=== PATIENT | male | born 1950 | race Two or more races ===

== ENCOUNTER 2025-01-23 12:00 | Inpatient (IN) | payer MEDICARE, OTHER ==
[~2025-01-23] VITALS: Ht 175.3 cm; Wt 63.0 kg
[2025-01-23] VITALS (7 sets, daily range): BP systolic 102–111; BP diastolic 64–79; PULSE 84–110; RESP 14–20; TEMP 97.8–99.6; O2SAT 92–99
--- NOTE | 2025-01-23 12:15 | ED.PDOC ---
History of Present Illness HPI Comments 74-year-old male came to the ER stating that he has been having cough shortness a breath with a past 10 days. He continues to smoke cigarettes. Does have a history of hypotension for which he states he does take his medication. He has not seen a doctor for some time as he moved up here recently. His saturation was in the low 80s when he arrived. He was placed on 2 L oxygen which increased to above 90%. He does use accessory muscles to help him breathe. No leg swelling. Denies chest pain. Denies any other symptoms. Chief Complaint: Shortness of Breath Time Seen by MD: 12:06 Reviewed Notes: Nurses Notes, Medications, Allergies Allergies: Coded Allergies: NO KNOWN ALLERGIES (Unverified , 01/23/25) Information Source: Patient Mode of Arrival: Wheelchair Severity: Moderate Timing: Days Duration: Since onset Past Medical History PAST MEDICAL HISTORY: HTN Surgical History: Denies all surgeries Social History Smoker: Cigarettes Alcohol: Denies ETOH Use Drugs: Denies Drug Use Constitutional: denies: chills, diaphoresis, fatigue, fever, malaise, sweats, weakness, others EENTM: denies: blurred vision, double vision, ear bleeding, ear discharge, ear drainage, ear pain, ear ringing, eye pain, eye redness, hearing loss, mouth pain, mouth swelling, nasal discharge, nose bleeding, nose congestion, nose pain, photophobia, tearing, throat pain, throat swelling, voice changes, others Respiratory: reports: cough, shortness of breath; denies: hemoptysis, orthopnea, SOB at rest, SOB with excertion, stridor, wheezing, others Cardiovascular: denies: chest pain, dizzy spells, diaphoresis, Dyspnea on exertion, edema, irregular heart beat, left arm pain, lightheadedness, palpitations, PND, syncope, others Gastrointestinal: denies: abdomen distended, abdominal pain, blood streaked bowels, constipated, diarrhea, dysphagia, difficulty swallowing, hematemesis, melena, nausea, poor appetite, poor fluid intake, rectal bleeding, rectal pain, vomiting, others Genitourinary: denies: burning, dysuria, flank pain, frequency, hematuria, incontinence, penile discharge, penile sore, pain, testicle pain, testicle swelling, urgency, others Neurological: denies: dizziness, fainting, headache, left sided numbness, left sided weakness, numbness, paresthesia, pre-existing deficit, right sided numbness, right sided weakness, seizure, speech problems, tingling, tremors, weakness, others Musculoskeletal: denies: back pain, gout, joint pain, joint swelling, muscle pain, muscle stiffness, neck pain, others Integumetry: denies: bruises, change in color, change in hair/nails, dryness, laceration, lesions, lumps, rash, wounds, others Allergic/Immunocompromised: denies: Difficulty Healing, Frequent Infections, Hives, Itching, others Hematologic/Lymphatic: denies: anemia, blood clots, easy bleeding, easy bruising, swollen glands, others Endocrine: denies: excessive hunger, excessive sweating, excessive thirst, excessive urination, flushing, intolerance to cold, intolerance to heat, unexplained weight gain, unexplained weight loss, others Psychiatric: denies: anxiety, bipolar disorder, depression, hopeless, panic disorder, schizophrenia, sleepless, suicidal, others Physical Exam General Appearance: Moderate Distress HEENT: Normal ENT Inspection, Pharynx Normal, TMs Normal Neck: Full Range of Motion, Non-Tender, Normal, Normal Inspection Respiratory: Accessory Muscle Use, Respiratory Distress, Wheezing Cardiovascular: No Edema, No JVD, No Murmur, No Gallop, Normal Peripheral Pulses, Tachycardia Breast Exam: Deferred Gastrointestinal: No Organomegaly, Non Tender, No Pulsatile Mass, Normal Bowel Sounds, Soft Genitalia: Deferred Pelvic: Deferred Rectal: Deferred Extremities: No calf tenderness, Normal inspection, Normal range of motion, No pedal edema Musculoskeletal : Apperance: Normal Neurologic: Alert, No Motor Deficits, No Sensory Deficits Cerebellar Function: NOT DONE Reflexes: NOT DONE Skin: Normal Color Peripheral Pulses: 3+ Radial (R), 3+ Radial (L) Lymphatic: No Adenopathy Was a procedure done? Was a procedure done?: No EKG EKG : Pulse Rate (adult): 139 Stanton: Normal Cardiac Rhythm: ST Differential Dx Considerations may include: Pneumonia Electrolyte imbalance X-Ray, Labs, Meds, VS Vital Signs Date Time Temp Pulse Resp B/P (MAP) Pulse Ox O2 Delivery O2 Flow Rate FiO2 01/23/25 13:17 84 20 Nasal Cannula* 2 28 01/23/25 12:45 99.6 121 20 102/79 (87) 98 99.6 01/23/25 12:45 121 22 98 Nasal Cannula 4.0 01/23/25 12:43 20 97 Nasal Cannula* 4 36 01/23/25 12:15 139 01/23/25 12:11 139 01/23/25 12:03 99.5 144 32 131/69 (89) 85 99.5 Lab Test 01/23/25 12:45 01/23/25 12:34 Range/Units White Blood Count 22.3 H 4.4-10.8 10^3/uL Red Blood Count 3.86 L 4.5-5.90 10^6/uL Hemoglobin 13.7 13.5-17.5 g/dL Hematocrit 38.9 L 41.0-53.0 % Mean Corpuscular Volume 100.8 H 80.0-100.0 fL Mean Corpuscular Hemoglobin 35.5 H 28.0-32.0 pg Mean Corpuscular Hemoglobin Concent 35.2 32.0-36.0 g/dL Red Cell Distribution Width 14.9 H 11.8-14.3 % Platelet Count 450 140-450 10^3/uL Mean Platelet Volume 7.6 6.9-10.8 fL Neutrophils (%) (Auto) 93.2 H 37.0-80.0 % Lymphocytes (%) (Auto) 2.6 L 10.0-50.0 % Monocytes (%) (Auto) 3.9 0.0-12.0 % Eosinophils (%) (Auto) 0.0 0.0-7.0 % Basophils (%) (Auto) 0.3 0.0-2.0 % Neutrophils # (Auto) 20.8 H 1.6-8.6 10 ^3/uL Lymphocytes # (Auto) 0.6 0.4-5.4 10 ^3/uL Monocytes # (Auto) 0.9 0-1.3 10 ^3/uL Eosinophils # (Auto) 0 0-0.8 10 ^3/uL Basophils # (Auto) 0.1 0-0.2 10 ^3/uL Nucleated Red Blood Cells 0.0 % Sodium Level 129 L 136-145 mmol/L Potassium Level 4.5 3.5-5.1 mmol/L Chloride Level 91 L 98-107 mmol/L Carbon Dioxide Level 29 20-31 mmol/L Anion Gap 9 5-15 Blood Urea Nitrogen 23 9-23 mg/dL Creatinine 0.95 0.700-1.30 mg/dL Glomerular Filtration Rate Calc 83 >90 mL/min BUN/Creatinine Ratio 24.2 H 10.0-20.0 Serum Glucose 146 H 74-106 mg/dL Lactic Acid Level 2.7 *H 0.4-2.0 mmol/L Calcium Level 8.4 L 8.7-10.4 mg/dL Troponin I High Sensitivity 29 </=54 ng/L Blood Gas Specimen Type Arterial Blood Gas Sample Site Left radial Blood Gas Patient Temperature 37.0 Arterial Blood Date Drawn [id number] Arterial Blood pH 7.571 *H 7.350-7.450 Arterial Blood Partial Pressure CO2 29.4 L 35.0-48.0 mmHg Arterial Blood Partial Pressure O2 78.7 L 83.0-108.0 mmHg Arterial Blood HCO3 26.4 21.0-28.0 mmol/L Arterial Blood Oxygen Saturation 96.0 94.0-98.0 % Arterial Blood Base Excess 5.0 H -2.0-3.0 mmol/L Arterial Blood Oxyhemoglobin 94.8 94.0-98.0 % Arterial Blood Carboxyhemoglobin 0.9 0.5-1.5 % Arterial Blood Methemoglobin 0.4 0.0-1.5 % Tyron Test Yes Blood Gas Total Hemoglobin 13.50 13.5-17.5 g/dL Blood Gas Liter Flow 4.00 Blood Gas Modality Nasal cannula FiO2 % 36.0 Blood Gas Critical Value Read Back yes Blood Gas Notified Whom lida Yarbrough md Blood Gas Notified Time [id number] Blood Gas Notified By Current Medications Medications (Trade) Dose Ordered Sig/Sobeida Route Start Time Stop Time Status Last Admin Ceftriaxone Sodium 50 ml @ 100 mls/hr ONCE ONCE IV 01/23/25 12:15 01/23/25 12:44 DC 01/23/25 13:00 Azithromycin 250 ml @ 125 mls/hr ONCE ONCE IV 01/23/25 12:15 01/23/25 14:14 01/23/25 13:13 Methylprednisolone Sodium Succinate (Solu Medrol) 125 mg ONCE ONCE IV 01/23/25 12:15 01/23/25 12:17 DC 01/23/25 13:00 Albuterol (Ventolin Medneb) 5 mg ONCE ONCE NEB 01/23/25 12:15 01/23/25 12:17 DC 01/23/25 12:43 Ipratropium [place] (Atrovent Medneb) 0.5 mg ONCE ONCE NEB 01/23/25 12:15 01/23/25 12:17 DC 01/23/25 12:43 Magnesium Sulfate/ Dextrose 100 ml @ 100 mls/hr ONCE ONCE IV 01/23/25 12:15 01/23/25 13:14 DC 01/23/25 13:13 Patient alert. Complaining of shortness a breath. Vitals stable. Placed on oxygen. Continues to smoke cigarettes. Counseled patient on effects of smoking cigarettes for 15 minutes. Establish intravenous access. Was given steroid. Was given Rocephin. Was given azithromycin. Was given breathing treatment. Reviewed his history pain EKG reviewed does not show any acute changes. Explained to the patient. Continue cardiac monitoring. Chest x-ray reviewed does show pneumonia. Chest XR: FINDINGS: Lines and Tubes: None Lungs: Right upper lung consolidative opacity. Pleura: No effusion. No pneumothorax. Cardiomediastinal contours: Unremarkable Bones: No acute osseous abnormality. IMPRESSION: Right upper lung pneumonia. Images Reviewed?: Images reviewed and evaluated by me Time of 1ST Reevaluation: 12:12 Reevaluation 1ST: Unchanged Patient Education/Counseling: Diagnosis, Treatment, Prognosis Family Education/Counseling: No Family Present Departure 1 Departure Time of Disposition: 12:14 Impression: Primary Impression: Acute respiratory failure Qualified Codes: J96.01 - Acute respiratory failure with hypoxia Additional Impression: Pneumonia Qualified Codes: J18.9 - Pneumonia, unspecified organism Disposition: ADMITTED INPATIENT Admit to: Med Surg Condition: Guarded Critical Care Note Critical Care Time?: Yes (90 min-critical care time only) Critical care comment: Continue to monitor Stability Stability form required: No Heart Score Heart Score: Heart Score Response (Comments) Value History Slightly Suspicious 0 EKG Normal 0 Age >65 2 Risk Factors >3 or Hx ASHD 2 Troponin Normal limit 0 Total 4 I personally scribed for JESSE YARBROUGH MD ([email or web address]) on 01/23/25 at 13:49. Electronically submitted by Richard Neal ([email or web address]). JESSE YARBROUGH MD Jan 23, 2025 12:15
--- NOTE | 2025-01-23 12:23 | ECG ---
[facility] Test Date: 2025-01-23 Test Time: 12:11:49 Pat Name: AVRIL JENKINS Department: ER Room: Gender: M Skiff Operator: KARMEN : 1950 Requested By: JESSE YARBROUGH Order Number: [id number] Reading MD: Thom Hernandez Measurements Intervals [place] Rate: 139 P: 72 DC: 128 QRS: 31 QRSD: 76 T: 59 QT: 303 QTc: 461 Interpretive Statements Sinus tachycardia Ventricular premature complex Abnormal R-wave progression, early transition Electronically Signed On 01-23-2025 13:48:07 PDT by Thom Hernandez Please click the below link to view image of tracing.
[2025-01-23] MEDS: ALBUTEROL SULF 2.5 MG/0.5ML(0.5%) NEB SOLN NEB ONE (12:43)
[2025-01-23] MEDS: IPRATROPIUM BROM 0.5 MG/2.5ML INH SOL NEB ONE (12:43)
--- NOTE | 2025-01-23 12:52 | DVH ---
EXAM: XY CHEST PORTABLE Indication: sob Technique: Single frontal view of the chest was obtained Comparison: None FINDINGS: Lines and Tubes: None Lungs: Right upper lung consolidative opacity. Pleura: No effusion. No pneumothorax. Cardiomediastinal contours: Unremarkable Bones: No acute osseous abnormality. IMPRESSION: Right upper lung pneumonia.
[2025-01-23] MEDS: cefTRIAXone 1GM/50ML D5W 50 ML IV ONE (13:00)
[2025-01-23] MEDS: methylPREDNISolone SOD SUCC 125 MG/2 ML VL IV ONE (13:00)
[2025-01-23 13:03] LABS: Eosinophils # (auto) 0 10 ^3/uL (0-0.8); Hemoglobin 13.7 g/dL (13.5-17.5); Lymphocytes # (auto) 0.6 10 ^3/uL (0.4-5.4)
[2025-01-23 13:04] LABS: Basophils # (auto) 0.1 10 ^3/uL (0-0.2); Basophils % (auto) 0.3 % (0.0-2.0); Hematocrit 38.9 % (41.0-53.0); Lymphocytes % (auto) 2.6 % (10.0-50.0); Mean Corpuscular Hemoglobin 35.5 pg (28.0-32.0); Mean Corpuscular Hgb Conc. 35.2 g/dL (32.0-36.0); Mean Corpuscular Volume 100.8 fL (80.0-100.0); Monocytes # (auto) 0.9 10 ^3/uL (0-1.3); Monocytes % (auto) 3.9 % (0.0-12.0); Neutrophils # (auto) 20.8 10 ^3/uL (1.6-8.6); Neutrophils % (auto) 93.2 % (37.0-80.0); Platelet Count (auto) 450 10^3/uL (140-450); Red Blood Cells 3.86 10^6/uL (4.5-5.90); Red Cell Distribution Width 14.9 % (11.8-14.3); White Blood Cell 22.3 10^3/uL (4.4-10.8)
[2025-01-23 13:10] LABS: Potassium 4.5 mmol/L (3.5-5.1)
[2025-01-23 13:11] LABS: Anion Gap 9 (5-15); Carbon Dioxide 29 mmol/L (20-31)
[2025-01-23] MEDS: AZITHROMYCIN 500MG/ 250ML 250 ML IV ONE (13:13)
[2025-01-23] MEDS: MAGNESIUM SULFATE 1GM/100ML 100 ML IV ONE (13:13)
[2025-01-23 13:15] LABS: Calcium 8.4 mg/dL (8.7-10.4); Chloride 91 mmol/L (98-107); Sodium 129 mmol/L (136-145)
[2025-01-23 13:16] LABS: BUN/Creatinine Ratio 24.2 (10.0-20.0); Blood Urea Nitrogen 23 mg/dL (9-23)
[2025-01-23 13:17] LABS: Glucose 146 mg/dL (74-106)
[2025-01-23 13:20] LABS: Lactic Acid w/Reflex 2.7 mmol/L (0.4-2.0)
[2025-01-23] MEDS: SODIUM CHLORIDE 0.9% 1,000 ML IV ONE ×3 (14:15→15:30)
[2025-01-23] MEDS ORDERED: ACETAMINOPHEN 325 MG TAB PO PRN (16:00)
[2025-01-23] MEDS ORDERED: VANCOMYCIN PER PHARMACY 0 MG IV SCH ×2 (16:00→16:15)
[2025-01-23] MEDS ORDERED: HYDROcodone-ACET 5/325MG TAB PO PRN (16:00)
--- NOTE | 2025-01-23 16:24 | DVHHPRES ---
History of Present Illness Resident Creating Document: EDWARD WU RESIDENT History of Present Illness This is a 74-year-old male with past medical history of hypertension and chronic back pain. Patient presented to the ED due to chronic cough associated with shortness of breaths and right upper chest tenderness. Patient states that the cough started two weeks ago initially was not associated with tenderness for shortness of breaths. Patient states that after a couple of days of chronic cough he started developing right upper chest tenderness associated with shortne ss of breaths and sputum production that was yellowish in color. Patient also states that five days ago he started developing a lump in the right upper chest which is erythematous, warmth to palpation and very tender to soft touch as well. Patient reports decreasing appetite and has lost a couple of lb in the last week but when asked about weight loss in the past six months the patient denied. The patient also reported recent night sweats but denied fever or chills. Initial labs [place] [address] with unremarkable BNP. Lactic acid was elevated at 2.7, troponins came back negative, EKG was showing sinus tachycardia with no ST segment abnormalities. Patient was initially placed on 4 L of oxygen through nasal cannula and was sta rted on IV antibiotics and steroids. Initial chest x-ray was ordered showing a right upper lung opacity. Upon my examination, there is a erythematous elevated lump located in the right upper chest the level of the clavicle that is erythematous and warm and tender to palpation. We will order a CT scan of the chest without contrast to determine if the opacity seen in the x-ray is actually inside or outside the lung. We will admit the patient for further assessment and management. Cardiovascular: HTN Musculoskeletal: Chronic low back pain Past Surgical History: None Family History: None Smoke: No ALCOHOL: none Drugs: Marijuana Lives: with Family Domestic Violence: Neg Review of Systems Constitutional: No: Fever, Chills, Sweats, Weakness, Malaise, Other Eyes: No: Pain, Vision change, Conjunctivae inflammation, Eyelid inflammation, Other, Redness ENT: No: Ear pain, Ear discharge, Nose pain, Nose discharge, Nose congestion, Mouth pain, Mouth swelling, Throat pain, Throat swelling, Other Respiratory: Cough, Shortness of breath, SOB with excertion; No: Dry, Wheezing, Hemoptysis, Pleuritic Pain, Sputum, Wheezing, Other Cardiovascular: Chest Pain; No: Palpitations, Orthopnea, Paroxysmal Noc. Dyspnea, Edema, Lt Headedness, Other Gastrointestinal: No: Nausea, Vomiting, Abdominal Pain, Diarrhea, Constipation, Melena, Hematochezia, Other Genitourinary: No Dysuria, No Frequency, No Incontinence, No Hematuria, No Retention, No Other Musculoskeletal: neck pain (Neck pain in the right side), shoulder pain (Shoulder pain), arm pain (Arm pain); No: other, back pain, hand pain, leg pain, foot pain Skin: Other (There is a lump with erythema, warm and tender to palpation in the right upper chest); No: Rash, Lesions, Jaundice, Bruising Neurological: No: Weakness, Numbness, Incoordination, Change in speech, Confusion, Seizures, Other Allergies: Coded Allergies: NO KNOWN ALLERGIES (Unverified , 01/23/25) Exam Vital Signs Vital Signs Date Time Temp Pulse Resp B/P (MAP) Pulse Ox O2 Delivery O2 Flow Rate FiO2 01/23/25 13:17 84 20 Nasal Cannula* 2 28 01/23/25 12:45 99.6 102/79 (87) 99.6 General Appearance: Alert, Oriented X3, Cooperative, No acute distress HEENT: Atraumatic, PERRLA, EOMI, Mucous membr. moist/pink Respiratory: Clear to auscultation, Normal air movement Cardiovascular: Regular rate, Normal S1, Normal S2, No murmurs, Other (There is a lump with erythema, warm and tender to palpation in the right upper chest) Abdominal: Normal bowel sounds, Soft, No tenderness, No hepatospenomegaly, No masses Extremities: No clubbing, No cyanosis, No edema, Normal pulses, No tenderness/swelling Skin: No rashes, No breakdown, No significant lesion (There is a lump with erythema, warm and tender to palpation in the right upper chest) Neuro: Normal gait, Normal speech, Strength at 5/5 X4 ext, Normal tone, Sensation intact, Cranial nerves 3-12 NL, Reflexes 2+ Psych/Mental Status: Mental status NL, Mood NL Labs/Xrays Labs Test 01/23/25 14:50 01/23/25 13:56 01/23/25 12:45 01/23/25 12:34 Range/Units Lactic Acid Level 2.6 *H 0.4-2.0 mmol/L Troponin I High Sensitivity 29 </=54 ng/L White Blood Count 22.3 H 4.4-10.8 10^3/uL Red Blood Count 3.86 L 4.5-5.90 10^6/uL Hemoglobin 13.7 13.5-17.5 g/dL Hematocrit 38.9 L 41.0-53.0 % Mean Corpuscular Volume 100.8 H 80.0-100.0 fL Mean Corpuscular Hemoglobin 35.5 H 28.0-32.0 pg Mean Corpuscular Hemoglobin Concent 35.2 32.0-36.0 g/dL Red Cell Distribution Width 14.9 H 11.8-14.3 % Platelet Count 450 140-450 10^3/uL Mean Platelet Volume 7.6 6.9-10.8 fL Neutrophils (%) (Auto) 93.2 H 37.0-80.0 % Lymphocytes (%) (Auto) 2.6 L 10.0-50.0 % Monocytes (%) (Auto) 3.9 0.0-12.0 % Eosinophils (%) (Auto) 0.0 0.0-7.0 % Basophils (%) (Auto) 0.3 0.0-2.0 % Neutrophils # (Auto) 20.8 H 1.6-8.6 10 ^3/uL Lymphocytes # (Auto) 0.6 0.4-5.4 10 ^3/uL Monocytes # (Auto) 0.9 0-1.3 10 ^3/uL Eosinophils # (Auto) 0 0-0.8 10 ^3/uL Basophils # (Auto) 0.1 0-0.2 10 ^3/uL Nucleated Red Blood Cells 0.0 % Sodium Level 129 L 136-145 mmol/L Potassium Level 4.5 3.5-5.1 mmol/L Chloride Level 91 L 98-107 mmol/L Carbon Dioxide Level 29 20-31 mmol/L Anion Gap 9 5-15 Blood Urea Nitrogen 23 9-23 mg/dL Creatinine 0.95 0.700-1.30 mg/dL Glomerular Filtration Rate Calc 83 >90 mL/min BUN/Creatinine Ratio 24.2 H 10.0-20.0 Serum Glucose 146 H 74-106 mg/dL Calcium Level 8.4 L 8.7-10.4 mg/dL Blood Gas Specimen Type Arterial Blood Gas Sample Site Left radial Blood Gas Patient Temperature 37.0 Arterial Blood Date Drawn [id number] Arterial Blood pH 7.571 *H 7.350-7.450 Arterial Blood Partial Pressure CO2 29.4 L 35.0-48.0 mmHg Arterial Blood Partial Pressure O2 78.7 L 83.0-108.0 mmHg Arterial Blood HCO3 26.4 21.0-28.0 mmol/L Arterial Blood Oxygen Saturation 96.0 94.0-98.0 % Arterial Blood Base Excess 5.0 H -2.0-3.0 mmol/L Arterial Blood Oxyhemoglobin 94.8 94.0-98.0 % Arterial Blood Carboxyhemoglobin 0.9 0.5-1.5 % Arterial Blood Methemoglobin 0.4 0.0-1.5 % Tyron Test Yes Blood Gas Total Hemoglobin 13.50 13.5-17.5 g/dL Blood Gas Liter Flow 4.00 Blood Gas Modality Nasal cannula FiO2 % 36.0 Blood Gas Critical Value Read Back yes Blood Gas Notified Whom lida Campbell md Blood Gas Notified Time [id number] Blood Gas Notified By Assessment/Plan Assessment/Plan Assessment/Plan Acute Hypoxic respiratory failure likely due to Gram-positive/Gram-negative pneumonia Possible right upper chest cellulitis, R/O Abscess Sepsis sec to above -we will chest x-ray is showing a right upper lobe opacity, not clear if it is actually inside the lung or it could be an abscess outside the lung. -1 L of fluid bolus NS -start IV vancomycin -start IV Zosyn -Ordered CT scan of the chest with contrast -lactic acid was 2.7 -EKG showed sinus tachycardia with no ST segment elevation or depression. -troponins came back normal -currently on 4 L of oxygen through nasal cannula saturating 97% -ordered urine and blood cultures -ordered sputum culture and MRSA nares -respiratory therapy with albuterol and ipratropium med nebs q.6 Primary hypertension -BP currently on lower side -Monitor BP and add meds as needed chronic back pain -continue baclofen 5mg daily Goals of care discussed with the patient and son at bedside for >30min, FULL CODE Plan discussed with Dr. Ornelas Plan discussed with: Patient, Son My Orders Orders - WUILLEMIER C,EDWARD RESIDENT Procedure Category Date Status Time Admit ADMIT 01/23/25 Transmitted 15:51 Code Status CODE 01/23/25 Transmitted 15:51 Vital Signs [facility] 01/23/25 In Process 15:51 Review Orders With [facility] 01/23/25 In Process Adm.Md 15:51 Encourage Activity As [facility] 01/23/25 In Process Tolerate 15:51 Regular Diet DIET 01/23/25 Transmitted Dinner Acetaminophen Tablet [facility] 01/23/25 Logged (Tylenol Tablet) 16:00 Notify Md Of Changes [facility] 01/23/25 In Process From Base 15:51 Advance Directive [facility] 01/23/25 In Process 15:51 Urinalysis LAB 01/23/25 Logged 15:51 Complete Blood Count LAB 01/24/25 Verified 04:00 Lipid Panel LAB 01/23/25 Logged 15:51 Urine Bacterial MANA 01/23/25 Logged Culture 15:51 Patient Condition ORDERS 01/23/25 Transmitted 15:51 Allergies [facility] 01/23/25 In Process 15:51 Hydrocodone-Acet PHA 01/23/25 Logged 5/325mg Tab (Ancram 16:00 Drug Screen LAB 01/23/25 Logged 15:51 Hemoglobin A1c LAB 01/23/25 Logged 15:51 Enoxaparin Sodium PHA 01/24/25 Logged (Lovenox) 10:00 Vancomycin Per PHA 01/23/25 Logged Pharmacy 16:00 Piperacillin-Tazob PHA 01/23/25 Logged 3.375gm (Zosyn 3.375g 18:00 Blood Culture MANA 01/23/25 Logged 16:[address] 01/23/25 Logged 16:01 Lactic Acid W/ Reflex LAB 01/23/25 Verified Order 16:15 Date of Service: Jan 23, 2025 Billing Provider: KEIKO ORNELAS MD Common Visit Codes: 19542-[id number] INP/OBS CARE (HIGH) Secondary Visit Codes: 19434-[id number] CARE PLAN 30 MINUTES ED[facility] WU RESIDENT Jan 23, 2025 16:24 KEIKO ORNELAS MD Jan 23, 2025 17:00
[2025-01-23 16:25] LABS: LDL Cholesterol 57 mg/dL (< 100); Triglycerides 127 mg/dL (< 150)
[2025-01-23 16:27] LABS: Cholesterol 105 mg/dL (< 200)
[2025-01-23 16:28] LABS: HDL Cholesterol 8 mg/dL (40-59)
--- NOTE | 2025-01-23 17:00 | DVH ---
Procedure: CT CHEST WITHOUT CONTRAST Study Date and Requested Time: 01/23 04:11 PM Streak: RIGHT UPPER CHEST CELLULITIS/ABSCESS VS RUL PNA Comparison: Chest radiograph 01/23/2025 Dose: CTDI: 15.89 mGy DLP: 647.64 mGycm Technique: Multiplanar images obtained through the chest without contrast Findings: Large area of multiloculated complex fluid collection with internal foci of air extending from the vi sualized right lower neck to the right anterior upper chest wall with extension into the soft tissues posterior to the medial sternum and medial 1st and 2nd ribs. There is mild to moderate soft tissue edema of the partially visualized right lower neck and right-si ded chest wall with involvement of the visualized proximal right upper extremity. Minimal soft tissue edema of the left chest wall. There is asymmetric enlargement of the right upper anterior chest wall muscles. There is mass effect on the right thyroid lobe by the collection. Otherwise, the thyroid gland is un remarkable.. Heart size is within normal limits. No evidence of aortic aneurysm. The pulmonary trunk is normal in size. No significant lymphadenopathy. Severe emphysematous changes bilateral lungs. No pneumothorax. Scattered bilateral lung atelectasis a nd scarring. Trace left-sided pleural effusion. No destructive osseous lesions are noted. Multilevel mild loss of vertebral body height of the thorac ic spine which appears chronic. Impression: Soft tissue edema of the [id number]-[id number]-left chest wall with complex multiloculated fluid collect ion with multiple foci of air extending from the right lower neck soft tissues to the right anterior upper chest musculatures with extension posterior to the right medial clavicle and posterior to the 1 st and 2nd ribs. There is mass effect on the anterior superior right upper lobe by the complex collection without invo lvement of the lung parenchyma. Severe emphysematous changes of bilateral lungs with scattered areas of atelectasis / scarring.
[2025-01-23] MEDS: VANCOMYCIN 1GM/200ML PM 200 ML IV ONE (17:45)
[2025-01-23] MEDS ORDERED: PIPERACILLIN-TAZOB 3.375GM 100 ML IV SCH ×2 (18:00)
[2025-01-23] MEDS: CLINDAMYCIN 600MG IV 50 ML IV ONE (18:15)
[2025-01-23] MEDS: HYDROcodone-ACET 5/325MG TAB PO PRN (18:19)
[2025-01-23] MEDS: IPRATROPIUM BROM 0.5 MG/2.5ML INH SOL NEB SCH (18:32)
[2025-01-23] MEDS: ALBUTEROL SULF 2.5 MG/0.5ML(0.5%) NEB SOLN NEB SCH (18:32)
[2025-01-23 18:42] LABS: Cannabinoid Screen, Urine Pos (NEGATIVE)
[2025-01-23 18:47] LABS: Urine Bacteria FEW /hpf (None Seen); Urine Blood 1+ /uL (Negative); Urine Budding Yeast OCCASIONAL /hpf (None Seen); Urine Clarity Turbid (Clear); Urine Color Dark-Yellow (Yellow); Urine Mucus FEW (None Seen); Urine Protein, UAD TRACE (Negative); Urine Squamous Epithelial Cell FEW /hpf (<5); Urine Urobilinogen OVER mg/dL (Negative); Urine WBC 16 /HPF (0-3); Urine pH 5.5 (5.0-9.0)
[2025-01-23 18:49] LABS: Amphetamine Screen, Urine Neg (NEGATIVE); Barbiturate Scree,Urine Neg (NEGATIVE); Benzodiazephine Screen, Urine Neg (NEGATIVE); Cocaine Screen, Urine Neg (NEGATIVE); Opiate Scree,Urine Neg (NEGATIVE); Phencyclidine Screen, Urine Neg (NEGATIVE)
[2025-01-23] MEDS: IPRATROPIUM BROM 0.5 MG/2.5ML INH SOL ONE (18:52)
[2025-01-23] MEDS: ALBUTEROL SULF 2.5 MG/0.5ML(0.5%) NEB SOLN ONE (18:52)
[2025-01-23] MEDS: MEROPENEM 1GM IVPB 50 ML IV ONE (19:30)
--- NOTE | 2025-01-23 19:47 | DVHINCON2 ---
Date of service: Jan 23, 2025 History of Present Illness HPI 74-year-old male presented to the emergency department with a cough, shortness of breath, and tenderness in the upper chest.The cough began a couple of weeks ago, as he woke up one morning experiencing it. After a few days of having this chronic cough, he developed tenderness in the right upper chest, which was accompanied by shortness of breath and sputum production. The sputum was yellowi sh in color.Five days ago, he noticed a painful lump on his right chest. This lump in the right upper chest is erythematous and warm to the touch. Additionally, he has experienced a decrease in appetite and has lost a few pounds over the past week. Past Medical History Cardiac: HTN Pulmonary: No pertinent Hx Central Nervous System: No pertinent Hx GI: No pertinent Hx Hemotology/Oncology: No pertinent Hx Hepatobiliary: No pertinent Hx Psychiatric: No pertinent Hx Musculoskeletal: Chronic low back pain Rheumotologic: No pertinent Hx Infectious Disease: No peritnent Hx ENT: No pertinent Hx Endocrine: No pertinent Hx Dermatology: No pertinent Hx Past Surgical History: No pertinent Hx Smoker: Positive Alocohol: None Drugs: Marijuana Lives with: With family Review of Systems Constitutional: No symptom reported Ears, Nose, & Throat: No symptom reported Eyes: No symptom reported Pulmonary/Respiratory: Cough, Other (shortness of breath) Gastrointestinal: No symptom reported Genitourinary: No symptom reported Musculoskeletal: No symptom reported Skin: No symptom reported Psychiatric: No symptom reported Endocrine: No symptom reported Hemotologic/Lymphatic: No symptom reported H&P Exam Vital Signs Vital Signs Date Time Temp Pulse Resp B/P (MAP) Pulse Ox O2 Delivery O2 Flow Rate FiO2 01/23/25 18:43 110 20 95 Nasal Cannula* 4 36 01/23/25 18:41 98.8 114/71 (85) 98.8 General Appeara: Well developed, Well nourished, Normal Appearance Head Exam: Normal inspection Neck Exam: Normal inspection Pulmonary/Respiratory: Normal inspection Skin Exam: Other (right chest lump, red and tender) Labs/Xrays Labs Test 01/23/25 17:35 01/23/25 15:58 01/23/25 14:50 01/23/25 12:45 Range/Units Urine Color Dark-yellow Yellow Urine Clarity Turbid H Clear Urine pH 5.5 5.0-9.0 Urine Specific [place] 1.020 1.001-1.035 Urine Protein Trace H Negative Urine Ketones Negative Negative Urine Blood 1+ H Negative /uL Urine Nitrite Negative Negative Urine Bilirubin 1+ Negative Urine Urobilinogen Over Negative mg/dL Urine Leukocyte Esterase 1+ Negative /uL Urine RBC 3 0 - 3 /hpf Urine Microscopic WBC 16 H 0-3 /HPF Urine Squamous Epithelial Cells Few <5 /hpf Urine Bacteria Few H None Seen /hpf Urine Mucus Few None Seen Urine Yeast (Budding) Occasional None Seen /hpf Urine Glucose Normal Normal mg/dL Urine Opiates Screen Neg NEGATIVE Urine Fentanyl Screen Neg NEGATIVE Urine Barbiturates Screen Neg NEGATIVE Urine Phencyclidine Screen Neg NEGATIVE Urine Amphetamines Screen Neg NEGATIVE Urine Benzodiazepines Screen Neg NEGATIVE Urine Cocaine Screen Neg NEGATIVE Urine Cannabinoids Screen Pos NEGATIVE Troponin I High Sensitivity 25 </=54 ng/L Lactic Acid Level 2.6 *H 0.4-2.0 mmol/L White Blood Count 22.3 H 4.4-10.8 10^3/uL Red Blood Count 3.86 L 4.5-5.90 10^6/uL Hemoglobin 13.7 13.5-17.5 g/dL Hematocrit 38.9 L 41.0-53.0 % Mean Corpuscular Volume 100.8 H 80.0-100.0 fL Mean Corpuscular Hemoglobin 35.5 H 28.0-32.0 pg Mean Corpuscular Hemoglobin Concent 35.2 32.0-36.0 g/dL Red Cell Distribution Width 14.9 H 11.8-14.3 % Platelet Count 450 140-450 10^3/uL Mean Platelet Volume 7.6 6.9-10.8 fL Neutrophils (%) (Auto) 93.2 H 37.0-80.0 % Lymphocytes (%) (Auto) 2.6 L 10.0-50.0 % Monocytes (%) (Auto) 3.9 0.0-12.0 % Eosinophils (%) (Auto) 0.0 0.0-7.0 % Basophils (%) (Auto) 0.3 0.0-2.0 % Neutrophils # (Auto) 20.8 H 1.6-8.6 10 ^3/uL Lymphocytes # (Auto) 0.6 0.4-5.4 10 ^3/uL Monocytes # (Auto) 0.9 0-1.3 10 ^3/uL Eosinophils # (Auto) 0 0-0.8 10 ^3/uL Basophils # (Auto) 0.1 0-0.2 10 ^3/uL Nucleated Red Blood Cells 0.0 % Sodium Level 129 L 136-145 mmol/L Potassium Level 4.5 3.5-5.1 mmol/L Chloride Level 91 L 98-107 mmol/L Carbon Dioxide Level 29 20-31 mmol/L Anion Gap 9 5-15 Blood Urea Nitrogen 23 9-23 mg/dL Creatinine 0.95 0.700-1.30 mg/dL Glomerular Filtration Rate Calc 83 >90 mL/min BUN/Creatinine Ratio 24.2 H 10.0-20.0 Serum Glucose 146 H 74-106 mg/dL Hemoglobin A1c 5.5 <5.7 % A1C Calcium Level 8.4 L 8.7-10.4 mg/dL B-Type Natriuretic Peptide 73.15 0-100 pg/mL Triglycerides Level 127 < 150 mg/dL Cholesterol Level 105 < 200 mg/dL LDL Cholesterol 57 < 100 mg/dL HDL Cholesterol 8 L 40-59 mg/dL Test 01/23/25 12:34 Range/Units Blood Gas Specimen Type Arterial Blood Gas Sample Site Left radial Blood Gas Patient Temperature 37.0 Arterial Blood Date Drawn [id number] Arterial Blood pH 7.571 *H 7.350-7.450 Arterial Blood Partial Pressure CO2 29.4 L 35.0-48.0 mmHg Arterial Blood Partial Pressure O2 78.7 L 83.0-108.0 mmHg Arterial Blood HCO3 26.4 21.0-28.0 mmol/L Arterial Blood Oxygen Saturation 96.0 94.0-98.0 % Arterial Blood Base Excess 5.0 H -2.0-3.0 mmol/L Arterial Blood Oxyhemoglobin 94.8 94.0-98.0 % Arterial Blood Carboxyhemoglobin 0.9 0.5-1.5 % Arterial Blood Methemoglobin 0.4 0.0-1.5 % Tyron Test Yes Blood Gas Total Hemoglobin 13.50 13.5-17.5 g/dL Blood Gas Liter Flow 4.00 Blood Gas Modality Nasal cannula FiO2 % 36.0 Blood Gas Critical Value Read Back yes Blood Gas Notified Whom lida Campbell md Blood Gas Notified Time [id number] Blood Gas Notified By Assessment/Plan Problem List: (1) Chest wall tenderness (2) Swelling, mass, or lump in chest (3) Acute respiratory failure (4) Pneumonia Plan Right upper chest: There is a soft lump that presents with warmth, redness (erythema), and tenderness to palpation. It does not appear to be necrotizing fasciitis. The case was discussed with Dr. Yang, as the patient is refusing surgery. I explained to the patient that he has an elevated white blood cell count, fever, and the results of the CT scan. Despite this, the patient continues to refuse surgical intervention. He expressed concerns about his ability to withstand surgery and mentioned feeling weak. The patient also stated that he has already discussed his decision with his and son, expressing that he does not want to proceed with surgery. as the patient is refusing surgery. I explained to the patient that he has an elevated white blood cell count, fever, and the results of the CT scan. Despite this, the patient continues to refuse surgical intervention. He expressed concerns about his ability to withstand surgery and mentioned feeling weak. The patient also stated that he has already discussed his decision with his and son, expressing that he does not want to proceed with surgery. Continue with IV antibiotics Plan discussed with: Patient, Other (Dr. Yang) Visit Coding Surgery Date of Service if different f: Jan 23, 2025 Billing Provider: PORFIRIO YANG MD Surgery Visit Codes: [id number] - INP CONSULT <80 MIN KARTHIK BURDICK NP Jan 23, 2025 19:47
[2025-01-23] MEDS ORDERED: BACLOFEN 10 MG TAB PO SCH (21:00)
[2025-01-23] MEDS: BACLOFEN 10 MG TAB PO SCH (23:45)
[2025-01-24] VITALS (16 sets, daily range): BP systolic 115–125; BP diastolic 67–76; PULSE 58–118; RESP 16–18; TEMP 97.3–98.7; O2SAT 91–100
[2025-01-24] MEDS: IPRATROPIUM BROM 0.5 MG/2.5ML INH SOL ONE ×3 (00:36→23:50)
[2025-01-24] MEDS: ALBUTEROL SULF 2.5 MG/0.5ML(0.5%) NEB SOLN ONE ×3 (00:40→23:51)
[2025-01-24] MEDS: MEROPENEM 1GM IVPB 50 ML IV SCH (03:54)
[2025-01-24] MEDS: CLINDAMYCIN 900MG IV 50 ML IV SCH (06:03)
[2025-01-24 07:41] LABS: Eosinophils # (auto) 0 10 ^3/uL (0-0.8); Hematocrit 33.5 % (41.0-53.0); Hemoglobin 11.6 g/dL (13.5-17.5); Lymphocytes # (auto) 0.9 10 ^3/uL (0.4-5.4); Mean Corpuscular Hgb Conc. 34.7 g/dL (32.0-36.0); Neutrophils # (auto) 15.9 10 ^3/uL (1.6-8.6); Platelet Count (auto) 424 10^3/uL (140-450)
[2025-01-24 07:45] LABS: Basophils # (auto) 0.1 10 ^3/uL (0-0.2); Basophils % (auto) 0.3 % (0.0-2.0); Lymphocytes % (auto) 5.1 % (10.0-50.0); Mean Corpuscular Hemoglobin 35.5 pg (28.0-32.0); Mean Corpuscular Volume 102.1 fL (80.0-100.0); Monocytes # (auto) 0.8 10 ^3/uL (0-1.3); Monocytes % (auto) 4.5 % (0.0-12.0); Neutrophils % (auto) 90.1 % (37.0-80.0); Red Blood Cells 3.28 10^6/uL (4.5-5.90); Red Cell Distribution Width 15.2 % (11.8-14.3); White Blood Cell 17.7 10^3/uL (4.4-10.8)
--- NOTE | 2025-01-24 09:12 | DVHINCON2 ---
Date of service: Jan 24, 2025 Family History: Patient reports no known family medical history. Allergies: Coded Allergies: NO KNOWN ALLERGIES (Unverified , 01/23/25) Home Meds Unable to Obtain Active Prescriptions or Reported Meds Current Medications Current Medications Medications (Trade) Dose Ordered Sig/Sobeida Route PRN Reason Start Time Stop Time Status Last Admin Acetaminophen (Tylenol Tablet) 650 mg Q6HP PRN PO PAIN SCALE 1-3 OR TEMP>100.4 01/23/25 16:00 01/23/25 16:11 DC Acetaminophen/ Hydrocodone Bitart ([place] 5/325MG Tab) 1 tab Q4HP PRN PO MODERATE PAIN (4-6 PAIN SCALE) 01/23/25 16:00 01/23/25 16:11 DC Enoxaparin Sodium (Lovenox) 40 mg DAILY SC 01/24/25 10:00 01/23/25 16:11 DC Vancomycin HCl 0 ml @ 0 mls/hr UD IV 01/23/25 16:00 01/23/25 16:11 DC Piperacillin Sod/ Tazobactam Sod 100 ml @ 100 mls/hr Q6HR IV 01/23/25 18:00 01/23/25 16:11 DC Albuterol (Ventolin Medneb) 2.5 mg Q6HR NEB 01/23/25 18:00 01/24/25 06:20 Ipratropium [place] (Atrovent Medneb) 0.5 mg Q6HR NEB 01/23/25 18:00 01/24/25 06:20 Baclofen (Liorisal Tablet) 5 mg DAILY PO 01/23/25 21:00 01/23/25 23:37 DC Enoxaparin Sodium (Lovenox) 40 mg DAILY SC 01/24/25 10:00 Vancomycin HCl 0 ml @ 0 mls/hr UD IV 01/23/25 16:15 Piperacillin Sod/ Tazobactam Sod 100 ml @ 100 mls/hr Q6HR IV 01/23/25 18:00 01/23/25 18:14 DC Acetaminophen (Tylenol Tablet) 650 mg Q6HP PRN PO PAIN SCALE 1-3 OR TEMP>100.4 01/23/25 16:15 Acetaminophen/ Hydrocodone Bitart ([place] 5/325MG Tab) 1 tab Q4HP PRN PO MODERATE PAIN (4-6 PAIN SCALE) 01/23/25 16:15 01/23/25 18:19 Clindamycin Phosphate 50 ml @ 50 mls/hr Q8HR IV 01/24/25 06:00 01/24/25 06:03 Meropenem 50 ml @ 17 mls/hr Q8H IV 01/24/25 04:00 01/24/25 03:54 Baclofen (Liorisal Tablet) 5 mg DAILY PO 01/23/25 23:45 01/23/25 23:45 Vital Signs Vital Signs Date Time Temp Pulse Resp B/P (MAP) Pulse Ox O2 Delivery O2 Flow Rate FiO2 01/24/25 06:20 96 18 95 01/24/25 06:20 Nasal Cannula 2.0 01/24/25 06:20 28 01/24/25 05:00 98.3 125/72 (89) 98.3 Labs/Diagnostic Data Labs Test 01/24/25 05:56 01/23/25 17:35 01/23/25 15:58 01/23/25 14:50 Range/Units White Blood Count 17.7 H 4.4-10.8 10^3/uL Red Blood Count 3.28 L 4.5-5.90 10^6/uL Hemoglobin 11.6 #L 13.5-17.5 g/dL Hematocrit 33.5 #L 41.0-53.0 % Mean Corpuscular Volume 102.1 H 80.0-100.0 fL Mean Corpuscular Hemoglobin 35.5 H 28.0-32.0 pg Mean Corpuscular Hemoglobin Concent 34.7 32.0-36.0 g/dL Red Cell Distribution Width 15.2 H 11.8-14.3 % Platelet Count 424 140-450 10^3/uL Mean Platelet Volume 7.6 6.9-10.8 fL Neutrophils (%) (Auto) 90.1 H 37.0-80.0 % Lymphocytes (%) (Auto) 5.1 L 10.0-50.0 % Monocytes (%) (Auto) 4.5 0.0-12.0 % Eosinophils (%) (Auto) 0.0 0.0-7.0 % Basophils (%) (Auto) 0.3 0.0-2.0 % Neutrophils # (Auto) 15.9 H 1.6-8.6 10 ^3/uL Lymphocytes # (Auto) 0.9 0.4-5.4 10 ^3/uL Monocytes # (Auto) 0.8 0-1.3 10 ^3/uL Eosinophils # (Auto) 0 0-0.8 10 ^3/uL Basophils # (Auto) 0.1 0-0.2 10 ^3/uL Nucleated Red Blood Cells 0.0 % Creatinine 0.67 L 0.700-1.30 mg/dL Glomerular Filtration Rate Calc 97 >90 mL/min Random Vancomycin Level 5.4 5-10 ug/mL Urine Color Dark-yellow Yellow Urine Clarity Turbid H Clear Urine pH 5.5 5.0-9.0 Urine Specific [place] 1.020 1.001-1.035 Urine Protein Trace H Negative Urine Ketones Negative Negative Urine Blood 1+ H Negative /uL Urine Nitrite Negative Negative Urine Bilirubin 1+ Negative Urine Urobilinogen Over Negative mg/dL Urine Leukocyte Esterase 1+ Negative /uL Urine RBC 3 0 - 3 /hpf Urine Microscopic WBC 16 H 0-3 /HPF Urine Squamous Epithelial Cells Few <5 /hpf Urine Bacteria Few H None Seen /hpf Urine Mucus Few None Seen Urine Yeast (Budding) Occasional None Seen /hpf Urine Glucose Normal Normal mg/dL Urine Opiates Screen Neg NEGATIVE Urine Fentanyl Screen Neg NEGATIVE Urine Barbiturates Screen Neg NEGATIVE Urine Phencyclidine Screen Neg NEGATIVE Urine Amphetamines Screen Neg NEGATIVE Urine Benzodiazepines Screen Neg NEGATIVE Urine Cocaine Screen Neg NEGATIVE Urine Cannabinoids Screen Pos NEGATIVE Troponin I High Sensitivity 25 </=54 ng/L Lactic Acid Level 2.6 *H 0.4-2.0 mmol/L Test 01/23/25 12:45 01/23/25 12:34 Range/Units Sodium Level 129 L 136-145 mmol/L Potassium Level 4.5 3.5-5.1 mmol/L Chloride Level 91 L 98-107 mmol/L Carbon Dioxide Level 29 20-31 mmol/L Anion Gap 9 5-15 Blood Urea Nitrogen 23 9-23 mg/dL BUN/Creatinine Ratio 24.2 H 10.0-20.0 Serum Glucose 146 H 74-106 mg/dL Hemoglobin A1c 5.5 <5.7 % A1C Calcium Level 8.4 L 8.7-10.4 mg/dL B-Type Natriuretic Peptide 73.15 0-100 pg/mL Triglycerides Level 127 < 150 mg/dL Cholesterol Level 105 < 200 mg/dL LDL Cholesterol 57 < 100 mg/dL HDL Cholesterol 8 L 40-59 mg/dL Blood Gas Specimen Type Arterial Blood Gas Sample Site Left radial Blood Gas Patient Temperature 37.0 Arterial Blood Date Drawn [id number] Arterial Blood pH 7.571 *H 7.350-7.450 Arterial Blood Partial Pressure CO2 29.4 L 35.0-48.0 mmHg Arterial Blood Partial Pressure O2 78.7 L 83.0-108.0 mmHg Arterial Blood HCO3 26.4 21.0-28.0 mmol/L Arterial Blood Oxygen Saturation 96.0 94.0-98.0 % Arterial Blood Base Excess 5.0 H -2.0-3.0 mmol/L Arterial Blood Oxyhemoglobin 94.8 94.0-98.0 % Arterial Blood Carboxyhemoglobin 0.9 0.5-1.5 % Arterial Blood Methemoglobin 0.4 0.0-1.5 % Tyron Test Yes Blood Gas Total Hemoglobin 13.50 13.5-17.5 g/dL Blood Gas Liter Flow 4.00 Blood Gas Modality Nasal cannula FiO2 % 36.0 Blood Gas Critical Value Read Back yes Blood Gas Notified Whom lida Campbell md Blood Gas Notified Time [id number] Blood Gas Notified By Assessment RIGHT ANTERIOR CHEST WALL ABSCESS, DOUBT EMPYEMA NECESSITANS. WILL DO I AND D , POSSIBLE THORACOTOMY TOMORROW, PROCEDURE RISKS AND COMPLICATIONS EXPLAINED IN DETAIL. Plan discussed with: Patient PORFIRIO SHIPMAN MD Jan 24, 2025 09:12
[2025-01-24 09:48] LABS: INR 1.41 (0.9-1.15); Partial Thromboplastin Time 21.3 SEC (24.5-34.5); Prothrombin Time 14.4 sec (9.3-11.8)
[2025-01-24] MEDS ORDERED: ENOXAPARIN SOD 40 MG/0.4 ML SYRINGE SC SCH (10:00)
[2025-01-24] MEDS: ENOXAPARIN SOD 40 MG/0.4 ML SYRINGE SC SCH (10:49)
--- NOTE | 2025-01-24 12:54 | DVHPN2 ---
Subjective The patient is seen and examined at bedside. No complaint today. Reviewed: Care Plan, H&P, Labs, Medications, Previous Orders, Radiology Changes from previous H/P or p: No Changes Eyes: No Pain, No Vision change, No Conjunctivae inflammation, No Eyelid inflammation, No Other, No Redness ENT: No Ear pain, No Ear discharge, No Nose pain, No Nose discharge, No Nose congestion, No Mouth pain, No Mouth swelling, No Throat pain, No Throat swelling, No Other Cardiovascular: Chest Pain; No Palpitations, No Orthopnea, No Paroxysmal Noc. Dyspnea, No Edema, No Lt Headedness, No Other Respiratory: Cough; No Dry; Shortness of breath, SOB with excertion; No Wheezing, No Hemoptysis, No Pleuritic Pain, No Sputum, No Other Gastrointestinal: No Nausea, No Vomiting, No Abdominal Pain, No Diarrhea, No Constipation, No Melena, No Hematochezia, No Other Genitourinary: No Dysuria, No Frequency, No Incontinence, No Hematuria, No Retention, No Other Musculoskeletal: No other; neck pain (Neck pain in the right side), shoulder pain (Shoulder pain), arm pain (Arm pain); No back pain, No hand pain, No leg pain, No foot pain Skin: No Rash, No Lesions, No Jaundice, No Bruising; Other (There is a lump with erythema, warm and tender to palpation in the right upper chest) Objective Vitals Vital Signs Date Time Temp Pulse Resp B/P (MAP) Pulse Ox O2 Delivery O2 Flow Rate FiO2 01/24/25 12:02 107 18 99 01/24/25 09:00 98.1 116/70 (85) 98.1 01/24/25 08:15 Nasal Cannula* 2 28 Intake/Output Intake and Output 01/24/25 07:00 Intake Total 450 ml Balance 450 ml Intake Oral 0 ml IV Total 450 ml General Appearance: Alert, Oriented X3, Cooperative, No acute distress HEENT: Atraumatic, PERRLA, EOMI, Mucous membr. moist/pink Neck: Supple Lungs: Clear to auscultation, Normal air movement Cardiovascular: Regular rate, Normal S1, Normal S2, No murmurs, Gallops, Rubs Abdomen: Normal bowel sounds, Soft Neuro: Cranial nerves 3-12 NL Psych/Mental Status: Mental status NL Medications Current Medications Medications Dose Ordered Sig/Sobeida Route Start Time Stop Time Status Last Admin Dose Admin Albuterol 2.5 mg Q6HR NEB 01/23/25 18:00 01/24/25 11:56 2.5 MG Ipratropium [place] 0.5 mg Q6HR NEB 01/23/25 18:00 01/24/25 11:56 0.5 MG Enoxaparin Sodium 40 mg DAILY SC 01/24/25 10:00 01/24/25 10:49 40 MG Vancomycin HCl 0 ml @ 0 mls/hr UD IV 01/23/25 16:15 Acetaminophen 650 mg Q6HP PRN PO 01/23/25 16:15 Acetaminophen/ Hydrocodone Bitart 1 tab Q4HP PRN PO 01/23/25 16:15 01/23/25 18:19 1 TAB Clindamycin Phosphate 50 ml @ 50 mls/hr Q8HR IV 01/24/25 06:00 01/24/25 06:03 50 MLS/HR Meropenem 50 ml @ 17 mls/hr Q8H IV 01/24/25 04:00 01/24/25 03:54 17 MLS/HR Baclofen 5 mg DAILY PO 01/23/25 23:45 01/24/25 10:49 5 MG Laboratory Results Laboratory Tests 01/23/25 12:45 01/24/25 05:56 Coagulation Test 01/24/25 09:20 Prothrombin Time 14.4 sec (9.3-11.8) H Prothrombin Time INR 1.41 (0.9-1.15) H Activated Partial Thromboplast Time 21.3 SEC (24.5-34.5) L Urinalysis Test 01/23/25 17:35 Urine Color Dark-yellow (Yellow) Urine Clarity Turbid (Clear) H Urine pH 5.5 (5.0-9.0) Urine Specific [place] 1.020 (1.001-1.035) Urine Protein Trace (Negative) H Urine Ketones Negative (Negative) Urine Blood 1+ /uL (Negative) H Urine Nitrite Negative (Negative) Urine Bilirubin 1+ (Negative) Urine Urobilinogen Over mg/dL (Negative) Urine Leukocyte Esterase 1+ /uL (Negative) Urine RBC 3 /hpf (0 - 3) Urine Microscopic WBC 16 /HPF (0-3) H Urine Squamous Epithelial Cells Few /hpf (<5) Urine Bacteria Few /hpf (None Seen) H Urine Mucus Few (None Seen) Urine Yeast (Budding) Occasional /hpf (None Urine Glucose Normal mg/dL (Normal) Labs and/or images reviewed: Labs reviewed by me Assessment/Plan Assessment/Plan Acute Hypoxic respiratory failure likely due to Gram-positive/Gram-negative pneumonia Possible right upper chest cellulitis Sepsis sec to above -CT chest reveal abcess. Patient agree with surgery/evacuation of abcess. Waiting for surgeon to see the patient. -1 L of fluid bolus NS -start IV vancomycin -start IV Zosyn -Ordered CT scan of the chest with contrast -lactic acid was 2.7 -EKG showed sinus tachycardia with no ST segment elevation or depression. -troponins came back normal -currently on 4 L of oxygen through nasal cannula saturating 97% -ordered urine and blood cultures -ordered sputum culture and MRSA nares -respiratory therapy with albuterol and ipratropium med nebs q.6 Primary hypertension -BP currently on lower side -Monitor BP and add meds as needed chronic back pain -continue baclofen 5mg daily Plan discussed with: Patient Date of Service: Jan 24, 2025 Billing Provider: JIMMY MAYS MD Common Visit Codes: [id number] INP/OBS CARE(HIGH) JIMMY MAYS MD Jan 24, 2025 12:54
[2025-01-24] MEDS: VANCOMYCIN 750MG KIT 100 ML IV SCH (18:23)
--- NOTE | 2025-01-24 22:53 | DVHSR ---
APPROVED REPORT EXAM: LIMITED Two-dimensional and M-mode echocardiogram with Doppler and color Doppler. Blood Pressure: 125/72 mmHg INDICATION chf? RISK FACTORS Height: 5'9, Weight: 154 DIMENSIONS LVDd (3.8-5.7cm)LA (2D)3.1 (1.9-4.0cm)Aortic Root (2.0-3.7cm) EF (%) 55.0 (55-70%)Rt. Atrium3.7 (1.9-4.0cm)Asc. Aorta cm Mitral Valve MitralMitral Stenosis E wave0.49m/sMV Mean GR.mmHg A wave0.66m/sMV Peak GR.mmHg E/A ratio0.72D MVAcm2 DECEL [id number] 1/2 Timems Aortic Valve Aortic ValveAortic Stenosis V11.00m/[place] Mean GR.4mmHg V21.33m/[place] Peak GR.7mmHg LVOT Diameter2.0 (1.8-2.4cm)Doppler AVA2.36cm2 Tricuspid Valve TR Velocity2.02m/s [id number] Other Information Quality : Technically LimitedRhythm : Technically limited study due to body habitus.patient position. Conclusion MILD LVH AND MILD LV DIASTOLIC DYSFUNCTION LV EF IS 65% CALCIFIED AORTIC LEAFLETS AORTIC SCLEROSIS BUT NO STENOSIS NORMAL MV,TV AND PV NO EFFUSION NORMAL RV FUNCTION
[2025-01-25] VITALS (16 sets, daily range): BP systolic 100–144; BP diastolic 66–73; PULSE 60–107; RESP 14–18; TEMP 97–98.1; O2SAT 90–100
[2025-01-25] MEDS: IPRATROPIUM BROM 0.5 MG/2.5ML INH SOL ONE (06:01)
[2025-01-25] MEDS: ALBUTEROL SULF 2.5 MG/0.5ML(0.5%) NEB SOLN NEB SCH (06:02)
[2025-01-25] MEDS: IPRATROPIUM BROM 0.5 MG/2.5ML INH SOL NEB SCH (06:02)
[2025-01-25] MEDS: ALBUTEROL SULF 2.5 MG/0.5ML(0.5%) NEB SOLN ONE (06:06)
[2025-01-25] MEDS ORDERED: LIDOCAINE 2% (LOCAL ANESTH.) PF 5ml SDV ONE (07:05)
[2025-01-25] MEDS ORDERED: LIDOCAINE HCL 2% TOP JELLY 5ML TOP ONE (07:05)
[2025-01-25] MEDS ORDERED: DexAMETHasone SOD PHOS 10MG/1ML VIAL INJ ONE (07:05)
[2025-01-25] MEDS ORDERED: KETOROLAC TROMETH 30 MG/ML 1ML VIAL ONE (07:05)
[2025-01-25] MEDS ORDERED: ONDANSETRON HCL 4 MG/2 ML VIAL ONE (07:05)
[2025-01-25] MEDS ORDERED: SUGAMMADEX 200mg/2ml Vial (100MG/ML) IV ONE (07:05)
[2025-01-25] MEDS ORDERED: ROCURONIUM 10MG/ML 10ML VIAL IV ONE (07:06)
[2025-01-25] MEDS ORDERED: PROPOFOL 10 MG/ML 20 ML IV ONE (07:06)
[2025-01-25] MEDS ORDERED: GLYCOPYRROLATE 0.2 MG/ML 1ML VIAL ONE (07:06)
[2025-01-25] MEDS ORDERED: KETAMINE 50mg/ML 1ml syringe ONE (07:08)
[2025-01-25] MEDS ORDERED: fentaNYL CITRATE 100 MCG/2 ML VL ONE (07:08)
[2025-01-25] MEDS: LIDOCAINE W/ EPINEPHRINE 1% 20ML VIAL ONE (07:09)
[2025-01-25] MEDS ORDERED: HYDROmorphone HCL 2 MG/ML VL/or syr IV PRN (08:15)
[2025-01-25] MEDS ORDERED: NALOXONE HCL 0.4 MG/ML VIAL IV PRN (08:15)
[2025-01-25] MEDS ORDERED: FLUMAZENIL 0.1 MG/ML INJ 10ML MDV IV PRN (08:15)
[2025-01-25] MEDS ORDERED: fentaNYL CITRATE 100 MCG/2 ML VL IV PRN (08:15)
[2025-01-25] MEDS ORDERED: ONDANSETRON HCL 4 MG/2 ML VIAL IV PRN (08:15)
[2025-01-25] MEDS ORDERED: hydrALAZINE HCL 20 MG/ML VL IV PRN (08:15)
[2025-01-25] MEDS ORDERED: ePHEDrine SULFATE 50 MG/ML AMP IV PRN (08:15)
--- NOTE | 2025-01-25 08:33 | DVHOP ---
DATE OF SURGERY: 01/25/2025 PREOPERATIVE DIAGNOSIS: Right subclavicular abscess. POSTOPERATIVE DIAGNOSIS: Right subclavicular abscess. SURGEON: Paul Yang MD MANAGER BANKING: Melo Jane ANESTHESIA: General. ANESTHESIOLOGIST: Louis Leiva MD PROCEDURE: Incision and drainage of right subclavicular abscess. DESCRIPTION OF PROCEDURE: Under adequate anesthesia with the patient's skin prepped and draped, an incision was made lateral to the large accumulation of palpable pulse underneath the patient's skin in the subclavicular fossa. This was drained, digitally explored. There did not appear to be a communication with the chest cavity. The cavity of the abscess was completely emptied of purulent material, which was submitted for cultures and sensitivities. The cavity was then irrigated by means of a Dillan Gonzalez drain, which was inserted and left indwelling and was secured with a 2-0 nylon suture for postoperative irrigation. The patient remained in unchanged clinical condition at termination of procedure, and left the operating room following an accurate needle and sponge count. Paul Yang MD PF/MAYUR TID: [id number] RECEIPT: [id number]
[2025-01-25] MEDS: BUPIVACAINE 0.25% INJ 50ML VIAL ONE (11:26)
[2025-01-25] MEDS: ceFAZolin 1GM VL ONE (11:26)
--- NOTE | 2025-01-25 12:26 | DVHPNRES ---
Progress Note Date Seen: Jan 25, 2025 Resident Creating Document: EDWARD WU RESIDENT Has the PT tested + for MRSA If YES, has PT been informed?: No Medical Necessity Reason Pt with a Central, PICC or Fol: No Subjective Review of Systems This is a 74-year-old male with past medical history of hypertension and chronic back pain. Patient presented to the ED due to chronic cough associated with shortness of breaths and right upper chest tenderness. Patient states that the cough started two weeks ago initially was not associated with tenderness for shortness of breaths. Patient states that after a couple of days of chronic cough he started developing right upper chest tenderness associated with shortness of breaths and sputum production that was yellowish in color. Patient also states that five days ago he started developing a lump in the right upper chest which is erythematous, warmth to palpation and very tender to soft touch as well. Patient reports decreasing appetite and has lost a couple of lb in the last week but when asked about weight loss in the past six months the patient denied. The patient also reported recent night sweats but denied fever or chills. [place] labs [place] [address] with unremarkable BNP. Lactic acid was elevated at 2.7, troponins came back negative, EKG was showing sinus tachycardia with no ST segment abnormalities. Patient was initially placed on 4 L of oxygen through nasal cannula and was started on IV antibiotics and steroids. Initial chest x-ray was ordered showing a right upper lung opacity. Upon my examination, there is a erythematous elevated lump located in the right upper chest the level of the clavicle that is erythematous and warm and tender to palpation. We will order a CT scan of the chest without contrast to determine if the opacity seen in the x-ray is actually inside or outside the lung. Patient seen and examined at bedside. Patient is alert and oriented in person, place and time. Patient is currently status post incision and drainage of the right upper chest abscess with a DOTTIE placement which is currently draining 24 cc of serosanguineous fluid, since procedure was performed. We will continue the patient on IV vancomycin, meropenem, clindamycin. We will order incentive spirometry for the patient and physical therapy. Patient states that still has right upper chest pain but has improved significantly compared to admission. Patient denies fever/chills, shortness of breath, abdominal tenderness or any other symptoms at this time. Patient is currently on 2 L of oxygen through nasal cannula. ROS Constitutional: Denies weight loss, fever and chills. HEENT: Denies changes in vision and hearing. Respiratory: Denies shortness of breath and cough Cardiovascular: Reports right upper chest discomfort and pain to palpation which has improved compared to admission. Denies palpitations. GI: Denies abdominal pain, nausea, vomiting and diarrhea. : Denies dysuria and urinary frequency. Musculoskeletal: Denies myalgias and joint pain Skin: Denies rash and pruritus. Neurological: Denies dizziness, headache, vision or hearing problems Objective vital signs Vital Sign Date Time Temp Pulse Resp B/P (MAP) Pulse Ox O2 Delivery O2 Flow Rate FiO2 01/25/25 11:31 101 16 100 01/25/25 11:23 Nasal Cannula* 2 28 01/25/25 09:05 131/75 (93) 01/25/25 08:04 98.9 98.9 Total Intake and Output 01/24/25 01/24/25 01/25/25 15:00 23:00 07:00 Intake Total 100 ml 450 ml 155 ml Balance 100 ml 450 ml 155 ml medications Current Medications Medications Dose Ordered Sig/Sobeida Route Start Time Stop Time Status Last Admin Dose Admin Vancomycin HCl 0 ml @ 0 mls/hr UD IV 01/23/25 16:15 Acetaminophen 650 mg Q6HP PRN PO 01/23/25 16:15 Acetaminophen/ Hydrocodone Bitart 1 tab Q4HP PRN PO 01/23/25 16:15 01/23/25 18:19 1 TAB Clindamycin Phosphate 50 ml @ 50 mls/hr Q8HR IV 01/24/25 06:00 01/25/25 05:25 50 MLS/HR Meropenem 50 ml @ 17 mls/hr Q8H IV 01/24/25 04:00 01/25/25 11:58 17 MLS/HR Baclofen 5 mg DAILY PO 01/23/25 23:45 01/25/25 10:11 5 MG Vancomycin HCl 100 ml @ 100 mls/hr Q12H IV 01/24/25 17:00 01/25/25 05:47 100 MLS/HR Albuterol 2.5 mg Q6HR NEB 01/25/25 06:00 01/25/25 11:23 2.5 MG Ipratropium [place] 0.5 mg Q6HR NEB 01/25/25 06:00 01/25/25 11:23 0.5 MG Examination Physical Examination General: Patient alert and oriented in person, place and time. Patient following commands. HEENT: Normocephalic, atraumatic, moist mucous membranes Respiratory/pulmonary: Clear lungs bilaterally, no associated crackles or wheezes. on 2Lof O2 through [place] Cardiovascular: Normal heart sounds S1 and S2 with no associated murmurs. S/P Incision and drainage of abscess. There is tenderness to palpation on the right upper chest with a DOTTIE drain on place draining 24cc of serosanguineous fluid. There is coverage with clean gauze. Abdomen: Abdomen nondistended, there is no pain to palpation in any of the abdominal quadrants, no palpable masses. Extremities: There is no peripheral edema present at the lower extremities. Peripheral Pulses: 3+ Radial (R). 3+ Radial (L). 3+ Dorsalis pedis (R). 3+ Dorsalis pedis(L) Skin: No rashes or pruritus, there is no sacral edema present at this time. Neurological: Intact cranial nerves with no focal neurologic deficits laboratory and microbiology Laboratory Tests 01/24/25 05:56 01/23/25 12:45 Test 01/23/25 12:45 Range/Units Serum Glucose 146 H 74-106 mg/dL Microbiology Date/Time Source Procedure Growth Status 01/23/25 12:45 Blood Blood Culture - Preliminary NO GROWTH AFTER 24 HOURS OF INCUBATION. Resulted Problem List/Assessment/Plan Problem List/Assessment/Plan Assessment/Plan Acute Hypoxic respiratory failure likely due to Gram-positive/Gram-negative pneumonia Acute Right upper chest cellulitis with Abscess Ruled out ACS Sepsis sec to above -we will chest x-ray is showing a right upper lobe opacity, not clear if it is actually inside the lung or it could be an abscess outside the lung. -Continue IV vancomycin -Continue Clindamycin -Continue Meropenem -Ordered CT scan of the chest with contrast which showed soft tissue edema of the right chest wall with complex multiloculated fluid collection with multiple foci of air extending from the right lower neck soft tissue to the right anterior upper chest musculature. -lactic acid was 2.7 -EKG showed sinus tachycardia with no ST segment elevation or depression. -troponins came back normal -echo showed an LVEF of 65% with normal cardiac valves and no pericardial effusion. -currently on 2 L of oxygen through nasal cannula saturating 97% -ordered urine and blood cultures, blood cultures showing no growth at this time. -ordered sputum culture and MRSA nares -respiratory therapy with albuterol and ipratropium med nebs q.6 -surgery on board, patient refused surgery. -surgery perform incision and drainage of right upper chest abscess and placement of a DOTTIE drainage which is draining approximately 24 cc since procedure. Primary hypertension -BP currently on lower side -Monitor BP and add meds as needed chronic back pain -continue baclofen 5mg daily Goals of care discussed with the patient and son at bedside for >30min, FULL CODE Plan discussed with Dr. Simons Plan discussed with: Patient My Orders My Orders Orders - EDWARD WU Procedure Category Date Status Time Vancomycin 750mg Kit PHA 01/24/25 In Process (Vancomycin Hcl) 17:00 Creatinine LAB 01/25/25 Logged 16:00 Vancomycin,Trough LAB 01/25/25 Logged 16:00 Vancomycin Per PRINCE 01/25/25 In Process Pharmacy Protoc 17:00 Albuterol Medneb PHA 01/25/25 In Process (Ventolin Medneb) 06:00 Ipratropium Medneb PHA 01/25/25 In Process (Atrovent Medneb) 06:00 Complete Blood Count LAB 01/25/25 Logged 07:15 Basic Metabolic Panel LAB 01/25/25 Logged 07:15 Lactic Acid W/ Reflex LAB 01/25/25 Logged Order 07:15 Date of Service: Jan 25, 2025 Billing Provider: JIMMY SIMONS MD Common Visit Codes: [id number] INP/OBS CARE(HIGH) EDWARD WU RESIDENT Jan 25, 2025 12:26 JIMMY SIMONS MD Jan 25, 2025 22:02
[2025-01-25 13:42] LABS: Basophils # (auto) 0 10 ^3/uL (0-0.2); Basophils % (auto) 0.3 % (0.0-2.0); Eosinophils # (auto) 0 10 ^3/uL (0-0.8); Monocytes # (auto) 0.4 10 ^3/uL (0-1.3)
[2025-01-25 13:43] LABS: Hematocrit 30.2 % (41.0-53.0); Hemoglobin 10.7 g/dL (13.5-17.5); Lymphocytes # (auto) 0.5 10 ^3/uL (0.4-5.4); Lymphocytes % (auto) 3.5 % (10.0-50.0); Mean Corpuscular Hemoglobin 35.3 pg (28.0-32.0); Mean Corpuscular Hgb Conc. 35.3 g/dL (32.0-36.0); Mean Corpuscular Volume 100.1 fL (80.0-100.0); Monocytes % (auto) 2.9 % (0.0-12.0); Neutrophils # (auto) 12.6 10 ^3/uL (1.6-8.6); Neutrophils % (auto) 93.3 % (37.0-80.0); Platelet Count (auto) 436 10^3/uL (140-450); Red Blood Cells 3.02 10^6/uL (4.5-5.90); Red Cell Distribution Width 15.1 % (11.8-14.3); White Blood Cell 13.5 10^3/uL (4.4-10.8)
[2025-01-25 13:46] LABS: Chloride 98 mmol/L (98-107); Potassium 3.9 mmol/L (3.5-5.1)
[2025-01-25 13:47] LABS: Anion Gap 5 (5-15); Carbon Dioxide 30 mmol/L (20-31)
[2025-01-25 13:52] LABS: BUN/Creatinine Ratio 26.6 (10.0-20.0); Blood Urea Nitrogen 21 mg/dL (9-23)
[2025-01-25 13:53] LABS: Calcium 8.1 mg/dL (8.7-10.4); Glucose 171 mg/dL (74-106); Sodium 133 mmol/L (136-145)
[2025-01-25] MEDS: VANCOMYCIN 750MG KIT 100 ML IV SCH (17:37)
[2025-01-26] VITALS (14 sets, daily range): BP systolic 115–142; BP diastolic 67–88; PULSE 65–102; RESP 14–20; TEMP 97.6–99; O2SAT 91–100
[2025-01-26 07:50] LABS: Basophils # (auto) 0 10 ^3/uL (0-0.2); Eosinophils # (auto) 0 10 ^3/uL (0-0.8); White Blood Cell 10.1 10^3/uL (4.4-10.8)
[2025-01-26 07:52] LABS: Basophils % (auto) 0.2 % (0.0-2.0); Hematocrit 32.8 % (41.0-53.0); Hemoglobin 11.8 g/dL (13.5-17.5); Lymphocytes # (auto) 1.2 10 ^3/uL (0.4-5.4); Lymphocytes % (auto) 12.3 % (10.0-50.0); Mean Corpuscular Volume 99.9 fL (80.0-100.0); Monocytes # (auto) 0.6 10 ^3/uL (0-1.3); Monocytes % (auto) 5.6 % (0.0-12.0); Neutrophils # (auto) 8.2 10 ^3/uL (1.6-8.6); Neutrophils % (auto) 81.9 % (37.0-80.0); Platelet Count (auto) 448 10^3/uL (140-450); Red Blood Cells 3.28 10^6/uL (4.5-5.90); Red Cell Distribution Width 14.9 % (11.8-14.3)
[2025-01-26 08:04] LABS: Anion Gap 6 (5-15); Carbon Dioxide 30 mmol/L (20-31); Chloride 98 mmol/L (98-107); Potassium 3.7 mmol/L (3.5-5.1)
[2025-01-26 08:09] LABS: Glucose 104 mg/dL (74-106)
[2025-01-26 08:10] LABS: BUN/Creatinine Ratio 25.4 (10.0-20.0); Blood Urea Nitrogen 15 mg/dL (9-23); Calcium 8.6 mg/dL (8.7-10.4); Sodium 134 mmol/L (136-145)
--- NOTE | 2025-01-26 09:33 | DVHPNRES ---
Progress Note Date Seen: Jan 26, 2025 Resident Creating Document: EDWARD WU RESIDENT Has the PT tested + for MRSA If YES, has PT been informed?: No Medical Necessity Reason Pt with a Central, PICC or Fol: No Subjective Review of Systems This is a 74-year-old male with past medical history of hypertension and chronic back pain. Patient presented to the ED due to chronic cough associated with shortness of breaths and right upper chest tenderness. Patient states that the cough started two weeks ago initially was not associated with tenderness for shortness of breaths. Patient states that after a couple of days of chronic cough he started developing right upper chest tenderness associated with shortness of breaths and sputum production that was yellowish in color. Patient also states that five days ago he started developing a lump in the right upper chest which is erythematous, warmth to palpation and very tender to soft touch as well. Patient reports decreasing appetite and has lost a couple of lb in the last week but when asked about weight loss in the past six months the patient denied. The patient also reported recent night sweats but denied fever or chills. Initial labs [place] [address] with unremarkable BNP. Lactic acid was elevated at 2.7, troponins came back negative, EKG was showing sinus tachycardia with no ST segment abnormalities. Patient was initially placed on 4 L of oxygen through nasal cannula and was started on IV antibiotics and steroids. Initial chest x-ray was ordered showing a right upper lung opacity. Upon my examination, there is a erythematous elevated lump located in the right upper chest the level of the clavicle that is erythematous and warm and tender to palpation. We will order a CT scan of the chest without contrast to determine if the opacity seen in the x-ray is actually inside or outside the lung. Patient seen and examined at bedside. Patient had no events overnight, denies fever/chills, chest pain, shortness of breath or any other symptoms at this time. Patient is currently on 2 L of oxygen through nasal cannula but states that has no shortness of breaths at this time. Patient has a DOTTIE drain in place draining currently 50 cc in the last 12 hours which is serosanguineous in appearance. We will continue at this time on IV vanco, clinda, meropenem. Upon my examination, there is very mild tenderness to palpation in the right upper chest were cellulitis/abscess was located before. There is no limp at this time. Patient status feeling better after incision and drainage. ROS Constitutional: Denies weight loss, fever and chills. HEENT: Denies changes in vision and hearing. Respiratory: Denies shortness of breath and cough Cardiovascular: Denies chest discomfort or palpitations GI: Denies abdominal pain, nausea, vomiting and diarrhea. : Denies dysuria and urinary frequency. Musculoskeletal: Denies myalgias and joint pain Skin: Denies rash and pruritus. Neurological: Denies dizziness, headache, vision or hearing problems Objective vital signs Vital Sign Date Time Temp Pulse Resp B/P (MAP) Pulse Ox O2 Delivery O2 Flow Rate FiO2 01/26/25 06:10 92 17 100 01/26/25 06:04 Nasal Cannula 2.0 01/26/25 06:04 28 01/26/25 05:00 97.8 142/69 (93) 97.8 Total Intake and Output 01/25/25 01/25/25 01/26/25 15:00 23:00 07:00 Intake Total 50 ml 250 ml 1050 ml Output Total 50 ml 50 ml 450 ml Balance 0 ml 200 ml 600 ml medications Current Medications Medications Dose Ordered Sig/Sobeida Route Start Time Stop Time Status Last Admin Dose Admin Vancomycin HCl 0 ml @ 0 mls/hr UD IV 01/23/25 16:15 Acetaminophen 650 mg Q6HP PRN PO 01/23/25 16:15 Acetaminophen/ Hydrocodone Bitart 1 tab Q4HP PRN PO 01/23/25 16:15 01/23/25 18:19 1 TAB Clindamycin Phosphate 50 ml @ 50 mls/hr Q8HR IV 01/24/25 06:00 01/26/25 06:28 50 MLS/HR Meropenem 50 ml @ 17 mls/hr Q8H IV 01/24/25 04:00 01/26/25 04:25 17 MLS/HR Baclofen 5 mg DAILY PO 01/23/25 23:45 01/26/25 09:08 5 MG Albuterol 2.5 mg Q6HR NEB 01/25/25 06:00 01/26/25 06:04 2.5 MG Ipratropium [place] 0.5 mg Q6HR NEB 01/25/25 06:00 01/26/25 06:04 0.5 MG Vancomycin HCl 100 ml @ 100 mls/hr Q8H IV 01/25/25 17:00 01/26/25 09:07 100 MLS/HR Examination Physical Examination General: Patient alert and oriented in person, place and time. Patient following commands. HEENT: Normocephalic, atraumatic, moist mucous membranes Respiratory/pulmonary: Clear lungs bilaterally, no associated crackles or wheezes. on 2Lof O2 through [place] Cardiovascular: Normal heart sounds S1 and S2 with no associated murmurs. S/P Incision and drainage of abscess. There is very mild tenderness to palpation on the right upper chest with a DOTTIE drain on place draining 50cc of serosanguineous fluid in last 12hours. There is coverage with clean gauze. Abdomen: Abdomen nondistended, there is no pain to palpation in any of the abdominal quadrants, no palpable masses. Extremities: There is no peripheral edema present at the lower extremities. Peripheral Pulses: 3+ Radial (R). 3+ Radial (L). 3+ Dorsalis pedis (R). 3+ Dorsalis pedis(L) Skin: No rashes or pruritus, there is no sacral edema present at this time. Neurological: Intact cranial nerves with no focal neurologic deficits laboratory and microbiology Laboratory Tests 01/26/25 06:55 Test 01/26/25 06:55 Range/Units Serum Glucose 104 74-106 mg/dL Microbiology Date/Time Source Procedure Growth Status 01/23/25 17:35 Voided Urine Urine Culture - Preliminary Resulted 01/23/25 12:45 Blood Blood Culture - Preliminary NO GROWTH AFTER 48 HOURS OF INCUBATION. Resulted Problem List/Assessment/Plan Problem List/Assessment/Plan Assessment/Plan Acute Hypoxic respiratory failure likely due to Gram-positive/Gram-negative pneumonia Acute Right upper chest cellulitis with Abscess Ruled out ACS Sepsis sec to above -we will chest x-ray is showing a right upper lobe opacity, not clear if it is actually inside the lung or it could be an abscess outside the lung. -Continue IV vancomycin -Continue Clindamycin -Continue Meropenem -Ordered CT scan of the chest with contrast which showed soft tissue edema of the right chest wall with complex multiloculated fluid collection with multiple foci of air extending from the right lower neck soft tissue to the right anterior upper chest musculature. -lactic acid was 2.7 -EKG showed sinus tachycardia with no ST segment elevation or depression. -troponins came back normal -echo showed an LVEF of 65% with normal cardiac valves and no pericardial effusion. -currently on 2 L of oxygen through nasal cannula saturating 97% -ordered urine and blood cultures, blood cultures showing no growth at this time. -ordered sputum culture and MRSA nares -respiratory therapy with albuterol and ipratropium med nebs q.6 -surgery on board, patient refused surgery. -surgery perform incision and drainage of right upper chest abscess and placement of a DOTTIE drainage which is draining approximately 50 cc since procedure. -There is no lump at this time, erythema and inflammation has decreased considerably after I&D. Primary hypertension -BP currently on lower side -Monitor BP and add meds as needed chronic back pain -continue baclofen 5mg daily Goals of care discussed with the patient and son at bedside for >30min, FULL CODE Plan discussed with Dr. Ornelas Plan discussed with: Patient My Orders My Orders Orders - EDWARD WU Procedure Category Date Status Time Incentive Spirometry ORDERS 01/25/25 Transmitted 12:11 Pt Request For Service PT 01/25/25 Logged 12:11 Vancomycin 750mg Kit PHA 01/25/25 In Process (Vancomycin Hcl) 17:00 Date of Service: Jan 26, 2025 Billing Provider: KEIKO ORNELAS MD Common Visit Codes: [id number] INP/OBS CARE(HIGH) EDWARD WU RESIDENT Jan 26, 2025 09:33 KEIKO ORNELAS MD Jan 26, 2025 16:49
--- NOTE | 2025-01-26 11:51 | DVHPN2 ---
Subjective Date Seen: Jan 26, 2025 Post op day Post op day: 1 Patient reports: No new complaints Nursing reports: No new complaints General: Normal HNT: Normal Cardiovascular: Normal Respiratory: Normal Gastrointestinal: Normal Genitourinary: Normal Musculoskeletal: Normal Neurological: Normal Objective Vitals Vital Sign Date Time Temp Pulse Resp B/P (MAP) Pulse Ox O2 Delivery O2 Flow Rate FiO2 01/26/25 11:35 94 18 100 01/26/25 11:29 Nasal Cannula 2.0 01/26/25 11:29 28 01/26/25 09:00 98.4 125/67 (86) 98.4 Total Intake and Output 01/25/25 01/25/25 01/26/25 15:00 23:00 07:00 Intake Total 50 ml 250 ml 1050 ml Output Total 50 ml 50 ml 450 ml Balance 0 ml 200 ml 600 ml Medications Current Medications Medications Dose Ordered Sig/Sobeida Route Start Time Stop Time Status Last Admin Dose Admin Vancomycin HCl 0 ml @ 0 mls/hr UD IV 01/23/25 16:15 Acetaminophen 650 mg Q6HP PRN PO 01/23/25 16:15 Acetaminophen/ Hydrocodone Bitart 1 tab Q4HP PRN PO 01/23/25 16:15 01/26/25 10:19 1 TAB Clindamycin Phosphate 50 ml @ 50 mls/hr Q8HR IV 01/24/25 06:00 01/26/25 06:28 50 MLS/HR Meropenem 50 ml @ 17 mls/hr Q8H IV 01/24/25 04:00 01/26/25 04:25 17 MLS/HR Baclofen 5 mg DAILY PO 01/23/25 23:45 01/26/25 09:08 5 MG Albuterol 2.5 mg Q6HR NEB 01/25/25 06:00 01/26/25 11:29 2.5 MG Ipratropium [place] 0.5 mg Q6HR NEB 01/25/25 06:00 01/26/25 11:29 0.5 MG Vancomycin HCl 100 ml @ 100 mls/hr Q8H IV 01/25/25 17:00 01/26/25 09:07 100 MLS/HR General: Normal, Well developed Head/Eyes: Normal ENT: Normal Neck: Normal, Supple Musculoskeletal: Normal Extremities: Normal, No clubbing Skin: Normal Labs and Microbiology Laboratory Tests 01/26/25 06:55 Test 01/26/25 06:55 Range/Units Serum Glucose 104 74-106 mg/dL Ass/Plan Labs and/or images reviewed: Labs reviewed by me Problem List Assessment/Plan Acute Hypoxic respiratory failure likely due to Gram-positive/Gram-negative pneumonia Acute Right upper chest cellulitis with Abscess Ruled out ACS Sepsis sec to above -we will chest x-ray is showing a right upper lobe opacity, not clear if it is actually inside the lung or it could be an abscess outside the lung. -Continue IV vancomycin -Continue Clindamycin -Continue Meropenem -Ordered CT scan of the chest with contrast which showed soft tissue edema of the right chest wall with complex multiloculated fluid collection with multiple foci of air extending from the right lower neck soft tissue to the right anterior upper chest musculature. -lactic acid was 2.7 -EKG showed sinus tachycardia with no ST segment elevation or depression. -troponins came back normal -echo showed an LVEF of 65% with normal cardiac valves and no pericardial effusion. -currently on 2 L of oxygen through nasal cannula saturating 97% -ordered urine and blood cultures, blood cultures showing no growth at this time. -ordered sputum culture and MRSA nares -respiratory therapy with albuterol and ipratropium med nebs q.6 -surgery on board, patient refused surgery. -surgery perform incision and drainage of right upper chest abscess and placement of a DOTTIE drainage which is draining approximately 50 cc since procedure. -There is no lump at this time, erythema and inflammation has decreased considerably after I&D. Primary hypertension -BP currently on lower side -Monitor BP and add meds as needed chronic back pain -continue baclofen 5mg daily Goals of care discussed with the patient and son at bedside for >30min, FULL CODE Plan discussed with Dr. Ornelas Assessment/Plan status post incision and drainage of right upper chest abscess area non tender to palpation , per patient no more pain DOTTIE drain with purulent drainage Plan: continue IV antibiotics irrigate drain 3 times a day with sterile saline Prognosis: Excellent Plan discussed with patient, Dr. white Visit Coding Surgery Date of Service if different f: Jan 26, 2025 Billing Provider: PORFIRIO WHITE MD Surgery Visit Codes: [id number] INP/OBS CARE(HIGH) KARTHIK BURDICK GENERAL OFFICE CLERK Jan 26, 2025 11:51
[2025-01-27] VITALS (13 sets, daily range): BP systolic 114–135; BP diastolic 67–76; PULSE 89–107; RESP 16–20; TEMP 97.7–99.6; O2SAT 93–100
--- NOTE | 2025-01-27 05:40 | DVH ---
Procedure: CT CHEST WITH CONTRAST Reason for study/Clinical History: s/p drainage of right upper chest abscess Comparison Study: Chest CT performed on 01/23/2025 Exam Date: 01/27/2025 03:23 AM Radiation Dose Information: CT Dose: CTDI volume is 14.42 mGy. Dose-length product is 581.0 mGy*cm Contrast: Type of contrast: Omnipaque 300 Contrast inject: 100 cc Contrast wasted:0 TECHNIQUE: CT of the chest was performed with intravenous contrast from the base of the neck to the u pper abdomen. Coronal and sagittal reformatted images provided FINDINGS: Chest wall: Interval decrease in size of right anterior chest wall fluid collection containing gas wh ich now measures approximately 8.1 by 2.8 cm previously measuring 8.5 by 4.1 cm. The peripherally en hancing fluid collection is again noted to extend and abut the right thyroid and thyroid cartilage cr anially and extend caudally to the level of the 1st and 2nd ribs. Interval placement of a surgical dr linda in the center of the collection in the anterior right Lower Neck: Right lobe of the thyroid gland is compressed by right deep soft tissue fluid collection. Aorta and Vasculature: Normal caliber of thoracic aorta. No aneurysm or dissection. Lymph Nodes: Multiple subcentimeter mediastinal lymph nodes. Mediastinum: Heart size is normal. There is no pericardial effusion. The esophagus is unremarkable. C entral airways are patent Lungs: Bilateral lower lobe compressive atelectasis. Moderate centrilobular emphysema. Pleura: Bilateral small pleural effusions. No pneumothorax. Musculoskeletal: No acute osseous abnormality. Upper abdomen: Limited portions of the upper abdomen are unremarkable. IMPRESSION: 1. Persistent although decreased multiloculated fluid collection in the anterior right chest wall wit h drainage catheter in situ. 2. Emphysema (severe). Bilateral lower lobe compressive atelectasis. Small bilateral pleural effusion s have developed since the prior study from 01/23/2025. All CT scans at this medical facility are performed using dose modulation techniques as appropriate t o a performed exam including the following: Automated exposure control was utilized; adjustment of th e MA and/or KV according to patient size; and use of iterative reconstruction technique.
[2025-01-27 06:34] LABS: Basophils # (auto) 0 10 ^3/uL (0-0.2); Basophils % (auto) 0.2 % (0.0-2.0); Eosinophils # (auto) 0 10 ^3/uL (0-0.8); Lymphocytes # (auto) 0.9 10 ^3/uL (0.4-5.4); White Blood Cell 8.5 10^3/uL (4.4-10.8)
[2025-01-27 06:37] LABS: Hematocrit 32.1 % (41.0-53.0); Hemoglobin 11.3 g/dL (13.5-17.5); Lymphocytes % (auto) 10.7 % (10.0-50.0); Mean Corpuscular Hemoglobin 35.4 pg (28.0-32.0); Mean Corpuscular Hgb Conc. 35.1 g/dL (32.0-36.0); Mean Corpuscular Volume 100.8 fL (80.0-100.0); Monocytes # (auto) 0.4 10 ^3/uL (0-1.3); Monocytes % (auto) 5.2 % (0.0-12.0); Neutrophils # (auto) 7.1 10 ^3/uL (1.6-8.6); Neutrophils % (auto) 83.9 % (37.0-80.0); Platelet Count (auto) 500 10^3/uL (140-450); Red Blood Cells 3.19 10^6/uL (4.5-5.90); Red Cell Distribution Width 14.8 % (11.8-14.3)
[2025-01-27 06:52] LABS: Alkaline Phosphatase 73 U/L (46-116); Anion Gap 5 (5-15); Blood Urea Nitrogen 12 mg/dL (9-23); Chloride 99 mmol/L (98-107); Glucose 99 mg/dL (74-106); Potassium 4.1 mmol/L (3.5-5.1)
[2025-01-27 07:02] LABS: Alanine Aminotransferase 49 U/L (7-40); Albumin 2.7 g/dL (3.2-4.8); Aspartate Aminotransferase 50 U/L (13-40); Calcium 8.4 mg/dL (8.7-10.4); Carbon Dioxide 31 mmol/L (20-31); Sodium 135 mmol/L (136-145); Total Protein 5.4 g/dL (5.7-8.2)
--- NOTE | 2025-01-27 07:22 | DVH ---
EXAM: XR Chest, 1 View CLINICAL INDICATION: reeval TECHNIQUE: Frontal view of the chest. COMPARISON: XY CHEST PORTABLE on DOS: 01/23/25 FINDINGS: LUNGS AND PLEURAL SPACES: Airspace disease of the right upper lung field could be pneumonia. Under lying mass can not be excluded. No pneumothorax. HEART: Unremarkable. No cardiomegaly. MEDIASTINUM: Unremarkable. Normal mediastinal contour. BONES/JOINTS: Unremarkable. No acute fracture. OTHER FINDINGS: . IMPRESSION: Airspace disease of the right upper lung field could be pneumonia. Underlying mass can not be exclu ded.
--- NOTE | 2025-01-27 10:13 | DVHPN2 ---
Progress Note Date Seen: Jan 27, 2025 Has the PT tested + for MRSA If YES, has PT been informed?: No Medical Necessity Reason Pt with a Central, PICC or Fol: No Objective vital signs Vital Sign Date Time Temp Pulse Resp B/P (MAP) Pulse Ox O2 Delivery O2 Flow Rate FiO2 01/27/25 07:00 98 18 100 01/27/25 06:53 Room Air 0.0 01/27/25 06:53 21 01/27/25 05:00 98.5 135/76 (95) 98.5 Total Intake and Output 01/26/25 01/26/25 01/27/25 15:00 23:00 07:00 Intake Total 150 ml 630 ml 500 ml Output Total 350 ml 990 ml Balance 150 ml 280 ml -490 ml medications Current Medications Medications Dose Ordered Sig/Sobeida Route Start Time Stop Time Status Last Admin Dose Admin Vancomycin HCl 0 ml @ 0 mls/hr UD IV 01/23/25 16:15 Acetaminophen 650 mg Q6HP PRN PO 01/23/25 16:15 Acetaminophen/ Hydrocodone Bitart 1 tab Q4HP PRN PO 01/23/25 16:15 01/27/25 08:11 1 TAB Clindamycin Phosphate 50 ml @ 50 mls/hr Q8HR IV 01/24/25 06:00 01/27/25 06:38 50 MLS/HR Meropenem 50 ml @ 17 mls/hr Q8H IV 01/24/25 04:00 01/27/25 03:43 17 MLS/HR Baclofen 5 mg DAILY PO 01/23/25 23:45 01/27/25 09:04 5 MG Albuterol 2.5 mg Q6HR NEB 01/25/25 06:00 01/27/25 06:52 2.5 MG Ipratropium [place] 0.5 mg Q6HR NEB 01/25/25 06:00 01/27/25 06:52 0.5 MG Vancomycin HCl 100 ml @ 100 mls/hr Q8H IV 01/25/25 17:00 01/27/25 09:03 100 MLS/HR laboratory and microbiology Laboratory Tests 01/27/25 06:09 Test 01/27/25 06:09 Range/Units Serum Glucose 99 74-106 mg/dL Problem List/Assessment/Plan Problem List/Assessment/Plan 01/27/25 FEELS BETTER BUT STILL HAS DISCOMFORT AND THE FLUID FROM THE DRAIN IS STILL PURULENT, WBC IS LOWER BUT HAS PERSISTENT LEFT SHIFT. THERE IS EVIDENCE OF INFECTION INSIDE HIS RIGHT THORACIC CAVITY WELL ALONG THE TRACHEA IN THE RIGHT NECK Plan discussed with: Patient, Other PORFIRIO SHIPMAN MD Jan 27, 2025 10:13
--- NOTE | 2025-01-27 10:53 | DVHPN2 ---
Progress Note Date Seen: Jan 27, 2025 Has the PT tested + for MRSA If YES, has PT been informed?: No Medical Necessity Reason Pt with a Central, PICC or Fol: No Objective vital signs Vital Sign Date Time Temp Pulse Resp B/P (MAP) Pulse Ox O2 Delivery O2 Flow Rate FiO2 01/27/25 07:00 98 18 100 01/27/25 06:53 Room Air 0.0 01/27/25 06:53 21 01/27/25 05:00 98.5 135/76 (95) 98.5 Total Intake and Output 01/26/25 01/26/25 01/27/25 15:00 23:00 07:00 Intake Total 150 ml 630 ml 500 ml Output Total 350 ml 990 ml Balance 150 ml 280 ml -490 ml medications Current Medications Medications Dose Ordered Sig/Sobeida Route Start Time Stop Time Status Last Admin Dose Admin Vancomycin HCl 0 ml @ 0 mls/hr UD IV 01/23/25 16:15 Acetaminophen 650 mg Q6HP PRN PO 01/23/25 16:15 Acetaminophen/ Hydrocodone Bitart 1 tab Q4HP PRN PO 01/23/25 16:15 01/27/25 08:11 1 TAB Clindamycin Phosphate 50 ml @ 50 mls/hr Q8HR IV 01/24/25 06:00 01/27/25 06:38 50 MLS/HR Meropenem 50 ml @ 17 mls/hr Q8H IV 01/24/25 04:00 01/27/25 03:43 17 MLS/HR Baclofen 5 mg DAILY PO 01/23/25 23:45 01/27/25 09:04 5 MG Albuterol 2.5 mg Q6HR NEB 01/25/25 06:00 01/27/25 06:52 2.5 MG Ipratropium [place] 0.5 mg Q6HR NEB 01/25/25 06:00 01/27/25 06:52 0.5 MG Vancomycin HCl 100 ml @ 100 mls/hr Q8H IV 01/25/25 17:00 01/27/25 09:03 100 MLS/HR laboratory and microbiology Laboratory Tests 01/27/25 06:09 Test 01/27/25 06:09 Range/Units Serum Glucose 99 74-106 mg/dL Problem List/Assessment/Plan Problem List/Assessment/Plan 01/27/25 FEELS BETTER BUT STILL HAS DISCOMFORT AND THE FLUID FROM THE DRAIN IS STILL PURULENT, WBC IS LOWER BUT HAS PERSISTENT LEFT SHIFT. THERE IS EVIDENCE OF INFECTION INSIDE HIS RIGHT THORACIC CAVITY WELL ALONG THE TRACHEA IN THE RIGHT NECK 01/27/25 WENT TO X RAY TO CONFIRM MY INTERPRETATION OF CT FINDINGS, RADIOLOGIST AGREES WITH PRESENCE OF PUS IN THE APICAL PORTION OF RIGHT CHEST CAVITY , DUE TO SEVERE EMPHYSEMATOUS CHANGES IN PT'S LUNG WILL REQUEST PERCUTANEOUS DRAINAGE OF THIS,PROBABLY EXTRA-PLEURAL COLLECTION OF RIGHT CHEST CAVITY COLLECTION OF PUS Plan discussed with: Patient PORFIRIO SHIPMAN MD Jan 27, 2025 10:53
--- NOTE | 2025-01-27 13:28 | DVHPNRES ---
Progress Note Date Seen: Jan 27, 2025 Resident Creating Document: EDWARD WU RESIDENT Has the PT tested + for MRSA If YES, has PT been informed?: No Medical Necessity Reason Pt with a Central, PICC or Fol: No Subjective Review of Systems This is a 74-year-old male with past medical history of hypertension and chronic back pain. Patient presented to the ED due to chronic cough associated with shortness of breaths and right upper chest tenderness. Patient states that the cough started two weeks ago initially was not associated with tenderness for shortness of breaths. Patient states that after a couple of days of chronic cough he started developing right upper chest tenderness associated with shortness of breaths and sputum production that was yellowish in color. Patient also states that five days ago he started developing a lump in the right upper chest which is erythematous, warmth to palpation and very tender to soft touch as well. Patient reports decreasing appetite and has lost a couple of lb in the last week but when asked about weight loss in the past six months the patient denied. The patient also reported recent night sweats but denied fever or chills. Initial labs [place] [address] with unremarkable BNP. Lactic acid was elevated at 2.7, troponins came back negative, EKG was showing sinus tachycardia with no ST segment abnormalities. Patient was initially placed on 4 L of oxygen through nasal cannula and was started on IV antibiotics and steroids. Initial chest x-ray was ordered showing a right upper lung opacity. Upon my examination, there is a erythematous elevated lump located in the right upper chest the level of the clavicle that is erythematous and warm and tender to palpation. We will order a CT scan of the chest without contrast to determine if the opacity seen in the x-ray is actually inside or outside the lung. Patient seen and examined at bedside. Patient states that right upper chest still mild tender to palpation but better compared to admission. Patient denies fever/chills, shortness of breath, abdominal tenderness or any other associated symptoms at this time. A CT scan of the chest with contrast was performed showing persistent multi located fluid collection in the anterior right chest wall with drainage catheter in Situ. There is also severe emphysema with bilateral lower lobe compressive atelectasis and small bilateral pleural effusion. Surgery is in the case and recommended that interventional radiologist placed a drain for thoracic extrapleural collection of pus in apical right chest. Meanwhile, we will continue IV vancomycin, clindamycin and meropenem. WBC is coming down and BNP was unremarkable as well. ROS Constitutional: Denies weight loss, fever and chills. HEENT: Denies changes in vision and hearing. Respiratory: Still reports mild right upper chest wall tenderness to palpation, denies shortness of breaths or cough. Cardiovascular: Denies chest discomfort or palpitations GI: Denies abdominal pain, nausea, vomiting and diarrhea. : Denies dysuria and urinary frequency. Musculoskeletal: Denies myalgias and joint pain Skin: Denies rash and pruritus. Neurological: Denies dizziness, headache, vision or hearing problems Objective vital signs Vital Sign Date Time Temp Pulse Resp B/P (MAP) Pulse Ox O2 Delivery O2 Flow Rate FiO2 01/27/25 11:32 99 18 100 01/27/25 11:27 Nasal Cannula 2.0 01/27/25 11:27 28 01/27/25 09:00 97.7 124/67 (86) 97.7 Total Intake and Output 01/26/25 01/26/25 01/27/25 15:00 23:00 07:00 Intake Total 150 ml 630 ml 500 ml Output Total 350 ml 990 ml Balance 150 ml 280 ml -490 ml medications Current Medications Medications Dose Ordered Sig/Sobeida Route Start Time Stop Time Status Last Admin Dose Admin Vancomycin HCl 0 ml @ 0 mls/hr UD IV 01/23/25 16:15 Acetaminophen 650 mg Q6HP PRN PO 01/23/25 16:15 Acetaminophen/ Hydrocodone Bitart 1 tab Q4HP PRN PO 01/23/25 16:15 01/27/25 08:11 1 TAB Clindamycin Phosphate 50 ml @ 50 mls/hr Q8HR IV 01/24/25 06:00 01/27/25 06:38 50 MLS/HR Meropenem 50 ml @ 17 mls/hr Q8H IV 01/24/25 04:00 01/27/25 12:01 17 MLS/HR Baclofen 5 mg DAILY PO 01/23/25 23:45 01/27/25 09:04 5 MG Albuterol 2.5 mg Q6HR NEB 01/25/25 06:00 01/27/25 11:27 2.5 MG Ipratropium [place] 0.5 mg Q6HR NEB 01/25/25 06:00 01/27/25 11:27 0.5 MG Vancomycin HCl 100 ml @ 100 mls/hr Q8H IV 01/25/25 17:00 01/27/25 09:03 100 MLS/HR Examination Physical Examination General: Patient alert and oriented in person, place and time. Patient following commands. HEENT: Normocephalic, atraumatic, moist mucous membranes Respiratory/pulmonary: Clear lungs bilaterally, no associated crackles or wheezes. on 2Lof O2 through [place] Cardiovascular: Normal heart sounds S1 and S2 with no associated murmurs. S/P Incision and drainage of abscess. There is very mild tenderness to palpation on the right upper chest with a DOTTIE drain on place draining 90cc of serosanguineous fluid in last 12hours. There is coverage with clean gauze. Abdomen: Abdomen nondistended, there is no pain to palpation in any of the abdominal quadrants, no palpable masses. Extremities: There is no peripheral edema present at the lower extremities. Peripheral Pulses: 3+ Radial (R). 3+ Radial (L). 3+ Dorsalis pedis (R). 3+ Dorsalis pedis(L) Skin: No rashes or pruritus, there is no sacral edema present at this time. Neurological: Intact cranial nerves with no focal neurologic deficits laboratory and microbiology Laboratory Tests 01/27/25 06:09 Test 01/27/25 06:09 Range/Units Serum Glucose 99 74-106 mg/dL Microbiology Date/Time Source Procedure Growth Status 01/23/25 17:35 Voided Urine Urine Culture - Final Complete 01/23/25 12:45 Blood Blood Culture - Preliminary NO GROWTH AFTER 72 HOURS OF INCUBATION. Resulted Problem List/Assessment/Plan Problem List/Assessment/Plan Assessment/Plan Acute Hypoxic respiratory failure likely due to Gram-positive/Gram-negative pneumonia Acute Right upper chest cellulitis with Abscess Ruled out ACS Sepsis sec to above -we will chest x-ray is showing a right upper lobe opacity, not clear if it is actually inside the lung or it could be an abscess outside the lung. -Continue IV vancomycin -Continue Clindamycin -Continue Meropenem -Ordered CT scan of the chest with contrast which showed soft tissue edema of the right chest wall with complex multiloculated fluid collection with multiple foci of air extending from the right lower neck soft tissue to the right anterior upper chest musculature. -lactic acid was 2.7 -EKG showed sinus tachycardia with no ST segment elevation or depression. -troponins came back normal -echo showed an LVEF of 65% with normal cardiac valves and no pericardial effusion. -currently on 2 L of oxygen through nasal cannula saturating 97% -ordered urine and blood cultures, blood cultures showing no growth at this time. -ordered sputum culture and MRSA nares -respiratory therapy with albuterol and ipratropium med nebs q.6 -surgery on board, patient refused surgery. -surgery perform incision and drainage of right upper chest abscess and placement of a DOTTIE drainage which is draining approximately 90 cc in the last 12 hours -new CT scan of the chest with contrast showed persistent multi located fluid collection in the anterior right chest wall with drainage catheter in Situ. There is also severe emphysema with bilateral lower lobe compressive atelectasis and small bilateral pleural effusion. -Surgery recommended that interventional radiologist to place a drain for thoracic extrapleural collection of pus in apical right chest. Cultures will be sent once again. Primary hypertension -BP currently on lower side -Monitor BP and add meds as needed chronic back pain -continue baclofen 5mg daily Severe protein malnutrition -Consult tonger Goals of care discussed with the patient and son at bedside for >30min, FULL CODE Plan discussed with Dr. Ornelas Plan discussed with: Patient My Orders My Orders Orders - EDWARD WU Procedure Category Date Status Time Chest Xray 1 View XY 01/27/25 Resulted 04:00 Dietary Evaluation Review Comments: Encourage and monitor PO intake to meet 75% of his needs Expected Outcomes/Goals: gradual wt gain, healed abscess incision site. Date of Service: Jan 27, 2025 Billing Provider: KEIKO ORNELAS MD Common Visit Codes: [id number] INP/OBS CARE(HIGH) EDWARD WU RESIDENT Jan 27, 2025 13:28 KEIKO ORNELAS MD Jan 27, 2025 21:37
--- NOTE | 2025-01-27 15:53 | DVH ---
US CHEST ULTRASOUND, HISTORY: POSSIBLE DRAIN PLACEMENT COMPARISON(S): None TECHNICAL DATA: Transverse and longitudinal images are obtained of the chest. FINDING: IMPRESSION(S): There is trace bilateral pleural effusion.
--- NOTE | 2025-01-27 16:14 | DVH ---
EXAM: US LIVER CLINICAL HISTORY: Acute transaminitis TECHNIQUE: Grayscale and limited color flow doppler ultrasound of the right upper quadrant is perfor med. COMPARISON: None Findings: Liver measures 18.5 cm in length with heterogeneous echotexture and contour. No evidence of focal hep atic lesions or intra- or extrahepatic ductal dilatation. Common bile duct measures 0.4 cm in diamete r. Normal hepatopedal flow noted within the portal vein. No perihepatic free fluid is noted. Gallbladder appears within normal limits with gallbladder wall thickness measuring 0.1 cm. No evidenc e of shadowing calculi, biliary sludge or pericholecystic fluid. Negative sonographic Gómez's sign. Pancreas not well-visualized due to overlying bowel gas. Right kidney measures 10.8 cm with normal contours, echotexture and cortical thickness. Anechoic lesi on in the midpole. No evidence of hydronephrosis, calculi, or solid renal lesions. Partially visualized inferior vena cava unremarkable. Impression: 1. No evidence of acute right upper quadrant abnormalities. 2. Hepatomegaly with heterogeneous echotexture, nonspecific. 3. Small right renal cyst.
[2025-01-28] VITALS (14 sets, daily range): BP systolic 116–137; BP diastolic 65–89; PULSE 102–112; RESP 18–20; TEMP 98–99.4; O2SAT 96–100
[2025-01-28 07:16] LABS: Basophils # (auto) 0 10 ^3/uL (0-0.2); Eosinophils # (auto) 0 10 ^3/uL (0-0.8); Eosinophils % (auto) 0.1 % (0.0-7.0); Hemoglobin 11.7 g/dL (13.5-17.5); Lymphocytes # (auto) 0.9 10 ^3/uL (0.4-5.4); Monocytes # (auto) 0.4 10 ^3/uL (0-1.3); White Blood Cell 7.3 10^3/uL (4.4-10.8)
[2025-01-28 07:23] LABS: Basophils % (auto) 0.6 % (0.0-2.0); Hematocrit 33.5 % (41.0-53.0); Lymphocytes % (auto) 12.2 % (10.0-50.0); Mean Corpuscular Hemoglobin 34.9 pg (28.0-32.0); Mean Corpuscular Hgb Conc. 34.9 g/dL (32.0-36.0); Mean Corpuscular Volume 100.1 fL (80.0-100.0); Monocytes % (auto) 5.7 % (0.0-12.0); Neutrophils % (auto) 81.4 % (37.0-80.0); Platelet Count (auto) 524 10^3/uL (140-450); Red Blood Cells 3.34 10^6/uL (4.5-5.90); Red Cell Distribution Width 14.9 % (11.8-14.3)
[2025-01-28 07:33] LABS: Alkaline Phosphatase 77 U/L (46-116); Anion Gap 7 (5-15); BUN/Creatinine Ratio 18.2 (10.0-20.0); Blood Urea Nitrogen 10 mg/dL (9-23); Calcium 8.9 mg/dL (8.7-10.4); Carbon Dioxide 29 mmol/L (20-31); Chloride 99 mmol/L (98-107); Glucose 94 mg/dL (74-106); Potassium 3.9 mmol/L (3.5-5.1); Total Protein 6.3 g/dL (5.7-8.2)
[2025-01-28 07:44] LABS: Alanine Aminotransferase 51 U/L (7-40); Albumin 3.1 g/dL (3.2-4.8); Aspartate Aminotransferase 51 U/L (13-40); Sodium 135 mmol/L (136-145)
[2025-01-28] MEDS: fentaNYL CITRATE 100 MCG/2 ML VL IV ONE (09:15)
[2025-01-28] MEDS: MIDAZOLAM HCL 2MG/2ML 2ml VIAL (1mg/ml) IV ONE (09:15)
--- NOTE | 2025-01-28 10:19 | DVHPNRES ---
Progress Note Date Seen: Jan 28, 2025 Resident Creating Document: EDWARD WU RESIDENT Has the PT tested + for MRSA If YES, has PT been informed?: No Medical Necessity Reason Pt with a Central, PICC or Fol: No Subjective Review of Systems This is a 74-year-old male with past medical history of hypertension and chronic back pain. Patient presented to the ED due to chronic cough associated with shortness of breaths and right upper chest tenderness. Patient states that the cough started two weeks ago initially was not associated with tenderness for shortness of breaths. Patient states that after a couple of days of chronic cough he started developing right upper chest tenderness associated with shortness of breaths and sputum production that was yellowish in color. Patient also states that five days ago he started developing a lump in the right upper chest which is erythematous, warmth to palpation and very tender to soft touch as well. Patient reports decreasing appetite and has lost a couple of lb in the last week but when asked about weight loss in the past six months the patient denied. The patient also reported recent night sweats but denied fever or chills. Initial labs [place] [address] with unremarkable BNP. Lactic acid was elevated at 2.7, troponins came back negative, EKG was showing sinus tachycardia with no ST segment abnormalities. Patient was initially placed on 4 L of oxygen through nasal cannula and was started on IV antibiotics and steroids. Initial chest x-ray was ordered showing a right upper lung opacity. Upon my examination, there is a erythematous elevated lump located in the right upper chest the level of the clavicle that is erythematous and warm and tender to palpation. We will order a CT scan of the chest without contrast to determine if the opacity seen in the x-ray is actually inside or outside the lung. Patient seen and examined at bedside. Patient still reporting mild tenderness in the right upper chest where the DOTTIE drainage is located. Per nurse DOTTIE is draining 20 cc in the last 12 hours. Yesterday, CT scan of the chest with contrast showed persistent fluid collection of the right upper chest reason why surgery decided to consult IR for chest drain placement which will be performed today. We will place the patient NPO for procedure which is going to be done today. Otherwise, there was no night's events, no fever/chills. Patient denies shortness of breath, abdominal tenderness, or any other symptoms or concerns at this time. We will continue the patient on vancomycin, clindamycin, meropenem and pain medications. ROS Constitutional: Denies weight loss, fever and chills. HEENT: Denies changes in vision and hearing. Respiratory: Denies shortness of breath and cough Cardiovascular: Still reports mild tenderness to palpation at the right upper chest, denies palpitations. GI: Denies abdominal pain, nausea, vomiting and diarrhea. : Denies dysuria and urinary frequency. Musculoskeletal: Denies myalgias and joint pain Skin: Denies rash and pruritus. Neurological: Denies dizziness, headache, vision or hearing problems Objective vital signs Vital Sign Date Time Temp Pulse Resp B/P (MAP) Pulse Ox O2 Delivery O2 Flow Rate FiO2 01/28/25 09:00 98.8 111 18 116/65 (82) 98 98.8 01/28/25 06:19 Nasal Cannula 2.0 01/28/25 06:19 28 Total Intake and Output 01/27/25 01/27/25 01/28/25 15:00 23:00 07:00 Intake Total 150 ml 1726 ml 350 ml Output Total 500 ml 900 ml Balance 150 ml 1226 ml -550 ml medications Current Medications Medications Dose Ordered Sig/Sobeida Route Start Time Stop Time Status Last Admin Dose Admin Vancomycin HCl 0 ml @ 0 mls/hr UD IV 01/23/25 16:15 Acetaminophen 650 mg Q6HP PRN PO 01/23/25 16:15 Acetaminophen/ Hydrocodone Bitart 1 tab Q4HP PRN PO 01/23/25 16:15 01/27/25 20:04 1 TAB Clindamycin Phosphate 50 ml @ 50 mls/hr Q8HR IV 01/24/25 06:00 01/28/25 06:40 50 MLS/HR Meropenem 50 ml @ 17 mls/hr Q8H IV 01/24/25 04:00 01/28/25 03:29 17 MLS/HR Baclofen 5 mg DAILY PO 01/23/25 23:45 01/27/25 09:04 5 MG Albuterol 2.5 mg Q6HR NEB 01/25/25 06:00 01/28/25 06:18 2.5 MG Ipratropium [place] 0.5 mg Q6HR NEB 01/25/25 06:00 01/28/25 06:19 0.5 MG Vancomycin HCl 100 ml @ 100 mls/hr Q8H IV 01/25/25 17:00 01/28/25 00:53 100 MLS/HR Examination Physical Examination General: Patient alert and oriented in person, place and time. Patient following commands. HEENT: Normocephalic, atraumatic, moist mucous membranes Respiratory/pulmonary: Clear lungs bilaterally, no associated crackles or wheezes. on 2Lof O2 through [place] Cardiovascular: Normal heart sounds S1 and S2 with no associated murmurs. S/P Incision and drainage of abscess. There is very mild tenderness to palpation on the right upper chest with a DOTTIE drain on place draining 20cc of serosanguineous fluid in last 12hours. Abdomen: Abdomen nondistended, there is no pain to palpation in any of the abdominal quadrants, no palpable masses. Extremities: There is no peripheral edema present at the lower extremities. Peripheral Pulses: 3+ Radial (R). 3+ Radial (L). 3+ Dorsalis pedis (R). 3+ Dorsalis pedis(L) Skin: No rashes or pruritus, there is no sacral edema present at this time. Neurological: Intact cranial nerves with no focal neurologic deficits laboratory and microbiology Laboratory Tests 01/28/25 05:39 Test 01/28/25 05:39 Range/Units Serum Glucose 94 74-106 mg/dL Microbiology Date/Time Source Procedure Growth Status 01/23/25 17:35 Voided Urine Urine Culture - Final Complete 01/23/25 12:45 Blood Blood Culture - Preliminary NO GROWTH AFTER 72 HOURS OF INCUBATION. Resulted Problem List/Assessment/Plan Problem List/Assessment/Plan Assessment/Plan Acute Hypoxic respiratory failure likely due to Gram-positive/Gram-negative pneumonia Acute Right upper chest cellulitis with Abscess Ruled out ACS Sepsis sec to above -we will chest x-ray is showing a right upper lobe opacity, not clear if it is actually inside the lung or it could be an abscess outside the lung. -Continue IV vancomycin -Continue Clindamycin -Continue Meropenem -Ordered CT scan of the chest with contrast which showed soft tissue edema of the right chest wall with complex multiloculated fluid collection with multiple foci of air extending from the right lower neck soft tissue to the right anterior upper chest musculature. -lactic acid was 2.7 -EKG showed sinus tachycardia with no ST segment elevation or depression. -troponins came back normal -echo showed an LVEF of 65% with normal cardiac valves and no pericardial effusion. -currently on 2 L of oxygen through nasal cannula saturating 97% -ordered urine and blood cultures, blood cultures showing no growth at this time. -ordered sputum culture and MRSA nares -respiratory therapy with albuterol and ipratropium med nebs q.6 -surgery on board, patient refused surgery. -surgery perform incision and drainage of right upper chest abscess and placement of a DOTTIE drainage which is draining approximately 20 cc in the last 12 hours -new CT scan of the chest with contrast showed persistent multi located fluid collection in the anterior right chest wall with drainage catheter in Situ. There is also severe emphysema with bilateral lower lobe compressive atelectasis and small bilateral pleural effusion. -Surgery recommended that interventional radiologist to place a drain for thoracic extrapleural collection of pus in apical right chest. Chest wall drain will be placed today by IR -Cultures will be sent once again. 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 Ornelas Plan discussed with: Patient My Orders My Orders Orders - EDWARD WU RESIDENT Procedure Category Date Status Time Wound Culture W/ Gs MANA 01/27/25 In Process 13:27 LIVER US 01/27/25 Resulted 14:42 Vancomycin,Trough LAB 01/30/25 Verified 08:00 Vancomycin Per PRINCE 01/27/25 In Process Pharmacy Protoc 14:47 Consult For Nutrition NOURISH 01/27/25 Transmitted 18:00 Npo (Nothing By DIET 01/28/25 Transmitted Mouth) Diet Breakfast Ct Guidance For CT 01/28/25 Logged Needle [place] Chest Without Contrast CT 01/28/25 Logged Us Guidance For US 01/28/25 Logged Needle [place] 09:07 Dietary Evaluation Review Comments: Encourage and monitor PO intake to meet 75% of his needs Expected Outcomes/Goals: gradual wt gain, healed abscess incision site. EDWARD WU RESIDENT Jan 28, 2025 10:19
--- NOTE | 2025-01-28 19:31 | DVH ---
CT CT GUIDANCE FOR NEEDLE PLACEME, HISTORY: CHEST DRAIN PLACEMENT COMPARISON: None PROCEDURE: Informed consent was obtained. The patient was placed supine on the CT scanner. IV sedatio n was administered. The fluid collection was localized under US/CT scan and the overlying skin preppe d with chlorhexidine which was allowed to dry and draped in the usual sterile fashion and infiltrated with Xylocaine. Time out was performed. With US/CT guidance, a 19-gauge centesis needle catheter was advanced into the fluid collection. Following aspiration of a small amount of fluid, a 0.035 wire w as advanced into the fluid collection. Placement was confirmed with CT scan. After serial dilatation, a 8 Slovenian multipurpose pigtail drain was placed into the collection. Approximately 18 cc of purulen t fluid was aspirated, with specimen sent for appropriate laboratory/cytology/laboratory and cytology evaluation. The drain was sutured at the skin surface and connected to suction drainage. No immediat e complication was noted. Post procedure CT imaging through the drain site was obtained. DLP =4391 mGy-cm. SEDATION: Dr. Maurilio Zelaya was personally responsible for the administration of moderate sedation during the procedure performed, including the use of an independent trained observer who had no other duties during the procedure. The drugs utilized were IV fentanyl and versed (see nursing log for details). The total time of supervision by the attending physician was approximately 45 minutes. FINDINGS: Ultrasound and CT imaging through the chest shows a right apical extra pleural abscess betw een the 1st and 2nd rib spaces anteriorly. Percutaneous placement of an 8 japanese pigtail drainage cat heter into the right apical extra pleural abscess between the 1st and 2nd rib spaces with removal of approximately 20 ml of purulent fluid. IMPRESSION: Percutaneous placement of an 8 japanese pigtail drainage catheter into the right apical extra-pleural a bscess between the 1st and 2nd rib spaces with removal of approximately 20 ml of purulent fluid. PLAN: Routine tube care.
[2025-01-29] VITALS (15 sets, daily range): BP systolic 109–161; BP diastolic 65–81; PULSE 94–125; RESP 16–20; TEMP 98.1–99.1; O2SAT 93–100
[2025-01-29] MEDS: VANCOMYCIN 750MG KIT 100 ML IV SCH (01:17)
[2025-01-29] MEDS: FUROSEMIDE 20 MG/2 ML VIAL IV SCH (09:57)
--- NOTE | 2025-01-29 10:21 | DVHPNRES ---
Progress Note Date Seen: Jan 29, 2025 Resident Creating Document: EDWARD WU RESIDENT Has the PT tested + for MRSA If YES, has PT been informed?: No Medical Necessity Reason Pt with a Central, PICC or Fol: No Subjective Review of Systems This is a 74-year-old male with past medical history of hypertension and chronic back pain. Patient presented to the ED due to chronic cough associated with shortness of breaths and right upper chest tenderness. Patient states that the cough started two weeks ago initially was not associated with tenderness for shortness of breaths. Patient states that after a couple of days of chronic cough he started developing right upper chest tenderness associated with shortness of breaths and sputum production that was yellowish in color. Patient also states that five days ago he started developing a lump in the right upper chest which is erythematous, warmth to palpation and very tender to soft touch as well. Patient reports decreasing appetite and has lost a couple of lb in the last week but when asked about weight loss in the past six months the patient denied. The patient also reported recent night sweats but denied fever or chills. [place] [address] with unremarkable BNP. Lactic acid was elevated at 2.7, troponins came back negative, EKG was showing sinus tachycardia with no ST segment abnormalities. Patient was initially placed on 4 L of oxygen through nasal cannula and was started on IV antibiotics and steroids. Initial chest x-ray was ordered showing a right upper lung opacity. Upon my examination, there is a erythematous elevated lump located in the right upper chest the level of the clavicle that is erythematous and warm and tender to palpation. We will order a CT scan of the chest without contrast to determine if the opacity seen in the x-ray is actually inside or outside the lung. Patient is seen and examined at bedside. Patient in the weaned chest wall drain placement by IR yesterday. Patient has now 2 drainages on the right upper chest. one is the DOTTIE drain which is draining 20cc in the last 12 hrs and the other chest wall drain uresil is draining 70cc in last 24hrs. Patient still reports mild tenderness in the right upper chest but states that he is way better compared to admission. Patient was instructed to keep doing incentive spirometry. Patient still on 2 L of oxygen through nasal cannula. Patient denies any other symptoms or complaints at this time. We will continue the patient on vancomycin, meropenem and clindamycin for broad-spectrum antibiotic coverage. We are still waiting for cultures. ROS Constitutional: Denies weight loss, fever and chills. HEENT: Denies changes in vision and hearing. Respiratory: Denies shortness of breath and cough Cardiovascular: Still reporting right upper chest discomfort on palpation. Denies palpitation GI: Denies abdominal pain, nausea, vomiting and diarrhea. : Denies dysuria and urinary frequency. Musculoskeletal: Denies myalgias and joint pain Skin: Denies rash and pruritus. Neurological: Denies dizziness, headache, vision or hearing problems Objective vital signs Vital Sign Date Time Temp Pulse Resp B/P (MAP) Pulse Ox O2 Delivery O2 Flow Rate FiO2 01/29/25 09:57 131/81 01/29/25 06:22 107 18 100 01/29/25 06:15 Nasal Cannula 2.0 01/29/25 06:15 28 01/29/25 05:00 98.2 98.2 Total Intake and Output 01/28/25 01/28/25 01/29/25 15:00 23:00 07:00 Intake Total 200 ml 290 ml 260 ml Output Total 40 ml 470 ml 1010 ml Balance 160 ml -180 ml -750 ml medications Current Medications Medications Dose Ordered Sig/Sobeida Route Start Time Stop Time Status Last Admin Dose Admin Vancomycin HCl 0 ml @ 0 mls/hr UD IV 01/23/25 16:15 Acetaminophen 650 mg Q6HP PRN PO 01/23/25 16:15 Acetaminophen/ Hydrocodone Bitart 1 tab Q4HP PRN PO 01/23/25 16:15 01/28/25 23:02 1 TAB Clindamycin Phosphate 50 ml @ 50 mls/hr Q8HR IV 01/24/25 06:00 01/28/25 22:33 50 MLS/HR Meropenem 50 ml @ 17 mls/hr Q8H IV 01/24/25 04:00 01/29/25 05:06 17 MLS/HR Baclofen 5 mg DAILY PO 01/23/25 23:45 01/29/25 09:56 5 MG Albuterol 2.5 mg Q6HR NEB 01/25/25 06:00 01/29/25 06:15 2.5 MG Ipratropium [place] 0.5 mg Q6HR NEB 01/25/25 06:00 01/29/25 06:15 0.5 MG Vancomycin HCl 100 ml @ 100 mls/hr Q8H IV 01/29/25 01:00 01/29/25 09:57 100 MLS/HR Furosemide 20 mg DAILY IV 01/29/25 10:00 01/29/25 09:57 20 MG Enteral Nutritional Formula 240 ml BIDWM PO 01/29/25 18:00 Examination Physical Examination General: Patient alert and oriented in person, place and time. Patient following commands. HEENT: Normocephalic, atraumatic, moist mucous membranes Respiratory/pulmonary: Clear lungs bilaterally, no associated crackles or wheezes. on 2Lof O2 through [place] Cardiovascular: Normal heart sounds S1 and S2 with no associated murmurs. S/P Incision and drainage of abscess. There is very mild tenderness to palpation on the right upper chest with a DOTTIE drain on place draining 30cc of serosanguineous fluid in last 12hours. the uresil chest wall drain is draining 70cc in the last 24hrs. Abdomen: Abdomen nondistended, there is no pain to palpation in any of the abdominal quadrants, no palpable masses. Extremities: There is no peripheral edema present at the lower extremities. Peripheral Pulses: 3+ Radial (R). 3+ Radial (L). 3+ Dorsalis pedis (R). 3+ Dorsalis pedis(L) Skin: No rashes or pruritus, there is no sacral edema present at this time. Neurological: Intact cranial nerves with no focal neurologic deficits laboratory and microbiology Laboratory Tests 01/28/25 05:39 Test 01/28/25 05:39 Range/Units Serum Glucose 94 74-106 mg/dL Microbiology Date/Time Source Procedure Growth Status 01/27/25 14:50 Drainage Gram Stain - Final Resulted 01/27/25 14:50 Drainage Wound Culture - Preliminary Resulted 01/23/25 17:35 Voided Urine Urine Culture - Final Complete 01/23/25 12:45 Blood Blood Culture - Final NO GROWTH AFTER 5 DAYS OF INCUBATION. Complete Problem List/Assessment/Plan Problem List/Assessment/Plan Assessment/Plan Acute Hypoxic respiratory failure likely due to Gram-positive/Gram-negative pneumonia Acute Right upper chest cellulitis with Abscess Ruled out ACS Sepsis sec to above -we will chest x-ray is showing a right upper lobe opacity, not clear if it is actually inside the lung or it could be an abscess outside the lung. -Continue IV vancomycin -Continue Clindamycin -Continue Meropenem -Ordered CT scan of the chest with contrast which showed soft tissue edema of the right chest wall with complex multiloculated fluid collection with multiple foci of air extending from the right lower neck soft tissue to the right anterior upper chest musculature. -lactic acid was 2.7 -EKG showed sinus tachycardia with no ST segment elevation or depression. -troponins came back normal -echo showed an LVEF of 65% with normal cardiac valves and no pericardial effusion. -currently on 2 L of oxygen through nasal cannula saturating 97% -ordered urine and blood cultures, blood cultures showing no growth at this time. -ordered sputum culture and MRSA nares -respiratory therapy with albuterol and ipratropium med nebs q.6 -surgery on board, patient refused surgery. -surgery perform incision and drainage of right upper chest abscess and placement of a DOTTIE drainage which is draining approximately 30 cc in the last 12 hours -new CT scan of the chest with contrast showed persistent multi located fluid collection in the anterior right chest wall with drainage catheter in Situ. There is also severe emphysema with bilateral lower lobe compressive atelectasis and small bilateral pleural effusion. -Interventional radiologist placed a uresil chest wall drain which is draining 70cc in the last 24 hrs. 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 Streeter Plan discussed with: Patient My Orders My Orders Orders - EDWARD WU RESIDENT Procedure Category Date Status Time Insert Midline ORDERS 01/28/25 Transmitted 13:41 Vancomycin 750mg Kit PHA 01/29/25 In Process (Vancomycin Hcl) 01:00 Regular Diet DIET 01/28/25 Transmitted Dinner Complete Blood Count LAB 01/29/25 Logged 04:00 Basic Metabolic Panel LAB 01/29/25 Logged 04:00 Acute Hepatitis Panel LAB 01/29/25 Logged 07:55 Furosemide Injection PHA 01/29/25 In Process (Lasix Injection) 10:00 Nutritional PHA 01/29/25 In Process Supplements (Ensure 18:00 Dietary Evaluation Review Comments: Encourage and monitor PO intake to meet 75% of his needs Expected Outcomes/Goals: gradual wt gain, healed abscess incision site. Date of Service: Jan 29, 2025 Billing Provider: NICK STREETER DO Common Visit Codes: [id number] INP/OBS CARE(HIGH) EDWARD WU RESIDENT Jan 29, 2025 10:[address]RE[address]ER DO Jan 31, 2025 20:51
[2025-01-29 11:59] LABS: Basophils # (auto) 0 10 ^3/uL (0-0.2); Basophils % (auto) 0.3 % (0.0-2.0); Eosinophils # (auto) 0 10 ^3/uL (0-0.8); Eosinophils % (auto) 0.1 % (0.0-7.0); Hematocrit 40.8 % (41.0-53.0); Hemoglobin 13.7 g/dL (13.5-17.5); Lymphocytes # (auto) 0.7 10 ^3/uL (0.4-5.4); Lymphocytes % (auto) 10.8 % (10.0-50.0); Mean Corpuscular Hemoglobin 35.3 pg (28.0-32.0); Mean Corpuscular Hgb Conc. 33.7 g/dL (32.0-36.0); Mean Corpuscular Volume 104.7 fL (80.0-100.0); Monocytes # (auto) 0.3 10 ^3/uL (0-1.3); Monocytes % (auto) 5.4 % (0.0-12.0); Neutrophils # (auto) 5.2 10 ^3/uL (1.6-8.6); Neutrophils % (auto) 83.4 % (37.0-80.0); Nucleated Red Blood Cells % 0.1 %; Platelet Count (auto) 470 10^3/uL (140-450); Red Blood Cells 3.89 10^6/uL (4.5-5.90); Red Cell Distribution Width 15.4 % (11.8-14.3); White Blood Cell 6.2 10^3/uL (4.4-10.8)
[2025-01-29 12:07] LABS: Chloride 100 mmol/L (98-107); Potassium 4.4 mmol/L (3.5-5.1)
[2025-01-29 12:08] LABS: Anion Gap 4 (5-15); Carbon Dioxide 29 mmol/L (20-31)
[2025-01-29 12:20] LABS: Blood Urea Nitrogen 8 mg/dL (9-23); Glucose 107 mg/dL (74-106); Sodium 133 mmol/L (136-145)
--- NOTE | 2025-01-29 13:56 | DVHPN2 ---
Progress Note Date Seen: Jan 29, 2025 Has the PT tested + for MRSA If YES, has PT been informed?: No Medical Necessity Reason Pt with a Central, PICC or Fol: No Objective vital signs Vital Sign Date Time Temp Pulse Resp B/P (MAP) Pulse Ox O2 Delivery O2 Flow Rate FiO2 01/29/25 11:46 119 18 100 01/29/25 11:40 Nasal Cannula* 2 28 01/29/25 09:57 131/81 01/29/25 09:00 98.4 98.4 Total Intake and Output 01/28/25 01/28/25 01/29/25 15:00 23:00 07:00 Intake Total 200 ml 290 ml 260 ml Output Total 40 ml 470 ml 1010 ml Balance 160 ml -180 ml -750 ml medications Current Medications Medications Dose Ordered Sig/Sobeida Route Start Time Stop Time Status Last Admin Dose Admin Vancomycin HCl 0 ml @ 0 mls/hr UD IV 01/23/25 16:15 Acetaminophen 650 mg Q6HP PRN PO 01/23/25 16:15 Acetaminophen/ Hydrocodone Bitart 1 tab Q4HP PRN PO 01/23/25 16:15 01/28/25 23:02 1 TAB Clindamycin Phosphate 50 ml @ 50 mls/hr Q8HR IV 01/24/25 06:00 01/28/25 22:33 50 MLS/HR Meropenem 50 ml @ 17 mls/hr Q8H IV 01/24/25 04:00 01/29/25 11:52 17 MLS/HR Baclofen 5 mg DAILY PO 01/23/25 23:45 01/29/25 09:56 5 MG Albuterol 2.5 mg Q6HR NEB 01/25/25 06:00 01/29/25 11:40 2.5 MG Ipratropium [place] 0.5 mg Q6HR NEB 01/25/25 06:00 01/29/25 11:40 0.5 MG Vancomycin HCl 100 ml @ 100 mls/hr Q8H IV 01/29/25 01:00 01/29/25 09:57 100 MLS/HR Furosemide 20 mg DAILY IV 01/29/25 10:00 01/29/25 09:57 20 MG Enteral Nutritional Formula 240 ml BIDWM PO 01/29/25 18:00 laboratory and microbiology Laboratory Tests 01/29/25 11:33 Test 01/29/25 11:33 Range/Units Serum Glucose 107 H 74-106 mg/dL Problem List/Assessment/Plan Problem List/Assessment/Plan 01/27/25 FEELS BETTER BUT STILL HAS DISCOMFORT AND THE FLUID FROM THE DRAIN IS STILL PURULENT, WBC IS LOWER BUT HAS PERSISTENT LEFT SHIFT. THERE IS EVIDENCE OF INFECTION INSIDE HIS RIGHT THORACIC CAVITY WELL ALONG THE TRACHEA IN THE RIGHT NECK 01/27/25 WENT TO X RAY TO CONFIRM MY INTERPRETATION OF CT FINDINGS, RADIOLOGIST AGREES WITH PRESENCE OF PUS IN THE APICAL PORTION OF RIGHT CHEST CAVITY , DUE TO SEVERE EMPHYSEMATOUS CHANGES IN PT'S LUNG WILL REQUEST PERCUTANEOUS DRAINAGE OF THIS,PROBABLY EXTRA-PLEURAL COLLECTION OF RIGHT CHEST CAVITY COLLECTION OF PUS 01/29/25 RADIOLOGISTS PLACED A DRAIN INTO RIGHT APICAL CHEST COLLECTION, PATIENT DOING WELL. CONTINUE IS Plan discussed with: Patient Dietary Evaluation Review Comments: Encourage and monitor PO intake to meet 75% of his needs Expected Outcomes/Goals: gradual wt gain, healed abscess incision site. PORFIRIO SHIPMAN MD Jan 29, 2025 13:56
[2025-01-29] MEDS: Ensure HIGH Protein Chocolate 8oz Bottle PO SCH (17:34)
[2025-01-30] VITALS (16 sets, daily range): BP systolic 106–134; BP diastolic 60–76; PULSE 62–120; RESP 18–20; TEMP 97.3–98.9; O2SAT 93–100
[2025-01-30 08:08] LABS: Basophils # (auto) 0 10 ^3/uL (0-0.2); Eosinophils # (auto) 0 10 ^3/uL (0-0.8); Eosinophils % (auto) 0.1 % (0.0-7.0); Hemoglobin 12.3 g/dL (13.5-17.5); Lymphocytes # (auto) 1.2 10 ^3/uL (0.4-5.4); Monocytes # (auto) 0.5 10 ^3/uL (0-1.3)
[2025-01-30 08:12] LABS: Basophils % (auto) 0.2 % (0.0-2.0); Hematocrit 35.6 % (41.0-53.0); Lymphocytes % (auto) 20.3 % (10.0-50.0); Mean Corpuscular Hemoglobin 35.5 pg (28.0-32.0); Mean Corpuscular Hgb Conc. 34.7 g/dL (32.0-36.0); Mean Corpuscular Volume 102.3 fL (80.0-100.0); Neutrophils # (auto) 4.2 10 ^3/uL (1.6-8.6); Neutrophils % (auto) 70.4 % (37.0-80.0); Platelet Count (auto) 398 10^3/uL (140-450); Red Blood Cells 3.48 10^6/uL (4.5-5.90); Red Cell Distribution Width 15.1 % (11.8-14.3)
[2025-01-30 08:22] LABS: Chloride 99 mmol/L (98-107); Potassium 4.8 mmol/L (3.5-5.1); Sodium 136 mmol/L (136-145)
[2025-01-30 08:23] LABS: Anion Gap 7 (5-15); Carbon Dioxide 30 mmol/L (20-31)
[2025-01-30 08:28] LABS: Blood Urea Nitrogen 9 mg/dL (9-23); Glucose 106 mg/dL (74-106)
--- NOTE | 2025-01-30 09:43 | DVHPNRES ---
Progress Note Date Seen: Jan 30, 2025 Resident Creating Document: EDWARD WU RESIDENT Has the PT tested + for MRSA If YES, has PT been informed?: No Medical Necessity Reason Pt with a Central, PICC or Fol: No Subjective Review of Systems This is a 74-year-old male with past medical history of hypertension and chronic back pain. Patient presented to the ED due to chronic cough associated with shortness of breaths and right upper chest tenderness. Patient states that the cough started two weeks ago initially was not associated with tenderness for shortness of breaths. Patient states that after a couple of days of chronic cough he started developing right upper chest tenderness associated with shortness of breaths and sputum production that was yellowish in color. Patient also states that five days ago he started developing a lump in the right upper chest which is erythematous, warmth to palpation and very tender to soft touch as well. Patient reports decreasing appetite and has lost a couple of lb in the last week but when asked about weight loss in the past six months the patient denied. The patient also reported recent night sweats but denied fever or chills. [place] [address] with unremarkable BNP. Lactic acid was elevated at 2.7, troponins came back negative, EKG was showing sinus tachycardia with no ST segment abnormalities. Patient was initially placed on 4 L of oxygen through nasal cannula and was started on IV antibiotics and steroids. Initial chest x-ray was ordered showing a right upper lung opacity. Upon my examination, there is a erythematous elevated lump located in the right upper chest the level of the clavicle that is erythematous and warm and tender to palpation. We will order a CT scan of the chest without contrast to determine if the opacity seen in the x-ray is actually inside or outside the lung. Patient seen and examined at bedside. Patient has two drains in the right upper chest one is the DOTTIE drain which is draining 60 cc in the last 12 hours and another chest drain placed by IR which is draining 10 cc in the last 12 hours per night manager nurse. The patient states that he is feeling better has just mild tenderness on deep palpation to the right upper chest. Patient denies shortness of breath. Patient was on 2 L of oxygen through nasal cannula and titrated down oxygen to 1 L and we will monitor saturations until we can titrate and wean off oxygen. Wound cultures are still growing out and ruling out pathogens no specific organism grown until this time. We will keep our current antibiotic therapy of vancomycin, meropenem and clindamycin. Patient has no additional concerns at this point. ROS Constitutional: Denies weight loss, fever and chills. HEENT: Denies changes in vision and hearing. Respiratory: Denies shortness of breath or cough. Cardiovascular: Reports very mild right upper chest tenderness on pump palpation. Denies palpitations GI: Denies abdominal pain, nausea, vomiting and diarrhea. : Denies dysuria and urinary frequency. Musculoskeletal: Denies myalgias and joint pain Skin: Denies rash and pruritus. Neurological: Denies dizziness, headache, vision or hearing problems Objective vital signs Vital Sign Date Time Temp Pulse Resp B/P (MAP) Pulse Ox O2 Delivery O2 Flow Rate FiO2 01/30/25 08:39 106/75 01/30/25 07:16 108 18 99 01/30/25 07:09 Nasal Cannula* 1 24 01/30/25 05:00 98.1 98.1 Total Intake and Output 01/29/25 01/29/25 01/30/25 15:00 23:00 07:00 Intake Total 200 ml 1540 ml 100 ml Output Total 100 ml 65 ml 15 ml Balance 100 ml 1475 ml 85 ml medications Current Medications Medications Dose Ordered Sig/Sobeida Route Start Time Stop Time Status Last Admin Dose Admin Vancomycin HCl 0 ml @ 0 mls/hr UD IV 01/23/25 16:15 Acetaminophen 650 mg Q6HP PRN PO 01/23/25 16:15 Acetaminophen/ Hydrocodone Bitart 1 tab Q4HP PRN PO 01/23/25 16:15 01/30/25 09:36 1 TAB Clindamycin Phosphate 50 ml @ 50 mls/hr Q8HR IV 01/24/25 06:00 01/30/25 05:51 50 MLS/HR Meropenem 50 ml @ 17 mls/hr Q8H IV 01/24/25 04:00 01/30/25 02:42 17 MLS/HR Baclofen 5 mg DAILY PO 01/23/25 23:45 01/30/25 08:40 5 MG Albuterol 2.5 mg Q6HR NEB 01/25/25 06:00 01/30/25 07:08 2.5 MG Ipratropium [place] 0.5 mg Q6HR NEB 01/25/25 06:00 01/30/25 07:08 0.5 MG Vancomycin HCl 100 ml @ 100 mls/hr Q8H IV 01/29/25 01:00 01/30/25 09:38 100 MLS/HR Furosemide 20 mg DAILY IV 01/29/25 10:00 01/30/25 08:39 20 MG Enteral Nutritional Formula 240 ml BIDWM PO 01/29/25 18:00 01/30/25 08:00 240 ML Examination Physical Examination General: Patient alert and oriented in person, place and time. Patient following commands. HEENT: Normocephalic, atraumatic, moist mucous membranes Respiratory/pulmonary: Clear lungs bilaterally, no associated crackles or wheezes. on 1Lof O2 through [place] Cardiovascular: Normal heart sounds S1 and S2 with no associated murmurs. S/P Incision and drainage of abscess. There is very mild tenderness to palpation on the right upper chest with a DOTTIE drain on place draining 60cc of serosanguineous fluid in last 12hours. the uresil chest wall drain is draining 10cc in the last 24hrs. Abdomen: Abdomen nondistended, there is no pain to palpation in any of the abdominal quadrants, no palpable masses. Extremities: There is no peripheral edema present at the lower extremities. Peripheral Pulses: 3+ Radial (R). 3+ Radial (L). 3+ Dorsalis pedis (R). 3+ Dorsalis pedis(L) Skin: No rashes or pruritus, there is no sacral edema present at this time. Neurological: Intact cranial nerves with no focal neurologic deficits laboratory and microbiology Laboratory Tests 01/30/25 07:56 Test 01/30/25 07:56 Range/Units Serum Glucose 106 74-106 mg/dL Microbiology Date/Time Source Procedure Growth Status 01/28/25 10:30 Aspirate Gram Stain - Final Resulted 01/28/25 10:30 Aspirate Body Fluid Culture - Preliminary Resulted 01/23/25 17:35 Voided Urine Urine Culture - Final Complete 01/23/25 12:45 Blood Blood Culture - Final NO GROWTH AFTER 5 DAYS OF INCUBATION. Complete Problem List/Assessment/Plan Problem List/Assessment/Plan Assessment/Plan Acute Hypoxic respiratory failure likely due to Gram-positive/Gram-negative pneumonia Acute Right upper chest cellulitis with Abscess Ruled out ACS Sepsis sec to above -we will chest x-ray is showing a right upper lobe opacity, not clear if it is actually inside the lung or it could be an abscess outside the lung. -Continue IV vancomycin -Continue Clindamycin -Continue Meropenem -Ordered CT scan of the chest with contrast which showed soft tissue edema of the right chest wall with complex multiloculated fluid collection with multiple foci of air extending from the right lower neck soft tissue to the right anterior upper chest musculature. -lactic acid was 2.7 -EKG showed sinus tachycardia with no ST segment elevation or depression. -troponins came back normal -echo showed an LVEF of 65% with normal cardiac valves and no pericardial effusion. -currently on 2 L of oxygen through nasal cannula saturating 97% -ordered urine and blood cultures, blood cultures showing no growth at this time. -ordered sputum culture and MRSA nares -respiratory therapy with albuterol and ipratropium med nebs q.6 -surgery on board, patient refused surgery. -surgery perform incision and drainage of right upper chest abscess and placement of a DOTTIE drainage which is draining approximately 60 cc in the last 12 hours -new CT scan of the chest with contrast showed persistent multi located fluid collection in the anterior right chest wall with drainage catheter in Situ. There is also severe emphysema with bilateral lower lobe compressive atelectasis and small bilateral pleural effusion. -Interventional radiologist placed a uresil chest wall drain which is draining 10cc in the last 24 hrs. -Cultures still pending, once cultures are back will descalate antibiotics. Primary hypertension -BP currently on lower side -Monitor BP and add meds as needed chronic back pain -continue baclofen 5mg daily Severe protein malnutrition -Consult knitting tester Goals of care discussed with the patient and son at bedside for >25min, FULL CODE Plan discussed with Dr. Streeter Plan discussed with: Patient Dietary Evaluation Review Comments: Encourage and monitor PO intake to meet 75% of his needs Expected Outcomes/Goals: gradual wt gain, healed abscess incision site. Date of Service: Jan 30, 2025 Billing Provider: NICK STREETER DO Common Visit Codes: [id number] INP/OBS CARE(HIGH) EDWARD WU RESIDENT Jan 30, 2025 09:43 NICK STREETER DO Jan 31, 2025 20:51
[2025-01-30 10:56] LABS: Hepatitis A Ab IgM Negative; Hepatitis B Core IgM Negative (Negative); Hepatitis B Surface Antigen Negative (Negative); Hepatitis C Antibody Negative (Negative)
--- NOTE | 2025-01-30 11:03 | DVHPN2 ---
Progress Note Date Seen: Jan 30, 2025 Has the PT tested + for MRSA If YES, has PT been informed?: No Medical Necessity Reason Pt with a Central, PICC or Fol: No Objective vital signs Vital Sign Date Time Temp Pulse Resp B/P (MAP) Pulse Ox O2 Delivery O2 Flow Rate FiO2 01/30/25 10:00 98 Nasal Cannula* 2 28 01/30/25 09:00 98.3 107 18 106/75 (85) 98.3 Total Intake and Output 01/29/25 01/29/25 01/30/25 15:00 23:00 07:00 Intake Total 200 ml 1540 ml 100 ml Output Total 100 ml 65 ml 15 ml Balance 100 ml 1475 ml 85 ml medications Current Medications Medications Dose Ordered Sig/Sobeida Route Start Time Stop Time Status Last Admin Dose Admin Vancomycin HCl 0 ml @ 0 mls/hr UD IV 01/23/25 16:15 Acetaminophen 650 mg Q6HP PRN PO 01/23/25 16:15 Acetaminophen/ Hydrocodone Bitart 1 tab Q4HP PRN PO 01/23/25 16:15 01/30/25 09:36 1 TAB Clindamycin Phosphate 50 ml @ 50 mls/hr Q8HR IV 01/24/25 06:00 01/30/25 05:51 50 MLS/HR Meropenem 50 ml @ 17 mls/hr Q8H IV 01/24/25 04:00 01/30/25 02:42 17 MLS/HR Baclofen 5 mg DAILY PO 01/23/25 23:45 01/30/25 08:40 5 MG Albuterol 2.5 mg Q6HR NEB 01/25/25 06:00 01/30/25 07:08 2.5 MG Ipratropium [place] 0.5 mg Q6HR NEB 01/25/25 06:00 01/30/25 07:08 0.5 MG Vancomycin HCl 100 ml @ 100 mls/hr Q8H IV 01/29/25 01:00 01/30/25 09:38 100 MLS/HR Furosemide 20 mg DAILY IV 01/29/25 10:00 01/30/25 08:39 20 MG Enteral Nutritional Formula 240 ml BIDWM PO 01/29/25 18:00 01/30/25 08:00 240 ML laboratory and microbiology Laboratory Tests 01/30/25 07:56 Test 01/30/25 07:56 Range/Units Serum Glucose 106 74-106 mg/dL Problem List/Assessment/Plan Problem List/Assessment/Plan 01/27/25 FEELS BETTER BUT STILL HAS DISCOMFORT AND THE FLUID FROM THE DRAIN IS STILL PURULENT, WBC IS LOWER BUT HAS PERSISTENT LEFT SHIFT. THERE IS EVIDENCE OF INFECTION INSIDE HIS RIGHT THORACIC CAVITY WELL ALONG THE TRACHEA IN THE RIGHT NECK 01/27/25 WENT TO X RAY TO CONFIRM MY INTERPRETATION OF CT FINDINGS, RADIOLOGIST AGREES WITH PRESENCE OF PUS IN THE APICAL PORTION OF RIGHT CHEST CAVITY , DUE TO SEVERE EMPHYSEMATOUS CHANGES IN PT'S LUNG WILL REQUEST PERCUTANEOUS DRAINAGE OF THIS,PROBABLY EXTRA-PLEURAL COLLECTION OF RIGHT CHEST CAVITY COLLECTION OF PUS 01/29/25 RADIOLOGISTS PLACED A DRAIN INTO RIGHT APICAL CHEST COLLECTION, PATIENT DOING WELL. CONTINUE IS 01/30/25 HAD SOME SHORTNESS OF BREATH EARLIER, NOW BETTER, LUNGS CLEAR TO AUSCULTATION, DRAIN WITH SMALL AMOUNT PURULENT DRAINAGE, CONTINUE IS Plan discussed with: Patient Dietary Evaluation Review Comments: Encourage and monitor PO intake to meet 75% of his needs Expected Outcomes/Goals: gradual wt gain, healed abscess incision site. PORFIRIO SHIPMAN MD Jan 30, 2025 11:03
--- NOTE | 2025-01-30 11:48 | DVH ---
CHEST RADIOGRAPH Indication: sob Technique: Single frontal view of the chest was obtained COMPARISON: XY CHEST XRAY 1 VIEW on DOS: 01/27/25, XY CHEST PORTABLE on DOS: 01/23/25 FINDINGS: Lines and Tubes: Right chest tube in satisfactory position. Lungs: Clear Pleura: No effusion. No pneumothorax. Cardiomediastinal contours: Unremarkable Bones: Unremarkable IMPRESSION: Right chest tube in-situ. No appreciable pneumothorax.
[2025-01-31] VITALS (17 sets, daily range): BP systolic 117–166; BP diastolic 66–79; PULSE 80–120; RESP 17–20; TEMP 98.4–99; O2SAT 95–100
[2025-01-31 07:27] LABS: Basophils # (auto) 0 10 ^3/uL (0-0.2); Basophils % (auto) 0.4 % (0.0-2.0); Eosinophils # (auto) 0 10 ^3/uL (0-0.8); Eosinophils % (auto) 0.1 % (0.0-7.0); Hematocrit 33.7 % (41.0-53.0); Hemoglobin 11.6 g/dL (13.5-17.5); Lymphocytes % (auto) 13.8 % (10.0-50.0); Mean Corpuscular Hemoglobin 35.4 pg (28.0-32.0); Mean Corpuscular Hgb Conc. 34.4 g/dL (32.0-36.0); Mean Corpuscular Volume 103.1 fL (80.0-100.0); Monocytes # (auto) 0.4 10 ^3/uL (0-1.3); Monocytes % (auto) 5.9 % (0.0-12.0); Neutrophils # (auto) 5.9 10 ^3/uL (1.6-8.6); Neutrophils % (auto) 79.8 % (37.0-80.0); Nucleated Red Blood Cells % 0.1 %; Platelet Count (auto) 441 10^3/uL (140-450); Red Blood Cells 3.27 10^6/uL (4.5-5.90); Red Cell Distribution Width 15.3 % (11.8-14.3); White Blood Cell 7.4 10^3/uL (4.4-10.8)
[2025-01-31 07:29] LABS: Chloride 101 mmol/L (98-107); Potassium 3.8 mmol/L (3.5-5.1)
[2025-01-31 07:35] LABS: BUN/Creatinine Ratio 15.4 (10.0-20.0); Glucose 96 mg/dL (74-106)
[2025-01-31 07:39] LABS: Blood Urea Nitrogen 8 mg/dL (9-23); Sodium 136 mmol/L (136-145)
[2025-01-31 07:48] LABS: Anion Gap 7 (5-15); Carbon Dioxide 28 mmol/L (20-31)
--- NOTE | 2025-01-31 10:11 | DVHPNRES ---
Progress Note Date Seen: Jan 31, 2025 Resident Creating Document: ALEXANDRA JOVEL RESIDENT Has the PT tested + for MRSA If YES, has PT been informed?: No Medical Necessity Reason Pt with a Central, PICC or Fol: No Subjective Review of Systems This is a 74-year-old male with past medical history of hypertension and chronic back pain. Patient presented to the ED due to chronic cough associated with shortness of breaths and right upper chest tenderness. Patient states that the cough started two weeks ago initially was not associated with tenderness for shortness of breaths. Patient states that after a couple of days of chronic cough he started developing right upper chest tenderness associated with shortness of breaths and sputum production that was yellowish in color. Patient also states that five days ago he started developing a lump in the right upper chest which is erythematous, warmth to palpation and very tender to soft touch as well. Patient reports decreasing appetite and has lost a couple of lb in the last week but when asked about weight loss in the past six months the patient denied. The patient also reported recent night sweats but denied fever or chills. [place] [id number] with unremarkable BNP. Lactic acid was elevated at 2.7, troponin came back negative, EKG was showing sinus tachycardia with no ST segment abnormalities. Patient was initially placed on 4 L of oxygen through nasal cannula and was started on IV antibiotics and steroids. Initial chest x-ray was ordered showing a right upper lung opacity. Upon my examination, there is a erythematous elevated lump located in the right upper chest the level of the clavicle that is erythematous and warm and tender to palpation. We will order a CT scan of the chest without contrast to determine if the opacity seen in the x-ray is actually inside or outside the lung. Patient was seen and examined on the bedside. He is alert, oriented x3. Mentioned feeling better and complaint of mild pain and tenderness in the neck and upper chest especially during palpation. He is on 2 L/min oxygen with saturation 97%. Last 12 hours to DOTTIE drains in total collection 45 mL. Wound cultures are still growing out and ruling out pathogens no specific organism grown until this time. We will keep our current antibiotic therapy of vancomycin, meropenem and clindamycin. Patient has no additional concerns at this point. Objective vital signs Vital Sign Date Time Temp Pulse Resp B/P (MAP) Pulse Ox O2 Delivery O2 Flow Rate FiO2 01/31/25 09:01 98.6 80 18 128/77 (94) 99 98.6 01/31/25 08:00 Room Air* 2 N/A Nasal Cannula* Total Intake and Output 01/30/25 01/30/25 01/31/25 15:00 23:00 07:00 Intake Total 100 ml 590 ml 400 ml Output Total 90 ml 45 ml Balance 10 ml 590 ml 355 ml medications Current Medications Medications Dose Ordered Sig/Sobeida Route Start Time Stop Time Status Last Admin Dose Admin Vancomycin HCl 0 ml @ 0 mls/hr UD IV 01/23/25 16:15 Acetaminophen 650 mg Q6HP PRN PO 01/23/25 16:15 Acetaminophen/ Hydrocodone Bitart 1 tab Q4HP PRN PO 01/23/25 16:15 01/30/25 21:33 1 TAB Clindamycin Phosphate 50 ml @ 50 mls/hr Q8HR IV 01/24/25 06:00 01/31/25 06:43 50 MLS/HR Meropenem 50 ml @ 17 mls/hr Q8H IV 01/24/25 04:00 01/31/25 03:45 17 MLS/HR Baclofen 5 mg DAILY PO 01/23/25 23:45 01/31/25 08:10 5 MG Albuterol 2.5 mg Q6HR NEB 01/25/25 06:00 01/31/25 07:10 2.5 MG Ipratropium [place] 0.5 mg Q6HR NEB 01/25/25 06:00 01/31/25 07:11 0.5 MG Vancomycin HCl 100 ml @ 100 mls/hr Q8H IV 01/29/25 01:00 01/31/25 08:12 100 MLS/HR Furosemide 20 mg DAILY IV 01/29/25 10:00 01/31/25 08:11 20 MG Enteral Nutritional Formula 240 ml BIDWM PO 01/29/25 18:00 01/31/25 08:17 240 ML Examination Physical Examination General: Patient alert and oriented in person, place and time. Patient following commands. HEENT: Normocephalic, atraumatic, moist mucous membranes Respiratory/pulmonary: Clear lungs bilaterally, no associated crackles or wheezes. on 1Lof O2 through NC Cardiovascular: Normal heart sounds S1 and S2 with no associated murmurs. S/P Incision and drainage of abscess. There is very mild tenderness to palpation on the right upper chest with a DOTTIE drain on place draining 25 cc of serosanguineous fluid in last 12hours. the Uresil chest wall drain is draining 20 cc in the last 24hrs. Abdomen: Abdomen nondistended, there is no pain to palpation in any of the abdominal quadrants, no palpable masses. Extremities: There is no peripheral edema present at the lower extremities. Peripheral Pulses: 3+ Radial (R). 3+ Radial (L). 3+ Dorsalis pedis (R). 3+ Dorsalis pedis(L) Skin: No rashes or pruritus, there is no sacral edema present at this time. Neurological: Intact cranial nerves with no focal neurologic deficits laboratory and microbiology Laboratory Tests 01/31/25 05:50 Test 01/31/25 05:50 Range/Units Serum Glucose 96 74-106 mg/dL Microbiology Date/Time Source Procedure Growth Status 01/28/25 10:30 Aspirate Gram Stain - Final Resulted 01/28/25 10:30 Aspirate Body Fluid Culture - Preliminary Resulted 01/23/25 17:35 Voided Urine Urine Culture - Final Complete 01/23/25 12:45 Blood Blood Culture - Final NO GROWTH AFTER 5 DAYS OF INCUBATION. Complete Labs and/or images reviewed: Labs reviewed by me, Image(s) reviewed by me Problem List/Assessment/Plan Problem List/Assessment/Plan Assessment/Plan Acute Hypoxic respiratory failure likely due to Gram-positive/Gram-negative pneumonia Acute Right upper chest cellulitis with Abscess Ruled out ACS Sepsis sec to above -we will chest x-ray is showing a right upper lobe opacity, not clear if it is actually inside the lung or it could be an abscess outside the lung. -Continue IV vancomycin -Continue Clindamycin -Continue Meropenem -Ordered CT scan of the chest with contrast which showed soft tissue edema of the right chest wall with complex multiloculated fluid collection with multiple foci of air extending from the right lower neck soft tissue to the right anterior upper chest musculature. -lactic acid was 2.7 -EKG showed sinus tachycardia with no ST segment elevation or depression. -troponin came back normal -echo showed an LVEF of 65% with normal cardiac valves and no pericardial effusion. -currently on 2 L of oxygen through nasal cannula saturating 97% -ordered urine and blood cultures, blood cultures showing no growth at this time. -ordered sputum culture and MRSA nares -respiratory therapy with albuterol and ipratropium med nebs q.6 -surgery on board, patient refused surgery. -surgery perform incision and drainage of right upper chest abscess and placement of a DOTTIE drainage which is draining approximately 25 cc in the last 12 hours -new CT scan of the chest with contrast showed persistent multi located fluid collection in the anterior right chest wall with drainage catheter in Situ. There is also severe emphysema with bilateral lower lobe compressive atelectasis and small bilateral pleural effusion. -Interventional radiologist placed a Uresil chest wall drain which is draining 20 cc in the last 24 hrs. -Cultures still pending, once cultures are back will deescalate antibiotics. 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 Davies Plan discussed with: Patient, Other (RN) Dietary Evaluation Review Comments: Encourage and monitor PO intake to meet 75% of his needs Expected Outcomes/Goals: gradual wt gain, healed abscess incision site. Addendum Addendum Addendum I was physically present for the chapa portions of the service provided to patient by THE RESIDENT. I have reviewed the documentation, discussed the case with resident and agree with the resident's documentation except as noted. Also the patient's clinical case was discussed with the patient's nurse. This medical document was created using an electronic medical record system with computerized dictation system. Although this document has been carefully reviewed, there might still be some phonetic and typographical errors. These areas are purely typographical due to imperfections of the software programs, and do not reflect any compromise in the patient's medical care. Late signature. Date of Service: Jan 31, 2025 Billing Provider: SHEREE DAVIES MD Common Visit Codes: [id number] INP/OBS CARE(HIGH) Secondary Visit Codes: [id number] CARE PLAN 30 MINUTES (20 minutes) ALEXANDRA JOVEL RESIDENT Jan 31, 2025 10:11 SHEREE DAVIES MD Feb 01, 2025 16:58
[2025-01-31] MEDS: ONDANSETRON HCL 4 MG/2 ML VIAL IV PRN (15:17)
[2025-02-01] VITALS (19 sets, daily range): BP systolic 135–159; BP diastolic 70–91; PULSE 58–120; RESP 16–22; TEMP 97.5–98.3; O2SAT 95–100
--- NOTE | 2025-02-01 11:09 | ECG ---
[facility] Test Date: 2025-01-31 Test Time: 22:22:24 Pat Name: AVRIL JENKINS Department: Respiratoy Room: 0218 B Gender: M Lay Out Inspector: VAHID : [id number] Requested By: MICHAEL LYONS Order Number: [id number] Reading MD: Thom Hernandez Measurements Intervals [place] Rate: 114 P: 73 [place]: 150 QRS: 6 QRSD: 77 T: 70 QT: 327 QTc: 451 Interpretive Statements Sinus tachycardia Electronically Signed On 02-01-2025 20:13:00 PDT by Thom Hernandez Please click the below link to view image of tracing.
[2025-02-01 11:12] LABS: Basophils # (auto) 0 10 ^3/uL (0-0.2); Basophils % (auto) 0.4 % (0.0-2.0); Eosinophils # (auto) 0 10 ^3/uL (0-0.8); Eosinophils % (auto) 0.1 % (0.0-7.0); Hematocrit 36.9 % (41.0-53.0); Hemoglobin 12.9 g/dL (13.5-17.5); Lymphocytes # (auto) 0.8 10 ^3/uL (0.4-5.4); Lymphocytes % (auto) 9.1 % (10.0-50.0); Mean Corpuscular Hemoglobin 35.6 pg (28.0-32.0); Mean Corpuscular Volume 101.7 fL (80.0-100.0); Monocytes # (auto) 0.4 10 ^3/uL (0-1.3); Neutrophils # (auto) 7.5 10 ^3/uL (1.6-8.6); Neutrophils % (auto) 85.4 % (37.0-80.0); Platelet Count (auto) 450 10^3/uL (140-450); Red Blood Cells 3.63 10^6/uL (4.5-5.90); Red Cell Distribution Width 15.7 % (11.8-14.3); White Blood Cell 8.7 10^3/uL (4.4-10.8)
[2025-02-01 11:15] LABS: Potassium 3.8 mmol/L (3.5-5.1)
[2025-02-01 11:16] LABS: Anion Gap 8 (5-15); Calcium 9.5 mg/dL (8.7-10.4); Carbon Dioxide 28 mmol/L (20-31); Chloride 97 mmol/L (98-107); Sodium 133 mmol/L (136-145)
[2025-02-01 11:21] LABS: BUN/Creatinine Ratio 17.5 (10.0-20.0); Blood Urea Nitrogen 10 mg/dL (9-23)
[2025-02-01 11:25] LABS: Glucose 110 mg/dL (74-106)
--- NOTE | 2025-02-01 12:54 | DVHPN2 ---
Subjective Still continue complaining of exertional shortness of breath and chest wall pain Reviewed: Care Plan, H&P, Labs, Medications, Previous Orders, Radiology, Other (Consultation) Changes from previous H/P or p: No Changes Objective Vitals Vital Signs Date Time Temp Pulse Resp B/P (MAP) Pulse Ox O2 Delivery O2 Flow Rate FiO2 02/01/25 11:47 102 16 100 02/01/25 10:28 140/80 02/01/25 10:00 2.0 02/01/25 10:00 Nasal Cannula* 28 02/01/25 09:00 98.1 98.1 Intake/Output Intake and Output 02/01/25 07:00 Intake Total 1300 ml Output Total 20 ml Balance 1280 ml Intake Oral 800 ml IV Total 500 ml Other 20 ml # Voids 3 # Bowel Movements 1 General Appearance: Alert, Oriented X3, Cooperative, No acute distress HEENT: Atraumatic Neck: Supple Lungs: Other (Decreased air entry right side; right upper chest with DOTTIE drain with serosanguineous fluid) Chest/Breasts: Other (Right-sided chest tenderness) Cardiovascular: Regular rate, Normal S1, Normal S2, No murmurs Abdomen: Normal bowel sounds, Soft, No tenderness Neuro: Normal speech, Cranial nerves 3-12 NL Psych/Mental Status: Mental status NL, Mood NL Medications Current Medications Medications Dose Ordered Sig/Sobeida Route Start Time Stop Time Status Last Admin Dose Admin Vancomycin HCl 0 ml @ 0 mls/hr UD IV 01/23/25 16:15 Acetaminophen 650 mg Q6HP PRN PO 01/23/25 16:15 Acetaminophen/ Hydrocodone Bitart 1 tab Q4HP PRN PO 01/23/25 16:15 01/31/25 22:35 1 TAB Clindamycin Phosphate 50 ml @ 50 mls/hr Q8HR IV 01/24/25 06:00 02/01/25 06:02 50 MLS/HR Meropenem 50 ml @ 17 mls/hr Q8H IV 01/24/25 04:00 02/01/25 12:15 17 MLS/HR Baclofen 5 mg DAILY PO 01/23/25 23:45 02/01/25 10:28 5 MG Albuterol 2.5 mg Q6HR NEB 01/25/25 06:00 02/01/25 11:37 2.5 MG Ipratropium [place] 0.5 mg Q6HR NEB 01/25/25 06:00 02/01/25 11:37 0.5 MG Vancomycin HCl 100 ml @ 100 mls/hr Q8H IV 01/29/25 01:00 02/01/25 10:28 100 MLS/HR Furosemide 20 mg DAILY IV 01/29/25 10:00 02/01/25 10:28 20 MG Enteral Nutritional Formula 240 ml BIDWM PO 01/29/25 18:00 02/01/25 08:00 240 ML Ondansetron HCl 4 mg Q6HPRN PRN IV 01/31/25 15:15 02/01/25 05:57 4 MG Metoclopramide HCl 5 mg Q8HR IV 02/01/25 14:00 Laboratory Results Laboratory Tests 02/01/25 10:07 Chemistry Test 02/01/25 10:07 Calcium Level 9.5 mg/dL (8.7-10.4) Urinalysis Test 01/23/25 17:35 Urine Color Dark-yellow (Yellow) Urine Clarity Turbid (Clear) H Urine pH 5.5 (5.0-9.0) Urine Specific [place] 1.020 (1.001-1.035) Urine Protein Trace (Negative) H Urine Ketones Negative (Negative) Urine Blood 1+ /uL (Negative) H Urine Nitrite Negative (Negative) Urine Bilirubin 1+ (Negative) Urine Urobilinogen Over mg/dL (Negative) Urine Leukocyte Esterase 1+ /uL (Negative) Urine RBC 3 /hpf (0 - 3) Urine Microscopic WBC 16 /HPF (0-3) H Urine Squamous Epithelial Cells Few /hpf (<5) Urine Bacteria Few /hpf (None Seen) H Urine Mucus Few (None Seen) Urine Yeast (Budding) Occasional /hpf (None Urine Glucose Normal mg/dL (Normal) Microbiology Microbiology Date/Time Source Procedure Growth Status 01/28/25 10:30 Aspirate Gram Stain - Final Complete 01/28/25 10:30 Aspirate Body Fluid Culture - Final Complete 01/23/25 17:35 Voided Urine Urine Culture - Final Complete 01/23/25 12:45 Blood Blood Culture - Final NO GROWTH AFTER 5 DAYS OF INCUBATION. Complete Labs and/or images reviewed: Labs reviewed by me, Image(s) reviewed by me Assessment/Plan Assessment/Plan Covering: Acute Hypoxic respiratory failure likely due to Gram-positive/Gram-negative pneumonia Acute right upper chest wall cellulitis with right subclavicular abscess status post incision and drainage with DOTTIE drain in place Chest pain: Ruled out ACS Sepsis with lactic acidosis, leukocytosis and thrombocytosis due to above Suspected GEETA due to vasomotor nephropathy in the setting of sepsis Hypertensive heart disease without heart failure Macrocytic anemia Continue oxygen therapy as indicated Continue IV antibiotics Reviewed available imaging studies including chest x-rays Reviewed available cultures; final cultures from wound still pending Continue pain management as indicated Continue antihypertensive medication and adjust accordingly Continue monitoring Late Entry. This medical document was created using an electronic medical record system with computerized dictation system. Although this document has been carefully reviewed, there might still be some phonetic and typographical errors. These areas are purely typographical due to imperfections of the software programs, and do not reflect any compromise in the patient's medical care. Plan discussed with: Patient, Other (Nurse) My Orders Orders - SHEREE DAVIES MD Procedure Category Date Status Time Ondansetron Hcl PHA 01/31/25 In Process (Zofran) 15:15 Metoclopramide PHA 02/01/25 In Process Injection (Reglan 14:00 Date of Service: Feb 01, 2025 Billing Provider: SHEREE DAVIES MD Common Visit Codes: [id number] INP/OBS CARE(HIGH) SHEREE DAVIES MD Feb 01, 2025 12:54
[2025-02-01] MEDS: METOCLOPRAMIDE HCL 5MG/ml INJ 2ml VIAL IV SCH (13:41)
[2025-02-02] VITALS (18 sets, daily range): BP systolic 120–169; BP diastolic 61–94; PULSE 75–138; RESP 16–20; TEMP 97.7–99; O2SAT 89–100
[2025-02-02] MEDS: MORPHINE SULFATE INJ 2 MG/ml SYRG IV ONE (03:04)
--- NOTE | 2025-02-02 08:38 | ECG ---
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
[2025-02-02 08:56] LABS: Potassium 3.6 mmol/L (3.5-5.1)
[2025-02-02 08:57] LABS: Anion Gap 11 (5-15); Calcium 9.1 mg/dL (8.7-10.4); Carbon Dioxide 25 mmol/L (20-31); Chloride 95 mmol/L (98-107); Sodium 131 mmol/L (136-145)
[2025-02-02 09:02] LABS: BUN/Creatinine Ratio 18.9 (10.0-20.0); Blood Urea Nitrogen 10 mg/dL (9-23); Glucose 96 mg/dL (74-106)
[2025-02-02 10:11] LABS: Basophils # (auto) 0 10 ^3/uL (0-0.2); Basophils % (auto) 0.2 % (0.0-2.0); Eosinophils # (auto) 0 10 ^3/uL (0-0.8); Hematocrit 37.8 % (41.0-53.0); Hemoglobin 13.2 g/dL (13.5-17.5); Lymphocytes # (auto) 1.1 10 ^3/uL (0.4-5.4); Lymphocytes % (auto) 12.3 % (10.0-50.0); Mean Corpuscular Hemoglobin 35.7 pg (28.0-32.0); Monocytes # (auto) 0.5 10 ^3/uL (0-1.3); Monocytes % (auto) 5.3 % (0.0-12.0); Neutrophils # (auto) 7.2 10 ^3/uL (1.6-8.6); Neutrophils % (auto) 82.2 % (37.0-80.0); Platelet Count (auto) 402 10^3/uL (140-450); Red Cell Distribution Width 15.5 % (11.8-14.3); White Blood Cell 8.8 10^3/uL (4.4-10.8)
--- NOTE | 2025-02-02 10:19 | DVHPNRES ---
Progress Note Date Seen: Feb 02, 2025 Resident Creating Document: ED[facility] WU RESIDENT Has the PT tested + for MRSA If YES, has PT been informed?: No Medical Necessity Reason Pt with a Central, PICC or Fol: No Subjective Review of Systems This is a 74-year-old male with past medical history of hypertension and chronic back pain. Patient presented to the ED due to chronic cough associated with shortness of breaths and right upper chest tenderness. Patient states that the cough started two weeks ago initially was not associated with tenderness for shortness of breaths. Patient states that after a couple of days of chronic cough he started developing right upper chest tenderness associated with shortness of breaths and sputum production that was yellowish in color. Patient also states that five days ago he started developing a lump in the right upper chest which is erythematous, warmth to palpation and very tender to soft touch as well. Patient reports decreasing appetite and has lost a couple of lb in the last week but when asked about weight loss in the past six months the patient denied. The patient also reported recent night sweats but denied fever or chills. [place] [address] with unremarkable BNP. Lactic acid was elevated at 2.7, troponins came back negative, EKG was showing sinus tachycardia with no ST segment abnormalities. Patient was initially placed on 4 L of oxygen through nasal cannula and was started on IV antibiotics and steroids. Initial chest x-ray was ordered showing a right upper lung opacity. Upon my examination, there is a erythematous elevated lump located in the right upper chest the level of the clavicle that is erythematous and warm and tender to palpation. We will order a CT scan of the chest without contrast to determine if the opacity seen in the x-ray is actually inside or outside the lung. Patient seen and examined at bedside. Patient is alert and oriented in person, place and time. DOTTIE drainage is draining 5 cc in the last 12 hours and chest drain is draining 20 cc in the last 12 hours. We will discontinue clindamycin and we will continue the patient on vancomycin and meropenem at this time. Spoke with surgery team which recommended keeping the patient for another day to irrigate DOTTIE drain. We will put physical therapy, incentive spirometry which patient has been doing consistently. Patient denies chest pain, shortness of breath or any complaint at this time. Overnight, the patient had an episode of chest pain but EKG was unremarkable and troponins were negative. Patient has no additional complaints at this time. ROS Constitutional: Denies weight loss, fever and chills. HEENT: Denies changes in vision and hearing. Respiratory: Denies shortness of breath and cough Cardiovascular: Denies chest discomfort or palpitations GI: Denies abdominal pain, nausea, vomiting and diarrhea. : Denies dysuria and urinary frequency. Musculoskeletal: Denies myalgias and joint pain Skin: Denies rash and pruritus. Neurological: Denies dizziness, headache, vision or hearing problems Objective vital signs Vital Sign Date Time Temp Pulse Resp B/P (MAP) Pulse Ox O2 Delivery O2 Flow Rate FiO2 02/02/25 05:43 110 16 100 02/02/25 05:37 Nasal Cannula 3.0 02/02/25 05:37 32 02/02/25 05:00 98.0 143/94 (110) 98.0 Total Intake and Output 02/01/25 02/01/25 02/02/25 15:00 23:00 07:00 Intake Total 250 ml 100 ml 500 ml Output Total 30 ml Balance 250 ml 70 ml 500 ml medications Current Medications Medications Dose Ordered Sig/Sobeida Route Start Time Stop Time Status Last Admin Dose Admin Vancomycin HCl 0 ml @ 0 mls/hr UD IV 01/23/25 16:15 Acetaminophen 650 mg Q6HP PRN PO 01/23/25 16:15 Meropenem 50 ml @ 17 mls/hr Q8H IV 01/24/25 04:00 02/02/25 04:25 17 MLS/HR Baclofen 5 mg DAILY PO 01/23/25 23:45 02/01/25 10:28 5 MG Albuterol 2.5 mg Q6HR NEB 01/25/25 06:00 02/02/25 05:37 2.5 MG Ipratropium [place] 0.5 mg Q6HR NEB 01/25/25 06:00 02/02/25 05:37 0.5 MG Vancomycin HCl 100 ml @ 100 mls/hr Q8H IV 01/29/25 01:00 02/02/25 00:58 100 MLS/HR Furosemide 20 mg DAILY IV 01/29/25 10:00 02/01/25 10:28 20 MG Enteral Nutritional Formula 240 ml BIDWM PO 01/29/25 18:00 02/01/25 18:12 240 ML Ondansetron HCl 4 mg Q6HPRN PRN IV 01/31/25 15:15 02/01/25 20:50 4 MG Metoclopramide HCl 5 mg Q8HR IV 02/01/25 14:00 02/02/25 06:00 5 MG Examination Physical Examination General: Patient alert and oriented in person, place and time. Patient following commands. HEENT: Normocephalic, atraumatic, moist mucous membranes Respiratory/pulmonary: Clear lungs bilaterally, no associated crackles or wheezes. on 2Lof O2 through NC Cardiovascular: Normal heart sounds S1 and S2 with no associated murmurs. S/P Incision and drainage of abscess. There is very mild tenderness to palpation on the right upper chest with a DOTTIE drain on place draining 5cc of serosanguineous fluid in last 12hours. the uresil chest wall drain is draining 20cc in the last 24hrs. Abdomen: Abdomen nondistended, there is no pain to palpation in any of the abdominal quadrants, no palpable masses. Extremities: There is no peripheral edema present at the lower extremities. Peripheral Pulses: 3+ Radial (R). 3+ Radial (L). 3+ Dorsalis pedis (R). 3+ Dorsalis pedis(L) Skin: No rashes or pruritus, there is no sacral edema present at this time. Neurological: Intact cranial nerves with no focal neurologic deficits laboratory and microbiology Laboratory Tests 02/02/25 06:57 Test 02/02/25 06:57 Range/Units Serum Glucose 96 74-106 mg/dL Microbiology Date/Time Source Procedure Growth Status 01/28/25 10:30 Aspirate Gram Stain - Final Complete 01/28/25 10:30 Aspirate Body Fluid Culture - Final Complete 01/23/25 17:35 Voided Urine Urine Culture - Final Complete 01/23/25 12:45 Blood Blood Culture - Final NO GROWTH AFTER 5 DAYS OF INCUBATION. Complete Labs and/or images reviewed: Labs reviewed by me, Image(s) reviewed by me Problem List/Assessment/Plan Problem List/Assessment/Plan Assessment/Plan Acute Hypoxic respiratory failure likely due to Gram-positive/Gram-negative pneumonia Acute Right upper chest cellulitis with Abscess Ruled out ACS Sepsis sec to above -we will chest x-ray is showing a right upper lobe opacity, not clear if it is actually inside the lung or it could be an abscess outside the lung. -Continue IV vancomycin -Discontinue Clindamycin -Continue Meropenem -Ordered CT scan of the chest with contrast which showed soft tissue edema of the right chest wall with complex multiloculated fluid collection with multiple foci of air extending from the right lower neck soft tissue to the right anterior upper chest musculature. -lactic acid was 2.7 -EKG showed sinus tachycardia with no ST segment elevation or depression. -troponins came back normal -echo showed an LVEF of 65% with normal cardiac valves and no pericardial effusion. -currently on 2 L of oxygen through nasal cannula saturating 97% -ordered urine and blood cultures, blood cultures showing no growth at this time. -ordered sputum culture and MRSA nares -respiratory therapy with albuterol and ipratropium med nebs q.6 -surgery on board, patient refused surgery. -surgery perform incision and drainage of right upper chest abscess and placement of a DOTTIE drainage which is draining approximately 5 cc in the last 12 hours -new CT scan of the chest with contrast showed persistent multi located fluid collection in the anterior right chest wall with drainage catheter in Situ. There is also severe emphysema with bilateral lower lobe compressive atelectasis and small bilateral pleural effusion. -Interventional radiologist placed a uresil chest wall drain which is draining 20cc in the last 24 hrs. -Cultures are showing no growth. -Will irrigate DOTTIE drains today once again. Primary hypertension -BP currently on lower side -Monitor BP and add meds as needed chronic back pain -continue baclofen 5mg daily Severe protein malnutrition -Consult pm technician Plan discussed with Dr. Davies Plan discussed with: Patient, Other (Nurse) My Orders My Orders Orders - EDWARD WU RESIDENT Procedure Category Date Status Time Complete Blood Count LAB 02/02/25 In Process 04:00 Vancomycin Per PRINCE 02/01/25 In Process Pharmacy Protoc 15:26 Dietary Evaluation Review Comments: Encourage and monitor PO intake to meet 75% of his needs Expected Outcomes/Goals: gradual wt gain, healed abscess incision site. Addendum Addendum Addendum I was physically present for the chapa portions of the service provided to patient by THE RESIDENT. I have reviewed the documentation, discussed the case with resident and agree with the resident's documentation except as noted. Also the patient's clinical case was discussed with the patient's nurse. This medical document was created using an electronic medical record system with computerized dictation system. Although this document has been carefully reviewed, there might still be some phonetic and typographical errors. These areas are purely typographical due to imperfections of the software programs, and do not reflect any compromise in the patient's medical care. Late signature. Date of Service: Feb 02, 2025 Billing Provider: SHEREE DAVIES MD Common Visit Codes: [id number] INP/OBS CARE(HIGH) EDWARD WU RESIDENT Feb 02, 2025 10:18 SHEREE DAVIES MD Feb 04, 2025 05:43
--- NOTE | 2025-02-02 10:20 | DVHPN2 ---
Subjective Date Seen: Feb 02, 2025 Post op day Post op day: 0 Patient reports: No new complaints Nursing reports: No new complaints General: Normal HNT: Normal Cardiovascular: Normal Respiratory: Normal Gastrointestinal: Normal Genitourinary: Normal Musculoskeletal: Normal Neurological: Normal Objective Vitals Vital Sign Date Time Temp Pulse Resp B/P (MAP) Pulse Ox O2 Delivery O2 Flow Rate FiO2 02/02/25 05:43 110 16 100 02/02/25 05:37 Nasal Cannula 3.0 02/02/25 05:37 32 02/02/25 05:00 98.0 143/94 (110) 98.0 Total Intake and Output 02/01/25 02/01/25 02/02/25 15:00 23:00 07:00 Intake Total 250 ml 100 ml 500 ml Output Total 30 ml Balance 250 ml 70 ml 500 ml Medications Current Medications Medications Dose Ordered Sig/Sobeida Route Start Time Stop Time Status Last Admin Dose Admin Vancomycin HCl 0 ml @ 0 mls/hr UD IV 01/23/25 16:15 Acetaminophen 650 mg Q6HP PRN PO 01/23/25 16:15 Meropenem 50 ml @ 17 mls/hr Q8H IV 01/24/25 04:00 02/02/25 04:25 17 MLS/HR Baclofen 5 mg DAILY PO 01/23/25 23:45 02/01/25 10:28 5 MG Albuterol 2.5 mg Q6HR NEB 01/25/25 06:00 02/02/25 05:37 2.5 MG Ipratropium [place] 0.5 mg Q6HR NEB 01/25/25 06:00 02/02/25 05:37 0.5 MG Vancomycin HCl 100 ml @ 100 mls/hr Q8H IV 01/29/25 01:00 02/02/25 00:58 100 MLS/HR Furosemide 20 mg DAILY IV 01/29/25 10:00 02/01/25 10:28 20 MG Enteral Nutritional Formula 240 ml BIDWM PO 01/29/25 18:00 02/01/25 18:12 240 ML Ondansetron HCl 4 mg Q6HPRN PRN IV 01/31/25 15:15 02/01/25 20:50 4 MG Metoclopramide HCl 5 mg Q8HR IV 02/01/25 14:00 02/02/25 06:00 5 MG General: Normal, Well developed Head/Eyes: Normal ENT: Normal Neck: Normal, Supple Musculoskeletal: Normal Extremities: Normal, No clubbing, No peripheral edema Skin: Normal Labs and Microbiology Laboratory Tests 02/02/25 09:28 02/02/25 06:57 Test 02/02/25 06:57 Range/Units Serum Glucose 96 74-106 mg/dL Ass/Plan Labs and/or images reviewed: Labs reviewed by me, Image(s) reviewed by me Problem List Assessment/Plan Acute Hypoxic respiratory failure likely due to Gram-positive/Gram-negative pneumonia Acute Right upper chest cellulitis with Abscess Ruled out ACS Sepsis sec to above -we will chest x-ray is showing a right upper lobe opacity, not clear if it is actually inside the lung or it could be an abscess outside the lung. -Continue IV vancomycin -Discontinue Clindamycin -Continue Meropenem -Ordered CT scan of the chest with contrast which showed soft tissue edema of the right chest wall with complex multiloculated fluid collection with multiple foci of air extending from the right lower neck soft tissue to the right anterior upper chest musculature. -lactic acid was 2.7 -EKG showed sinus tachycardia with no ST segment elevation or depression. -troponins came back normal -echo showed an LVEF of 65% with normal cardiac valves and no pericardial effusion. -currently on 2 L of oxygen through nasal cannula saturating 97% -ordered urine and blood cultures, blood cultures showing no growth at this time. -ordered sputum culture and MRSA nares -respiratory therapy with albuterol and ipratropium med nebs q.6 -surgery on board, patient refused surgery. -surgery perform incision and drainage of right upper chest abscess and placement of a DOTTIE drainage which is draining approximately 5 cc in the last 12 hours -new CT scan of the chest with contrast showed persistent multi located fluid collection in the anterior right chest wall with drainage catheter in Situ. There is also severe emphysema with bilateral lower lobe compressive atelectasis and small bilateral pleural effusion. -Interventional radiologist placed a uresil chest wall drain which is draining 20cc in the last 24 hrs. -Cultures are showing no growth. -Will irrigate DOTTIE drains today once again. Primary hypertension -BP currently on lower side -Monitor BP and add meds as needed chronic back pain -continue baclofen 5mg daily Severe protein malnutrition -Consult traveling sales representative Goals of care discussed with the patient and son at bedside for >25min, FULL CODE Plan discussed with Dr. Gutierrez Assessment/Plan status post incision and drainage of right upper chest abscess area non tender to palpation , per patient no more pain DOTTIE drain with purulent drainage Plan: continue IV antibiotics irrigate drain 3 times a day with sterile saline 02/02/25 status post incision and drainage of right upper chest abscess area non tender to palpation , per patient no more pain DOTTIE drain cloudy drainage improving Plan: continue IV antibiotics irrigate DOTTIE drain 3 times a day with sterile saline do not Irrigate IR drain Prognosis: Excellent Plan discussed with patient, Dr. Yang Visit Coding Surgery Date of Service if different f: Feb 02, 2025 Billing Provider: PORFIRIO YANG MD Surgery Visit Codes: [id number] INP/OBS CARE(HIGH) KARTHIK BURDICK NP Feb 02, 2025 10:20
[2025-02-02] MEDS: LEVALBUTEROL HCL 1.25 MG/3 ML NEB NEB SCH (19:16)
[2025-02-02] MEDS: ACETAMINOPHEN 325 MG TAB PO PRN (20:42)
[2025-02-03] VITALS (13 sets, daily range): BP systolic 111–150; BP diastolic 63–80; PULSE 120–133; RESP 16–18; TEMP 98.1–98.9; O2SAT 95–100
[2025-02-03 07:36] LABS: Potassium 3.8 mmol/L (3.5-5.1)
[2025-02-03 07:37] LABS: Anion Gap 8 (5-15); Calcium 9.1 mg/dL (8.7-10.4); Carbon Dioxide 31 mmol/L (20-31)
[2025-02-03 07:41] LABS: Chloride 95 mmol/L (98-107); Sodium 134 mmol/L (136-145)
[2025-02-03 07:42] LABS: BUN/Creatinine Ratio 22.6 (10.0-20.0); Blood Urea Nitrogen 12 mg/dL (9-23); Glucose 95 mg/dL (74-106)
[2025-02-03] MEDS ORDERED: BACDST PO (09:54)
[2025-02-03] MEDS ORDERED: AUG875T PO (09:54)
--- NOTE | 2025-02-03 09:59 | ECG ---
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
--- NOTE | 2025-02-03 10:12 | DVHDSRES ---
Discharge Summary Date of Admission Resident Creating Document: EDWARD WU RESIDENT Jan 23, 2025 at 15:51 Date of Discharge: Feb 03, 2025 Admitting Diagnosis Right upper sided chest pain Wounds: Patient has two drains placed in the right upper chest to drain fluid collection/abscess of the right upper chest Labs/Diagnostic Data: Laboratory Results Test 02/03/25 07:15 02/02/25 13:10 02/02/25 09:28 02/02/25 06:57 Sodium Level 134 mmol/L (136-145) Potassium Level 3.8 mmol/L (3.5-5.1) Chloride Level 95 mmol/L (98-107) Carbon Dioxide Level 31 mmol/L (20-31) Anion Gap 8 (5-15) Blood Urea Nitrogen 12 mg/dL (9-23) Creatinine 0.53 mg/dL (0.700-1.30) Glomerular Filtration Rate Calc 104 mL/min (>90) BUN/Creatinine Ratio 22.6 (10.0-20.0) Serum Glucose 95 mg/dL (74-106) Calcium Level 9.1 mg/dL (8.7-10.4) Troponin I High Sensitivity 11 ng/L (</=54) White Blood Count 8.8 10^3/uL (4.4-10.8) Red Blood Count 3.70 10^6/uL (4.5-5.90) Hemoglobin 13.2 g/dL (13.5-17.5) Hematocrit 37.8 % (41.0-53.0) Mean Corpuscular Volume 102.0 fL (80.0-100.0) Mean Corpuscular Hemoglobin 35.7 pg (28.0-32.0) Mean Corpuscular Hemoglobin Concent 35.0 g/dL (32.0-36.0) Red Cell Distribution Width 15.5 % (11.8-14.3) Platelet Count 402 10^3/uL (140-450) Mean Platelet Volume 6.2 fL (6.9-10.8) Neutrophils (%) (Auto) 82.2 % (37.0-80.0) Lymphocytes (%) (Auto) 12.3 % (10.0-50.0) Monocytes (%) (Auto) 5.3 % (0.0-12.0) Eosinophils (%) (Auto) 0.0 % (0.0-7.0) Basophils (%) (Auto) 0.2 % (0.0-2.0) Neutrophils # (Auto) 7.2 10 ^3/uL (1.6-8.6) Lymphocytes # (Auto) 1.1 10 ^3/uL (0.4-5.4) Monocytes # (Auto) 0.5 10 ^3/uL (0-1.3) Eosinophils # (Auto) 0 10 ^3/uL (0-0.8) Basophils # (Auto) 0 10 ^3/uL (0-0.2) Nucleated Red Blood Cells 0.0 % Vancomycin Level Trough 16.4 ug/mL (5-10) Test 01/29/25 11:33 01/28/25 05:39 01/25/25 13:25 01/24/25 09:20 Hepatitis A IgM Antibody Negative Hepatitis B Surface Antigen Negative (Negative) Hepatitis B Core IgM Antibody Negative (Negative) Hepatitis C Antibody Negative (Negative) Total Bilirubin 1.0 mg/dL (0.2-1.0) Aspartate Amino Transferase (AST) 51 U/L (13-40) Alanine Aminotransferase (ALT) 51 U/L (7-40) Alkaline Phosphatase 77 U/L (46-116) Total Protein 6.3 g/dL (5.7-8.2) Albumin 3.1 g/dL (3.2-4.8) Lactic Acid Level 1.2 mmol/L (0.4-2.0) Prothrombin Time 14.4 sec (9.3-11.8) Prothrombin Time INR 1.41 (0.9-1.15) Activated Partial Thromboplast Time 21.3 SEC (24.5-34.5) Test 01/24/25 05:56 01/23/25 17:35 01/23/25 12:45 01/23/25 12:34 Random Vancomycin Level 5.4 ug/mL (5-10) Urine Color Dark-yellow (Yellow) Urine Clarity Turbid (Clear) Urine pH 5.5 (5.0-9.0) Urine Specific Beebe 1.020 (1.001-1.035) Urine Protein Trace (Negative) Urine Ketones Negative (Negative) Urine Blood 1+ /uL (Negative) Urine Nitrite Negative (Negative) Urine Bilirubin 1+ (Negative) Urine Urobilinogen Over mg/dL (Negative) Urine Leukocyte Esterase 1+ /uL (Negative) Urine RBC 3 /hpf (0 - 3) Urine Microscopic WBC 16 /HPF (0-3) Urine Squamous Epithelial Cells Few /hpf (<5) Urine Bacteria Few /hpf (None Seen) Urine Mucus Few (None Seen) Urine Yeast (Budding) Occasional /hpf (None Urine Glucose Normal mg/dL (Normal) Urine Opiates Screen Neg (NEGATIVE) Urine Fentanyl Screen Neg (NEGATIVE) Urine Barbiturates Screen Neg (NEGATIVE) Urine Phencyclidine Screen Neg (NEGATIVE) Urine Amphetamines Screen Neg (NEGATIVE) Urine Benzodiazepines Screen Neg (NEGATIVE) Urine Cocaine Screen Neg (NEGATIVE) Urine Cannabinoids Screen Pos (NEGATIVE) Hemoglobin A1c 5.5 % A1C (<5.7) B-Type Natriuretic Peptide 73.15 pg/mL (0-100) Triglycerides Level 127 mg/dL (< 150) Cholesterol Level 105 mg/dL (< 200) LDL Cholesterol 57 mg/dL (< 100) HDL Cholesterol 8 mg/dL (40-59) Blood Gas Specimen Type Arterial Blood Gas Sample Site Left radial Blood Gas Patient Temperature 37.0 Arterial Blood Date Drawn [id number] Arterial Blood pH 7.571 (7.350-7.450) Arterial Blood Partial Pressure CO2 29.4 mmHg (35.0-48.0) Arterial Blood Partial Pressure O2 78.7 mmHg (83.0-108.0) Arterial Blood HCO3 26.4 mmol/L (21.0-28.0) Arterial Blood Oxygen Saturation 96.0 % (94.0-98.0) Arterial Blood Base Excess 5.0 mmol/L (-2.0-3.0) Arterial Blood Oxyhemoglobin 94.8 % (94.0-98.0) Arterial Blood Carboxyhemoglobin 0.9 % (0.5-1.5) Arterial Blood Methemoglobin 0.4 % (0.0-1.5) Tyron Test Yes Blood Gas Total Hemoglobin 13.50 g/dL (13.5-17.5) Blood Gas Liter Flow 4.00 Blood Gas Modality Nasal cannula FiO2 % 36.0 Blood Gas Critical Value Read Back yes Blood Gas Notified Whom lida Campbell md Blood Gas Notified Time [id number] Blood Gas Notified By Other Laboratory Tests 02/03/25 07:15 02/02/25 09:28 Brief Hx & Hospital Course: This is a 74-year-old male with past medical history of hypertension and chronic back pain. Patient presented to the ED due to chronic cough associated with shortness of breaths and right upper chest tenderness. Patient states that the cough started two weeks ago initially was not associated with tenderness for shortness of breaths. Patient states that after a couple of days of chronic cough he started developing right upper chest tenderness associated with shortness of breaths and sputum production that was yellowish in color. Patient also states that five days ago he started developing a lump in the right upper chest which is erythematous, warmth to palpation and very tender to soft touch as well. Patient reports decreasing appetite and has lost a couple of lb in the last week but when asked about weight loss in the past six months the patient denied. The patient also reported recent night sweats but denied fever or chills. Initial labs [place] [address] with unremarkable BNP. Lactic acid was elevated at 2.7, troponins came back negative, EKG was showing sinus tachycardia with no ST segment abnormalities. Patient was initially placed on 4 L of oxygen through nasal cannula and was started on IV antibiotics and steroids. Initial chest x-ray was ordered showing a right upper lung opacity. Upon my examination, there is a erythematous elevated lump located in the right upper chest the level of the clavicle that is erythematous and warm and tender to palpation. CT of the chest with contrast showed a soft tissue edema of the right greater than left chest wall with a complex multiloculated fluid collection with multiple foci of air extending from the right lower neck soft tissue to the right anterior upper chest musculatures with the extension posterior to the right medial clavicle and posterior to the 1st and 2nd ribs. Surgery was consulted for possible intervention but initially patient refused any type of surgery. Surgery proceed and place a DOTTIE drain to drain fluid collection. Initially DOTTIE drain was draining significant amount of fluids but repeated CT was still showing significant fluid collection for which IR was consulted and a chest drain was placed on the right upper side of the chest. At that time chest x-ray confirmed both drains were in place without any pneumothorax or any complication. Patient was during most of the hospitalization stay on IV meropenem, vancomycin and clindamycin. Two days before discharge clindamycin was stopped. Patient was seen and examined at bedside. Patient is currently on room air saturating 95% with no shortness of breath, chest pain or any other significant complaint at this time. We will discharge the patient on Augmentin 875 b.i.d. and Bactrim two tablets daily for 10 additional days. Patient needs to follow up with surgery team in one week for possible drain catheter removals. We explained the importance of following up upon discharge and also close follow-up with his PCP. We will also send him to the discharge Clinic. Patient and son both agreed and understands the plan. ROS Constitutional: Denies weight loss, fever and chills. HEENT: Denies changes in vision and hearing. Respiratory: Denies shortness of breath and cough Cardiovascular: Denies chest discomfort or palpitations GI: Denies abdominal pain, nausea, vomiting and diarrhea. : Denies dysuria and urinary frequency. Musculoskeletal: Denies myalgias and joint pain Skin: Denies rash and pruritus. Neurological: Denies dizziness, headache, vision or hearing problems Physical Examination on the day of discharge: General: Patient alert and oriented in person, place and time. Patient following commands. HEENT: Normocephalic, atraumatic, moist mucous membranes Respiratory/pulmonary: DOTTIE drain in place in right upper chest; no wheezes/crackles Cardiovascular: Normal heart sounds S1 and S2 with no associated murmurs Abdomen: Abdomen nondistended, there is no pain to palpation in any of the abdominal quadrants, no palpable masses. Extremities: There is no peripheral edema present at the lower extremities. Peripheral Pulses: 3+ Radial (R). 3+ Radial (L). 3+ Dorsalis pedis (R). 3+ Dorsalis pedis(L) Skin: No rashes or pruritus, there is no sacral edema present at this time. Neurological: Intact cranial nerves with no focal neurologic deficits Discussed with Dr. Doshis/Reason for consult Surgey and IR for right subclavian care access drainage Operations or Procedures EXAM: XY CHEST PORTABLE Indication: sob Technique: Single frontal view of the chest was obtained Comparison: None FINDINGS: Lines and Tubes: None Lungs: Right upper lung consolidative opacity. Pleura: No effusion. No pneumothorax. Cardiomediastinal contours: Unremarkable Bones: No acute osseous abnormality. IMPRESSION: Right upper lung pneumonia. Procedure: CT CHEST WITHOUT CONTRAST Study Date and Requested Time: 01/23/2025 04:11 PM Streak: RIGHT UPPER CHEST CELLULITIS/ABSCESS VS RUL PNA Comparison: Chest radiograph 01/23/2025 Dose: CTDI: 15.89 mGy DLP: 647.64 mGycm Technique: Multiplanar images obtained through the chest without contrast Findings: Large area of multiloculated complex fluid collection with internal foci of air extending from the visualized right lower neck to the right anterior upper chest wall with extension into the soft tissues posterior to the medial sternum and medial 1st and 2nd ribs. There is mild to moderate soft tissue edema of the partially visualized right lower neck and right-sided chest wall with involvement of the visualized proximal right upper extremity. Minimal soft tissue edema of the left chest wall. There is asymmetric enlargement of the right upper anterior chest wall muscles. There is mass effect on the right thyroid lobe by the collection. Otherwise, the thyroid gland is unremarkable.. Heart size is within normal limits. No evidence of aortic aneurysm. The pulmonary trunk is normal in size. No significant lymphadenopathy. Severe emphysematous changes bilateral lungs. No pneumothorax. Scattered bilateral lung atelectasis and scarring. Trace left-sided pleural effusion. No destructive osseous lesions are noted. Multilevel mild loss of vertebral body height of the thoracic spine which appears chronic. Impression: Soft tissue edema of the kbmyt-pwhveua-dxoy-left chest wall with complex multiloculated fluid collection with multiple foci of air extending from the right lower neck soft tissues to the right anterior upper chest musculatures with extension posterior to the right medial clavicle and posterior to the 1st and 2nd ribs. There is mass effect on the anterior superior right upper lobe by the complex collection without involvement of the lung parenchyma. Severe emphysematous changes of bilateral lungs with scattered areas of atelectasis / scarring. EXAM: XR Chest, 1 View CLINICAL INDICATION: reeval TECHNIQUE: Frontal view of the chest. COMPARISON: XY CHEST PORTABLE on DOS: 01/23/25 FINDINGS: LUNGS AND PLEURAL SPACES: Airspace disease of the right upper lung field could be pneumonia. Underlying mass can not be excluded. No pneumothorax. HEART: Unremarkable. No cardiomegaly. MEDIASTINUM: Unremarkable. Normal mediastinal contour. BONES/JOINTS: Unremarkable. No acute fracture. OTHER FINDINGS: . IMPRESSION: Airspace disease of the right upper lung field could be pneumonia. Underlying mass can not be excluded. Procedure: CT CHEST WITH CONTRAST Reason for study/Clinical History: s/p drainage of right upper chest abscess Comparison Study: Chest CT performed on 01/23/2025 Exam Date: 01/27/2025 03:23 AM Radiation Dose Information: CT Dose: CTDI volume is 14.42 mGy. Dose-length product is 581.0 mGy*cm Contrast: Type of contrast: Omnipaque 300 Contrast inject: 100 cc Contrast wasted:0 TECHNIQUE: CT of the chest was performed with intravenous contrast from the base of the neck to the upper abdomen. Coronal and sagittal reformatted images provided FINDINGS: Chest wall: Interval decrease in size of right anterior chest wall fluid collection containing gas which now measures approximately 8.1 by 2.8 cm previously measuring 8.5 by 4.1 cm. The peripherally enhancing fluid collection is again noted to extend and abut the right thyroid and thyroid cartilage cranially and extend caudally to the level of the 1st and 2nd ribs. Interval placement of a surgical drain in the center of the collection in the anterior right Lower Neck: Right lobe of the thyroid gland is compressed by right deep soft tissue fluid collection. Aorta and Vasculature: Normal caliber of thoracic aorta. No aneurysm or dissection. Lymph Nodes: Multiple subcentimeter mediastinal lymph nodes. Mediastinum: Heart size is normal. There is no pericardial effusion. The esophagus is unremarkable. Central airways are patent Lungs: Bilateral lower lobe compressive atelectasis. Moderate centrilobular emphysema. Pleura: Bilateral small pleural effusions. No pneumothorax. Musculoskeletal: No acute osseous abnormality. Upper abdomen: Limited portions of the upper abdomen are unremarkable. IMPRESSION: 1. Persistent although decreased multiloculated fluid collection in the anterior right chest wall with drainage catheter in situ. 2. Emphysema (severe). Bilateral lower lobe compressive atelectasis. Small bilateral pleural effusions have developed since the prior study from 01/23/2025. EXAM: US LIVER CLINICAL HISTORY: Acute transaminitis TECHNIQUE: Grayscale and limited color flow doppler ultrasound of the right upper quadrant is performed. COMPARISON: None Findings: Liver measures 18.5 cm in length with heterogeneous echotexture and contour. No evidence of focal hepatic lesions or intra- or extrahepatic ductal dilatation. Common bile duct measures 0.4 cm in diameter. Normal hepatopedal flow noted within the portal vein. No perihepatic free fluid is noted. Gallbladder appears within normal limits with gallbladder wall thickness measuring 0.1 cm. No evidence of shadowing calculi, biliary sludge or pericholecystic fluid. Negative sonographic Gómez's sign. Pancreas not well-visualized due to overlying bowel gas. Right kidney measures 10.8 cm with normal contours, echotexture and cortical thickness. Anechoic lesion in the midpole. No evidence of hydronephrosis, calculi, or solid renal lesions. Partially visualized inferior vena cava unremarkable. Impression: 1. No evidence of acute right upper quadrant abnormalities. 2. Hepatomegaly with heterogeneous echotexture, nonspecific. 3. Small right renal cyst. US CHEST ULTRASOUND, HISTORY: POSSIBLE DRAIN PLACEMENT COMPARISON(S): None TECHNICAL DATA: Transverse and longitudinal images are obtained of the chest. FINDING: IMPRESSION(S): There is trace bilateral pleural effusion. CT CT GUIDANCE FOR NEEDLE PLACEME, HISTORY: CHEST DRAIN PLACEMENT COMPARISON: None PROCEDURE: Informed consent was obtained. The patient was placed supine on the CT scanner. IV sedation was administered. The fluid collection was localized under US/CT scan and the overlying skin prepped with chlorhexidine which was allowed to dry and draped in the usual sterile fashion and infiltrated with Xylocaine. Time out was performed. With US/CT guidance, a 19-gauge centesis needle catheter was advanced into the fluid collection. Following aspiration of a small amount of fluid, a 0.035 wire was advanced into the fluid collection. Placement was confirmed with CT scan. After serial dilatation, a 8 Frisian multipurpose pigtail drain was placed into the collection. Approximately 18 cc of purulent fluid was aspirated, with specimen sent for appropriate laboratory/cytology/laboratory and cytology evaluation. The drain was sutured at the skin surface and connected to suction drainage. No immediate complication was noted. Post procedure CT imaging through the drain site was obtained. DLP =4391 mGy-cm. SEDATION: Dr. Maurilio Zelaya was personally responsible for the administration of moderate sedation during the procedure performed, including the use of an independent trained observer who had no other duties during the procedure. The drugs utilized were IV fentanyl and versed (see nursing log for details). The total time of supervision by the attending physician was approximately 45 minutes. FINDINGS: Ultrasound and CT imaging through the chest shows a right apical extra pleural abscess between the 1st and 2nd rib spaces anteriorly. Percutaneous placement of an 8 maori pigtail drainage catheter into the right apical extra pleural abscess between the 1st and 2nd rib spaces with removal of approximately 20 ml of purulent fluid. IMPRESSION: Percutaneous placement of an 8 maori pigtail drainage catheter into the right apical extra-pleural abscess between the 1st and 2nd rib spaces with removal of approximately 20 ml of purulent fluid. PLAN: Routine tube care. CHEST RADIOGRAPH Indication: sob Technique: Single frontal view of the chest was obtained COMPARISON: XY CHEST XRAY 1 VIEW on DOS: 01/27/25, XY CHEST PORTABLE on DOS: 01/23/25 FINDINGS: Lines and Tubes: Right chest tube in satisfactory position. Lungs: Clear Pleura: No effusion. No pneumothorax. Cardiomediastinal contours: Unremarkable Bones: Unremarkable IMPRESSION: Right chest tube in-situ. No appreciable pneumothorax. Condition at Discharge: Stable Final Diagnosis/Problems List Acute Hypoxic respiratory failure likely due to Gram-positive/Gram-negative pneumonia Acute Right upper chest cellulitis with Abscess Ruled out ACS Sepsis sec to above Primary hypertension chronic back pain Severe protein malnutrition Discharge Disposition: Home Discharge Instruct/Medications Diet: Regular Activity: No Restrictions, As Tolerated Follow Up/Referral: F/U with his PCP in 1 week F/U with Surgery in [address] Colindres Medications: Augmentin 875 mg b.i.d. for 10 days Bactrim b.i.d. for 10 days. Discharge Statement: "Patient was advised to return to the ER or call 911 if any headaches, dizziness, shortness of breath, chest pain, abdominal pain, bleeding, fevers, or worsening of medical condition. Patient was counseled about treatment plan, medications, possible side effects, patientverbalized understanding. All questions were answered to the best of my ability. This discharge took greater then 30 minutes in planning, reviewing documentation, counseling the patient, and discussing with other team members." ASSESSMENT ASSESSMENT Assessment Acute Hypoxic respiratory failure likely due to Gram-positive/Gram-negative pneumonia Acute Right upper chest cellulitis with Abscess Ruled out ACS Sepsis sec to above Primary hypertension chronic back pain Severe protein malnutrition Addendum Addendum Addendum I was physically present for the chapa portions of the service provided to patient by THE RESIDENT. I have reviewed the documentation, discussed the case with resident and agree with the resident's documentation except as noted. Also the patient's clinical case was discussed with the patient's nurse. This medical document was created using an electronic medical record system with computerized dictation system. Although this document has been carefully reviewed, there might still be some phonetic and typographical errors. These areas are purely typographical due to imperfections of the software programs, and do not reflect any compromise in the patient's medical care. Late signature. Date of Service: Feb 03, 2025 Billing Provider: SHEREE DAVIES MD Common Visit Codes: 63715-QRZ/OBS DISCH DAY >30min EDWARD WU RESIDENT Feb 03, 2025 10:12 SHEREE DAVIES MD Feb 04, 2025 05:46
--- NOTE | 2025-02-04 11:08 | ECG ---
[facility] Test Date: 2025-02-02 Test Time: 22:16:02 Pat Name: AVRIL JENKINS Department: Respiratoy Room: 0218 B Gender: M Client Relationship Consultant: YORDAN : 1950 Requested By: JOSETTE FARIAS Order Number: [id number] Reading MD: Thom Hernandez Measurements Intervals Heber Rate: 124 P: 79 CO: 139 QRS: 19 QRSD: 79 T: 88 QT: 325 QTc: 467 Interpretive Statements Sinus tachycardia Abnormal R-wave progression, early transition Electronically Signed On 02-04-2025 15:52:16 PDT by Thom Hernandez Please click the below link to view image of tracing.
== END 2025-02-03 18:00 | disposition home health service (06) | DRG 853 ==
LOC: ER 12:00 → OVERFLOW 15:51 → ER 16:00 → CENTRAL 22:06
PROVIDERS: ADMIT Internal Medicine; ATTEND Emergency Medicine
PROC: 0P9 Upper Bones, Drainage (ICD-10-PCS; principal; 2025-01-25 07:22)
PROC: 0W9930Z Drainage of Right Pleural Cavity with Drainage Device, Percutaneous Approach (ICD-10-PCS; 2025-01-28)
PROC: 05HA33Z Insertion of Infusion Device into Left Brachial Vein, Percutaneous Approach (ICD-10-PCS; 2025-01-28)
PROC: B54NZZA Ultrasonography of Left Upper Extremity Veins, Guidance (ICD-10-PCS; 2025-01-28)
DX: A41.9 Sepsis, unspecified organism (principal); E43 Unspecified severe protein-calorie malnutrition; J15.69 Pneumonia due to other Gram-negative bacteria; J96.01 Acute respiratory failure with hypoxia; J15.9 Unspecified bacterial pneumonia; L02.213 Cutaneous abscess of chest wall; L03.313 Cellulitis of chest wall; L02.818 Cutaneous abscess of other sites; E87.20 Acidosis, unspecified; F17.210 Nicotine dependence, cigarettes, uncomplicated; M54.9 Dorsalgia, unspecified; G89.29 Other chronic pain; I10 Essential (primary) hypertension; F12.90 Cannabis use, unspecified, uncomplicated; D53.9 Nutritional anemia, unspecified; D75.838 Other thrombocytosis; M54.50 Low back pain, unspecified; Z53.20 Procedure and treatment not carried out because of patient's decision for unspecified reasons; J43.9 Emphysema, unspecified; Z68.22 Body mass index [BMI] 22.0-22.9, adult
CPT/HCPCS: 10005; 36415; 36600; 71045; 71250; 71260; 76604; 76705; 76942; 77012; 80048; 80053; 80061; 80074; 80202; 80307; 81001; 82565; 82805; 83036; 83605; 83880; 84484; 85025; 85610; 85730; 86850; 86900; 86901; 87040; 87086; 87205; 93005; 93306; 94640; 96365; 96375; 97110; 97116; 97163; 99291; 99292; C1729; G0378; J0690; J1100; J1885; J2003; J2185; J2250; J2405; J2704; J3490

== ENCOUNTER 2025-02-22 01:15 | Inpatient (IN) | payer MEDICARE, OTHER ==
[2025-02-22] VITALS (13 sets, daily range): BP systolic 136–185; BP diastolic 84–117; PULSE 68–119; RESP 12–24; TEMP 98.4–98.7; O2SAT 95–100
[~2025-02-22] VITALS: Ht 177.8 cm; Wt 68.2 kg
[~2025-02-22 01:15] MED LIST: AUG875T PO; BACDST PO
--- NOTE | 2025-02-22 01:41 | ED.PDOC ---
SOB-HPI HPI Comments 74-year-old male who came to ER via EMS for nausea and vomiting/shortness a breath. Patient was discharged your last February 03, diagnosed with 1. Acute Hypoxic respiratory failure likely due to Gram-positive/Gram-negative pneumonia, 2. Acute Right upper chest cellulitis with Abscess, 3. Sepsis sec to above, 4. Primary hypertension, 5. chronic back pain, 6. Severe protein malnutrition. Patient for the past few days has been having productive cough with shortness of breath progressively worsening, associated episodes of nausea and vomiting. 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 Information Source: Patient Mode of Arrival: EMS Severity: Moderate Timing: Days Duration: Since onset Context: At Rest, With Light Exertion PE Risk Factors: None History of: Other (Pneumonia) Associated Signs and Symptoms: Cough Quality: Aching, Tightness Radiation: No Radiation Location: Chest (R), Chest (L) If cough with SOB: Productive Past Medical History PAST MEDICAL HISTORY: HTN Past Medical History (Other): Chronic back pain Surgical History: Denies all surgeries Social History Smoker: Cigarettes Alcohol: Denies ETOH Use Drugs: Denies Drug Use Lives In: Home Constitutional: reports: diaphoresis, fatigue, weakness; denies: chills, fever, malaise, sweats, others EENTM: denies: blurred vision, double vision, ear bleeding, ear discharge, ear drainage, ear pain, ear ringing, eye pain, eye redness, hearing loss, mouth pain, mouth swelling, nasal discharge, nose bleeding, nose congestion, nose pain, photophobia, tearing, throat pain, throat swelling, voice changes, others Respiratory: reports: cough, SOB at rest, shortness of breath, SOB with excertion; denies: hemoptysis, orthopnea, stridor, wheezing, others Cardiovascular: denies: chest pain, dizzy spells, diaphoresis, Dyspnea on exertion, edema, irregular heart beat, left arm pain, lightheadedness, palpitations, PND, syncope, others Gastrointestinal: reports: abdominal pain, nausea, vomiting; denies: abdomen distended, blood streaked bowels, constipated, diarrhea, dysphagia, difficulty swallowing, hematemesis, melena, poor appetite, poor fluid intake, rectal bleeding, rectal pain, others Genitourinary: denies: burning, dysuria, flank pain, frequency, hematuria, incontinence, penile discharge, penile sore, pain, testicle pain, testicle swelling, urgency, others Neurological: denies: dizziness, fainting, headache, left sided numbness, left sided weakness, numbness, paresthesia, pre-existing deficit, right sided nu mbness, right sided weakness, seizure, speech problems, tingling, tremors, weakness, others Musculoskeletal: denies: back pain, gout, joint pain, joint swelling, muscle pain, muscle stiffness, neck pain, others Integumetry: denies: bruises, change in color, change in hair/nails, dryness, laceration, lesions, lumps, rash, wounds, others Allergic/Immunocompromised: denies: Difficulty Healing, Frequent Infections, Hives, Itching, others Hematologic/Lymphatic: denies: anemia, blood clots, easy bleeding, easy bruising, swollen glands, others Endocrine: denies: excessive hunger, excessive sweating, excessive thirst, excessive urination, flushing, intolerance to cold, intolerance to heat, unexplained weight gain, unexplained weight loss, others Psychiatric: denies: anxiety, bipolar disorder, depression, hopeless, panic disorder, schizophrenia, sleepless, suicidal, others Physical Exam General Appearance: No Apparent Distress, Normal HEENT: Normal ENT Inspection, Pharynx Normal, TMs Normal Neck: Full Range of Motion, Non-Tender, Normal, Normal Inspection Respiratory: Chest Non-Tender, Lungs Clear, No Accessory Muscle Use, No Respiratory Distress, Normal Breath Sounds Cardiovascular: No Edema, No JVD, No Murmur, No Gallop, Normal Peripheral Pulses, Regular Rate/Rhythm Breast Exam: Deferred Gastrointestinal: No Organomegaly, Non Tender, No Pulsatile Mass, Normal Bowel Sounds, Soft Genitalia: Deferred Pelvic: Deferred Rectal: Deferred Extremities: No calf tenderness, Normal capillary refill, Normal inspection, Normal range of motion, Non-tender, No pedal edema Musculoskeletal : Apperance: Normal Neurologic: Alert, 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 Was a procedure done?: No Differential Dx Differential Diagnosis: Asthma, Bronchitis, CHF, COPD, Myocardial infarction, Pneumonia, Respiratory Distress, URI X-Ray, Labs, Meds, VS Vital Signs Date Time Temp Pulse Resp B/P (MAP) Pulse Ox O2 Delivery O2 Flow Rate FiO2 02/22/25 05:00 119 24 162/102 (122) 100 02/22/25 04:00 118 160/94 (116) 98 02/22/25 03:00 111 31 156/85 (108) 100 02/22/25 01:55 110 21 97 Nasal Cannula* 2 28 02/22/25 01:55 98.7 110 21 139/91 (107) 97 98.7 02/22/25 01:30 98.8 95 16 149/87 (107) 98 98.8 02/22/25 01:22 111 Lab Test 02/22/25 05:14 02/22/25 03:12 02/22/25 02:40 02/22/25 02:27 Range/Units Lactic Acid Level 1.8 2.2 *H 0.4-2.0 mmol/L Troponin I High Sensitivity 10 10 </=54 ng/L Urine Color Light-yellow Yellow Urine Clarity Clear Clear Urine pH 8.0 5.0-9.0 Urine Specific [place] 1.013 1.001-1.035 Urine Protein Negative Negative Urine Ketones Negative Negative Urine Blood Trace H Negative /uL Urine Nitrite Negative Negative Urine Bilirubin Negative Negative Urine Urobilinogen Normal Negative mg/dL Urine Leukocyte Esterase Negative Negative /uL Urine RBC 9 0 - 3 /hpf Urine Microscopic WBC 2 0-3 /HPF Urine Squamous Epithelial Cells None seen <5 /hpf Urine Bacteria None seen None Seen /hpf Urine Glucose Trace Normal mg/dL Prothrombin Time 11.7 9.3-11.8 sec Prothrombin Time INR 1.12 0.9-1.15 Activated Partial Thromboplast Time 23.4 L 24.5-34.5 SEC D-Dimer, Quantitative 1.99 H 0.0-0.49 mg/L FEU Test 02/22/25 02:13 Range/Units White Blood Count 7.5 4.4-10.8 10^3/uL Red Blood Count 3.41 L 4.5-5.90 10^6/uL Hemoglobin 11.9 L 13.5-17.5 g/dL Hematocrit 34.5 L 41.0-53.0 % Mean Corpuscular Volume 101.2 H 80.0-100.0 fL Mean Corpuscular Hemoglobin 34.8 H 28.0-32.0 pg Mean Corpuscular Hemoglobin Concent 34.4 32.0-36.0 g/dL Red Cell Distribution Width 17.1 H 11.8-14.3 % Platelet Count 334 140-450 10^3/uL Mean Platelet Volume 6.0 L 6.9-10.8 fL Neutrophils (%) (Auto) 69.9 37.0-80.0 % Lymphocytes (%) (Auto) 23.2 10.0-50.0 % Monocytes (%) (Auto) 6.5 0.0-12.0 % Eosinophils (%) (Auto) 0.0 0.0-7.0 % Basophils (%) (Auto) 0.4 0.0-2.0 % Neutrophils # (Auto) 5.2 1.6-8.6 10 ^3/uL Lymphocytes # (Auto) 1.7 0.4-5.4 10 ^3/uL Monocytes # (Auto) 0.5 0-1.3 10 ^3/uL Eosinophils # (Auto) 0 0-0.8 10 ^3/uL Basophils # (Auto) 0 0-0.2 10 ^3/uL Nucleated Red Blood Cells 0.0 % Sodium Level 139 136-145 mmol/L Potassium Level 3.1 L 3.5-5.1 mmol/L Chloride Level 100 98-107 mmol/L Carbon Dioxide Level 26 20-31 mmol/L Anion Gap 13 5-15 Blood Urea Nitrogen < 5 L 9-23 mg/dL Creatinine 0.49 L 0.700-1.30 mg/dL Glomerular Filtration Rate Calc 106 >90 mL/min BUN/Creatinine Ratio 10.2 10.0-20.0 Serum Glucose 123 H 74-106 mg/dL Calcium Level 8.9 8.7-10.4 mg/dL Magnesium Level 1.7 1.6-2.6 mg/dL Total Bilirubin 0.6 0.2-1.0 mg/dL Aspartate Amino Transferase (AST) 32 13-40 U/L Alanine Aminotransferase (ALT) 26 7-40 U/L Alkaline Phosphatase 91 46-116 U/L Troponin I High Sensitivity 9 </=54 ng/L B-Type Natriuretic Peptide 226.21 0-100 pg/mL Total Protein 7.2 5.7-8.2 g/dL Albumin 3.7 3.2-4.8 g/dL Current Medications Medications (Trade) Dose Ordered Sig/Sobeida Route Start Time Stop Time Status Last Admin Ondansetron HCl (Zofran) 4 mg ONCE ONCE IV 02/22/25 01:45 02/22/25 01:46 DC 02/22/25 02:10 Sodium Chloride 1,000 ml @ 1,000 mls/hr Q1H ONCE IV 02/22/25 01:45 02/22/25 02:44 DC 02/22/25 02:10 Time of 1ST Reevaluation: 01:37 Reevaluation 1ST: Unchanged Patient Education/Counseling: Diagnosis, Treatment Family Education/Counseling: No Family Present Departure 1 Departure Time of Disposition: 05:47 Impression: Primary Impression: COPD with acute exacerbation Additional Impression: Respiratory failure with hypoxia Disposition: ADMITTED INPATIENT Condition: Guarded Discharged With: Self Comments COPD Exacerbation with Respiratory Failure Chief Complaint: Shortness of breath History of Present Illness: 74-year-old male with known COPD presents with worsening shortness of breath for the past two days. Patient reports associated wheezing. Of note, patient has a recent history of pneumonia and was previously treated for chest wall cellulitis during his last visit, which he reports has improved. In the ED, patient has required supplemental oxygen and has shown some improvement with bronchodilator nebulizer treatment and systemic steroids (Medrol). Review of Systems: Respiratory: Positive for shortness of breath and wheezing Skin: Improving chest wall cellulitis All other systems reviewed and negative Medications: Current medications not specified in applications development consultant ED medications: - Methylprednisolone (Medrol) - Bronchodilator nebulizer treatment - Supplemental oxygen Allergies: No known allergies documented Past Medical History: 1. Chronic Obstructive Pulmonary Disease (COPD) 2. Recent pneumonia 3. Recent chest wall cellulitis Medical Decision Making: Summary Statement: 74-year-old male with history of COPD presenting with acute respiratory failure and hypoxia requiring supplemental oxygen, responding partially to initial ED interventions. Problem List: 1. COPD exacerbation 2. Acute respiratory failure with hypoxia 3. Resolving chest wall cellulitis Differential Diagnosis: 1. COPD exacerbation 2. Pneumonia 3. Acute bronchitis 4. Pulmonary embolism 5. Acute heart failure ED Course: Patient received supplemental oxygen, bronchodilator nebulizer treatment, and systemic steroids with partial improvement. Given ongoing oxygen requirement and severity of presentation, admission was deemed necessary. Assessment and Plan: 1. COPD Exacerbation with Acute Respiratory Failure: - Admit to hospital for continued management - Continue bronchodilator treatments - Continue systemic steroids - Supplemental oxygen as needed - Monitor respiratory status 2. Resolving Chest Wall Cellulitis: - Continue to monitor - Follow up on previous antibiotic course if applicable Billing Information: ICD-10: J44.1 - COPD with acute exacerbation ICD-10: J96.01 - Acute respiratory failure with hypoxia ICD-10: L03.89 - Cellulitis, other sites Critical Care Note Critical Care Time?: Yes (35 min-critical care time only) Critical care comment: Shortness of breath Total critical care time: Approximately 36 minutes Due to a high probability of clinically significant, life threatening deterioration, the patient required my highest level of preparedness to intervene emergently and I personally spent this critical care time directly and personally managing the patient. This critical care time included obtaining a history; examining the patient; pulse oximetry; ordering and review of studies; arranging urgent treatment with development of a management plan; evaluation of patient's response to treatment; frequent reassessment; and, discussions with other providers. This critical care time was performed to assess and manage the high probability of imminent, life-threatening deterioration that could result in multi-organ failure. It was exclusive of separately billable procedures and treating other patients. Stability Stability form required: No Heart Score Heart Score: Heart Score Response (Comments) Value History Moderate Suspicious 1 EKG Repolarization Disturb 1 Age >65 2 Risk Factors >3 or Hx ASHD 2 Troponin Normal limit 0 Total 6 I personally scribed for DIMITRY FLORES MD ([email or web address]) on 02/22/25 at 01:41. Electronically submitted by Lul Archibald ([email or web address]). DIMITRY FLORES MD February 22, 2025 01:41
[2025-02-22] MEDS: ONDANSETRON HCL 4 MG/2 ML VIAL IV ONE (02:10)
[2025-02-22] MEDS: SODIUM CHLORIDE 0.9% 1,000 ML IV ONE (02:10)
[2025-02-22 02:49] LABS: Basophils # (auto) 0 10 ^3/uL (0-0.2); Basophils % (auto) 0.4 % (0.0-2.0); Eosinophils # (auto) 0 10 ^3/uL (0-0.8); Hematocrit 34.5 % (41.0-53.0); Hemoglobin 11.9 g/dL (13.5-17.5); Lymphocytes # (auto) 1.7 10 ^3/uL (0.4-5.4); Lymphocytes % (auto) 23.2 % (10.0-50.0); Mean Corpuscular Hemoglobin 34.8 pg (28.0-32.0); Mean Corpuscular Hgb Conc. 34.4 g/dL (32.0-36.0); Mean Corpuscular Volume 101.2 fL (80.0-100.0); Monocytes # (auto) 0.5 10 ^3/uL (0-1.3); Monocytes % (auto) 6.5 % (0.0-12.0); Neutrophils # (auto) 5.2 10 ^3/uL (1.6-8.6); Neutrophils % (auto) 69.9 % (37.0-80.0); Platelet Count (auto) 334 10^3/uL (140-450); Red Blood Cells 3.41 10^6/uL (4.5-5.90); Red Cell Distribution Width 17.1 % (11.8-14.3); White Blood Cell 7.5 10^3/uL (4.4-10.8)
[2025-02-22 02:59] LABS: INR 1.12 (0.9-1.15); Partial Thromboplastin Time 23.4 SEC (24.5-34.5); Prothrombin Time 11.7 sec (9.3-11.8)
[2025-02-22 03:03] LABS: Lactic Acid w/Reflex 2.2 mmol/L (0.4-2.0)
[2025-02-22 03:08] LABS: Urine Bacteria None Seen /hpf (None Seen)
[2025-02-22 03:12] LABS: Alanine Aminotransferase 26 U/L (7-40); Alkaline Phosphatase 91 U/L (46-116); Calcium 8.9 mg/dL (8.7-10.4); Carbon Dioxide 26 mmol/L (20-31); Chloride 100 mmol/L (98-107)
[2025-02-22 03:13] LABS: Albumin 3.7 g/dL (3.2-4.8); Anion Gap 13 (5-15); Aspartate Aminotransferase 32 U/L (13-40); BUN/Creatinine Ratio 10.2 (10.0-20.0); Bilirubin, Total 0.6 mg/dL (0.2-1.0); Blood Urea Nitrogen < 5 mg/dL (9-23); Glucose 123 mg/dL (74-106); Magnesium 1.7 mg/dL (1.6-2.6); Potassium 3.1 mmol/L (3.5-5.1); Sodium 139 mmol/L (136-145); Total Protein 7.2 g/dL (5.7-8.2)
[2025-02-22 03:25] LABS: Urine Blood TRACE /uL (Negative); Urine Clarity Clear (Clear); Urine Color Light-Yellow (Yellow); Urine Protein, UAD Negative (Negative); Urine Specific Gravity 1.013 (1.001-1.035); Urine Squamous Epithelial Cell None Seen /hpf (<5); Urine Urobilinogen Normal (Negative); Urine WBC 2 /HPF (0-3)
--- NOTE | 2025-02-22 04:07 | DVH ---
CHEST RADIOGRAPH Indication: SOB Technique: Single frontal view of the chest was obtained Comparison: XY CHEST PORTABLE on DOS: 01/30/25, XY CHEST XRAY 1 VIEW on DOS: 01/27/25, XY CHEST PORTABL E on DOS: 01/23/25 IMPRESSION: Heart appears stable in size. No focal airspace opacity, effusion, or pneumothorax.
[2025-02-22] MEDS: IOHEXOL 350 MG/ML 100ML IJ ONE (04:38)
--- NOTE | 2025-02-22 05:50 | DVH ---
INDICATION: SOB TECHNIQUE: Multidetector CTA of the chest was performed of the chest with 100 cc of intravenous contr ast. PULMONARY ANGIOGRAPHY PROTOCOL was utilized using a bolus-tracking technique centered on the derrick n pulmonary artery. Axial, coronal and sagittal multiplanar and MIP reformats were performed. Radiation Dose Information: CT Dose: CTDI volume is 15.7 mGy. Dose-length product is 634.3 mGy*cm The dose indicators for CT are the volume Computed Tomography (CT) Dose Index (CTDIvol) and the Dose Length Product (DLP), and are measured in units of mGy and mGy-cm, respectively. These indicators are not patient dose, but values generated from the CT scanner acquisition factors. The report includes radiation exposure data for exposures received during this examination. Comparison: 01/27/2025 Findings: Evaluation of the pulmonary artery demonstrates no evidence of focal filling defect to suggest pulmon alberta embolus. The thoracic aorta appears normal in caliber and contour. No pleural or pericardial effu sherry. Bibasilar airspace opacities. Centrilobular and subpleural emphysema with possible fibrotic ch anges in the lung bases. Visualized portions of the upper abdomen demonstrate hypodensities within the liver, likely cysts. P robable left renal cyst. IMPRESSION: 1. No evidence of pulmonary embolus. 2. Centrilobular and subpleural emphysema with possible fibrotic changes of the lung bases. 3. Opacification at the lung bases may represent infectious process or atelectasis. Limited in evalu ation by patient motion.
[2025-02-22] MEDS: cefTRIAXone 1GM/50ML D5W 50 ML IV ONE (06:15)
--- NOTE | 2025-02-22 06:26 | ECG ---
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
[2025-02-22] MEDS: AZITHROMYCIN 500MG/ 250ML 250 ML IV ONE (06:44)
[2025-02-22] MEDS ORDERED: NITROGLYCERIN 0.4 MG SL TAB SL PRN (07:15)
[2025-02-22] MEDS ORDERED: ACETAMINOPHEN 500 MG TAB or CAP PO PRN (07:15)
[2025-02-22] MEDS ORDERED: MORPHINE SULFATE INJ 2 MG/ml SYRG IV PRN (07:15)
[2025-02-22] MEDS: SOD CHL 0.9%/ KCL 40MEQ 1,000 ML IV ONE (07:15)
[2025-02-22] MEDS ORDERED: HYDROcodone-ACET 5/325MG TAB PO PRN (07:15)
--- NOTE | 2025-02-22 07:32 | DVHHP2 ---
History of Present Illness Reason for Visit: Cough, shortness of breath, nausea/vomiting, diarrhea History of Present Illness The patient is a 74-year-old male presenting to the emergency room complaints of shortness of breaths, cough, nausea/vomiting, and diarrhea. The patient was recently discharged from this facility on 02/03/2025 after being admitted for right upper chest cellulitis/abscess. Patient states he was of normal health after being discharged up until two days ago when he began having the previously a for mentions symptoms. Patient's symptoms have not resolved, for which he seeking treatment in the hospital. While the patient does not wear oxygen at home the patient states he has been short of breath, is currently on 3 L via Oxymizer. The patient denies having any sputum production, fevers, chills, or body aches. Significant history of the patient includes hypertension, COPD, and vitamin-D deficiency. Cardiovascular: HTN Pulmonary: COPD, Pneumonia Dermatology: Cellulitis Past Surgical History: Other (I and D of abscess to right upper chest) Smoke: 1 pack per day ALCOHOL: none Lives: with Family Review of Systems Constitutional: No: Fever, Chills, Sweats, Weakness, Malaise, Other Eyes: No: Pain, Vision change, Conjunctivae inflammation, Eyelid inflammation, Other, Redness ENT: No: Ear pain, Ear discharge, Nose pain, Nose discharge, Nose congestion, Mouth pain, Mouth swelling, Throat pain, Throat swelling, Other Respiratory: Cough, Shortness of breath Cardiovascular: No: Chest Pain, Palpitations, Orthopnea, Paroxysmal Noc. Dyspnea, Edema, Lt Headedness, Other Gastrointestinal: Nausea, Vomiting, Diarrhea Genitourinary: No Dysuria, No Frequency, No Incontinence, No Hematuria, No Retention, No Other Musculoskeletal: No: other, neck pain, shoulder pain, arm pain, back pain, hand pain, leg pain, foot pain Skin: No: Rash, Lesions, Jaundice, Bruising, Other Neurological: No: Weakness, Numbness, Incoordination, Change in speech, Confusion, Seizures, Other Allergies: Coded Allergies: NO KNOWN ALLERGIES (Unverified , 01/23/25) Medications Current Medications Medications Dose Ordered Sig/Sobeida Route Start Time Stop Time Status Last Admin Dose Admin Nitroglycerin 0.4 mg Q5MINP PRN SL 02/22/25 07:15 UNV Morphine Sulfate 2 mg Q30M PRN IV 5/18/25 07:15 UNV Ceftriaxone Sodium 50 ml @ 100 mls/hr DAILY@09 IV 02/22/25 09:00 UNV Azithromycin 500 mg DAILY PO 02/23/25 10:00 UNV Albuterol 2.5 mg Q6HWA NEB 02/22/25 12:00 UNV Ipratropium [place] 0.5 mg Q6HWA NEB 02/22/25 12:00 UNV Budesonide 0.5 mg BID NEB 02/22/25 10:00 UNV Saccharomyces Boulardii 250 mg DAILY PO 02/22/25 10:00 UNV Losartan Potassium 50 mg DAILY PO 02/22/25 07:15 UNV Pantoprazole Sodium 40 mg DAILY@0600 PO 02/22/25 07:15 UNV Acetaminophen/ Hydrocodone Bitart 1 tab Q6HPRN PRN PO 02/22/25 07:15 UNV Acetaminophen 500 mg Q8HP PRN PO 02/22/25 07:15 UNV Ondansetron HCl 4 mg Q6HP PRN IV 02/22/25 07:15 UNV Exam Vital Signs Vital Signs Date Time Temp Pulse Resp B/P (MAP) Pulse Ox O2 Delivery O2 Flow Rate FiO2 02/22/25 05:00 119 24 162/102 (122) 100 02/22/25 01:55 Nasal Cannula* 2 28 02/22/25 01:55 98.7 98.7 General Appearance: Alert, Oriented X3, Cooperative, mild distress HEENT: Atraumatic, PERRLA Respiratory: Other (Decreased breath sounds bilaterally.) Cardiovascular: Normal S1, Normal S2, Other (Sinus tachycardia with unifocal PVCs) Abdominal: Normal bowel sounds, Soft, No tenderness, No hepatospenomegaly Extremities: No cyanosis, No edema, Normal pulses Skin: No breakdown Psych/Mental Status: Mental status NL, Mood NL Labs/Xrays Labs Test 02/22/25 05:14 02/22/25 02:40 02/22/25 02:27 02/22/25 02:13 Range/Units Lactic Acid Level 1.8 0.4-2.0 mmol/L Troponin I High Sensitivity 10 </=54 ng/L Urine Color Light-yellow Yellow Urine Clarity Clear Clear Urine pH 8.0 5.0-9.0 Urine Specific [place] 1.013 1.001-1.035 Urine Protein Negative Negative Urine Ketones Negative Negative Urine Blood Trace H Negative /uL Urine Nitrite Negative Negative Urine Bilirubin Negative Negative Urine Urobilinogen Normal Negative mg/dL Urine Leukocyte Esterase Negative Negative /uL Urine RBC 9 0 - 3 /hpf Urine Microscopic WBC 2 0-3 /HPF Urine Squamous Epithelial Cells None seen <5 /hpf Urine Bacteria None seen None Seen /hpf Urine Glucose Trace Normal mg/dL Prothrombin Time 11.7 9.3-11.8 sec Prothrombin Time INR 1.12 0.9-1.15 Activated Partial Thromboplast Time 23.4 L 24.5-34.5 SEC D-Dimer, Quantitative 1.99 H 0.0-0.49 mg/L FEU White Blood Count 7.5 4.4-10.8 10^3/uL Red Blood Count 3.41 L 4.5-5.90 10^6/uL Hemoglobin 11.9 L 13.5-17.5 g/dL Hematocrit 34.5 L 41.0-53.0 % Mean Corpuscular Volume 101.2 H 80.0-100.0 fL Mean Corpuscular Hemoglobin 34.8 H 28.0-32.0 pg Mean Corpuscular Hemoglobin Concent 34.4 32.0-36.0 g/dL Red Cell Distribution Width 17.1 H 11.8-14.3 % Platelet Count 334 140-450 10^3/uL Mean Platelet Volume 6.0 L 6.9-10.8 fL Neutrophils (%) (Auto) 69.9 37.0-80.0 % Lymphocytes (%) (Auto) 23.2 10.0-50.0 % Monocytes (%) (Auto) 6.5 0.0-12.0 % Eosinophils (%) (Auto) 0.0 0.0-7.0 % Basophils (%) (Auto) 0.4 0.0-2.0 % Neutrophils # (Auto) 5.2 1.6-8.6 10 ^3/uL Lymphocytes # (Auto) 1.7 0.4-5.4 10 ^3/uL Monocytes # (Auto) 0.5 0-1.3 10 ^3/uL Eosinophils # (Auto) 0 0-0.8 10 ^3/uL Basophils # (Auto) 0 0-0.2 10 ^3/uL Nucleated Red Blood Cells 0.0 % Sodium Level 139 136-145 mmol/L Potassium Level 3.1 L 3.5-5.1 mmol/L Chloride Level 100 98-107 mmol/L Carbon Dioxide Level 26 20-31 mmol/L Anion Gap 13 5-15 Blood Urea Nitrogen < 5 L 9-23 mg/dL Creatinine 0.49 L 0.700-1.30 mg/dL Glomerular Filtration Rate Calc 106 >90 mL/min BUN/Creatinine Ratio 10.2 10.0-20.0 Serum Glucose 123 H 74-106 mg/dL Calcium Level 8.9 8.7-10.4 mg/dL Magnesium Level 1.7 1.6-2.6 mg/dL Total Bilirubin 0.6 0.2-1.0 mg/dL Aspartate Amino Transferase (AST) 32 13-40 U/L Alanine Aminotransferase (ALT) 26 7-40 U/L Alkaline Phosphatase 91 46-116 U/L B-Type Natriuretic Peptide 226.21 0-100 pg/mL Total Protein 7.2 5.7-8.2 g/dL Albumin 3.7 3.2-4.8 g/dL Assessment/Plan Assessment/Plan Impression: -acute hypoxic respiratory failure -? Bibasilar pneumonia -COPD -diarrhea -hypokalemia -accelerated hypertension -chronic back pain -ruled out pulmonary embolus Plan: -admit to telemetry unit -IV hydration with potassium supplementation -antibiotic therapy: Rocephin, azithromycin -stool for FOBT, cultures -continue DuoNebs, Pulmicort -pain management -CT angiogram of the chest reviewed, negative for PE -repeat labs in a.m. Total time spent with patient discussing and formulating plan of care: 35 minutes. This medical document was created using an electronic medical record system with [employer] dictation system. Although this document has been carefully reviewed, there may still be some phonetic and typographical errors. These areas are purely typographical due to imperfections of the software programs, and do not reflect any compromise in the patient's medical care. Plan discussed with: Patient, Other (RN) My Orders Orders - FIDELINA GALEANO DIRECTOR PROCESS IMPROVEMENT Procedure Category Date Status Time Admit ADMIT 02/22/25 Transmitted 07:13 Nitroglycerin PHA 02/22/25 Logged Sublingual (Ntrostat 07:15 Morphine Sulfate PHA 02/22/25 Logged Injection 07:15 Stat Ekg For Chest PRINCE 02/22/25 In Process Pain 07:13 Notify Of Changes PRINCE 02/22/25 In Process From Base 07:13 Structural Engineering Project Manager For [facility] 02/22/25 In Process 24 Hours 07:13 Emergency Dysrhythmia PRINCE 02/22/25 In Process Protocol 07:13 Rhythm Strips Once PRINCE 02/22/25 In Process Every Shift 07:13 Oxygen By Nasal RT 02/22/25 Transmitted Cannula 07:13 Ceftriaxone 1gm/50ml PHA 02/22/25 Logged D5w (Rocephin) 09:00 Azithromycin Tablet PHA 02/23/25 Logged (Zithromax Tablet) 10:00 Sod Chl 0.9%/ Kcl PHA 02/22/25 Logged 40meq 07:15 Albuterol Medneb PHA 02/22/25 Logged (Ventolin Medneb) 12:00 Ipratropium Medneb PHA 02/22/25 Logged (Atrovent Medneb) 12:00 Budesonide PHA 02/22/25 Logged (Inhalation) 10:00 Stool Bacterial MANA 02/22/25 Logged Culture 07:13 Stool Occult Blood LAB 02/22/25 Logged 07:13 Florastor (S. PHA 02/22/25 Logged Boulardii) (Florastor) 10:00 Magnesium Sulfate PHA 02/22/25 Logged 1gm/100ml 07:15 Losartan Tablet PHA 02/22/25 Logged (Cozaar Tablet) 07:15 Pantoprazole Tablet PHA 02/22/25 Logged (Protonix Tablet) 07:15 Basic Metabolic Panel LAB 02/23/25 Verified 04:00 Complete Blood Count LAB 02/23/25 Verified 04:00 Erythrocyte LAB 02/22/25 Logged Sedimentation Rate 07:13 C-Reactive Protein LAB 02/22/25 Logged 07:13 Hydrocodone-Acet PHA 02/22/25 Logged 5/325mg Tab (Hope 07:15 Acetaminophen Tab Or PHA 02/22/25 Logged Cap (Tylenol Tablet 07:15 Ondansetron Hcl PHA 02/22/25 Logged (Zofran) 07:15 OOB ORDERS 02/22/25 Transmitted 07:13 Date of Service: February 22, 2025 Billing Provider: FIDELINA GALEANO NP Common Visit Codes: [id number] INP/OBS CARE (HIGH) FIDELINA GALEANO NP February 22, 2025 07:32
[2025-02-22] MEDS: PANTOPRAZOLE 40 MG TAB PO SCH (08:00)
[2025-02-22] MEDS: MAGNESIUM SULFATE 1GM/100ML 100 ML IV ONE (08:04)
[2025-02-22] MEDS: LOSARTAN POTASSIUM 50 MG TAB PO SCH (08:16)
[2025-02-22 08:50] LABS: Erythrocyte Sedimentation Rate 64 mm/hr (0-20)
[2025-02-22] MEDS: BUDESONIDE (INHALATION) 0.5 MG/2 ML NEB NEB SCH (09:10)
[2025-02-22] MEDS: cefTRIAXone 1GM/50ML D5W 50 ML IV SCH (09:25)
[2025-02-22] MEDS: FLORASTOR (S. BOULARDII) 250 MG CAP PO SCH (10:00)
[2025-02-22] MEDS: ALBUTEROL SULF 2.5 MG/0.5ML(0.5%) NEB SOLN NEB SCH (11:04)
[2025-02-22] MEDS: IPRATROPIUM BROM 0.5 MG/2.5ML INH SOL NEB SCH (11:04)
[2025-02-22] MEDS: hydrALAZINE HCL 20 MG/ML VL IV ONE (20:07)
[2025-02-23] VITALS (15 sets, daily range): BP systolic 96–178; BP diastolic 65–97; PULSE 60–117; RESP 16–20; TEMP 98.4–98.8; O2SAT 97–100
[2025-02-23 01:48] LABS: Basophils # (auto) 0 10 ^3/uL (0-0.2); Basophils % (auto) 0.5 % (0.0-2.0); Eosinophils # (auto) 0 10 ^3/uL (0-0.8); Eosinophils % (auto) 0.2 % (0.0-7.0); Hematocrit 35.6 % (41.0-53.0); Hemoglobin 12.3 g/dL (13.5-17.5); Lymphocytes # (auto) 1.7 10 ^3/uL (0.4-5.4); Lymphocytes % (auto) 24.5 % (10.0-50.0); Mean Corpuscular Hemoglobin 34.9 pg (28.0-32.0); Mean Corpuscular Hgb Conc. 34.5 g/dL (32.0-36.0); Mean Corpuscular Volume 101.2 fL (80.0-100.0); Monocytes # (auto) 0.5 10 ^3/uL (0-1.3); Monocytes % (auto) 6.8 % (0.0-12.0); Neutrophils # (auto) 4.8 10 ^3/uL (1.6-8.6); Nucleated Red Blood Cells % 0.2 %; Platelet Count (auto) 313 10^3/uL (140-450); Red Blood Cells 3.52 10^6/uL (4.5-5.90); Red Cell Distribution Width 17.6 % (11.8-14.3); White Blood Cell 7.1 10^3/uL (4.4-10.8)
[2025-02-23 01:56] LABS: Chloride 100 mmol/L (98-107); Sodium 137 mmol/L (136-145)
[2025-02-23 01:57] LABS: Anion Gap 8 (5-15); Carbon Dioxide 29 mmol/L (20-31)
[2025-02-23 01:59] LABS: Calcium 8.5 mg/dL (8.7-10.4); Potassium 3.1 mmol/L (3.5-5.1)
[2025-02-23 02:03] LABS: Blood Urea Nitrogen < 5 mg/dL (9-23); Glucose 120 mg/dL (74-106)
[2025-02-23] MEDS: POTASSIUM CHL 20 Meq TABLET PO ONE (04:10)
[2025-02-23] MEDS: ONDANSETRON HCL 4 MG/2 ML VIAL IV PRN (04:38)
[2025-02-23] MEDS ORDERED: AZITHROMYCIN 250 MG TAB PO SCH (10:00)
--- NOTE | 2025-02-23 10:35 | MEDREC ---
[facility] ASP Intervention Section I [facility] ASP Intervention: Review courses of therapy (DUE TO PROLONG QTc > 500 PLEASE CONSIDER SWITCHING AZITHROMYCIN TO DOXYCYCLINE ) WALLACE VALDOVINOS PHARMACIST February 23, 2025 10:35
[2025-02-23] MEDS: PIPERACILLIN-TAZOB 3.375GM 100 ML IV SCH (14:17)
[2025-02-23] MEDS ORDERED: DOXYCYCLINE 100MG/100ML 100 ML IV SCH (14:30)
--- NOTE | 2025-02-23 15:13 | DVHPN2 ---
Subjective Patient reports having generalized weakness and decreased appetite. Reviewed: Care Plan, H&P, Labs, Medications Changes from previous H/P or p: No Changes General: Per HPI Eyes: No Pain, No Vision change, No Conjunctivae inflammation, No Eyelid inflammation, No Other, No Redness ENT: No Ear pain, No Ear discharge, No Nose pain, No Nose discharge, No Nose congestion, No Mouth pain, No Mouth swelling, No Throat pain, No Throat swelling, No Other Cardiovascular: No Chest Pain, No Palpitations, No Orthopnea, No Paroxysmal Noc. Dyspnea, No Edema, No Lt Headedness, No Other Respiratory: Cough, Shortness of breath Gastrointestinal: Nausea, Vomiting, Diarrhea Genitourinary: No Dysuria, No Frequency, No Incontinence, No Hematuria, No Retention, No Other Musculoskeletal: No other, No neck pain, No shoulder pain, No arm pain, No back pain, No hand pain, No leg pain, No foot pain Skin: No Rash, No Lesions, No Jaundice, No Bruising, No Other Objective Vitals Vital Signs Date Time Temp Pulse Resp B/P (MAP) Pulse Ox O2 Delivery O2 Flow Rate FiO2 02/23/25 13:30 60 148/77 (100) 02/23/25 12:27 98.4 16 100 98.4 02/23/25 12:15 Nasal Cannula* 1 24 Intake/Output Intake and Output 02/23/25 07:00 Intake Total 1550 ml Output Total 1400 ml Balance 150 ml Intake Oral 400 ml IV Total 1150 ml Output Urine Total 1400 ml # Voids 3 General Appearance: Alert, Oriented X3, Cooperative, mild distress HEENT: Atraumatic, PERRLA Lungs: Clear to auscultation, Normal air movement Cardiovascular: Normal S1, Normal S2 Abdomen: Normal bowel sounds, Soft Back: Flank Tenderness, Midline Tenderness Neuro: Normal gait, Normal speech Psych/Mental Status: Mental status NL, Mood NL Medications Current Medications Medications Dose Ordered Sig/Sobeida Route Start Time Stop Time Status Last Admin Dose Admin Nitroglycerin 0.4 mg Q5MINP PRN SL 02/22/25 07:15 Morphine Sulfate 2 mg Q30M PRN IV 02/22/25 07:15 Albuterol 2.5 mg Q6HWA NEB 02/22/25 12:00 02/23/25 12:12 2.5 MG Ipratropium [place] 0.5 mg Q6HWA NEB 02/22/25 12:00 02/23/25 12:12 0.5 MG Budesonide 0.5 mg BID NEB 02/22/25 10:00 02/23/25 12:12 0.5 MG Saccharomyces Boulardii 250 mg DAILY PO 02/22/25 10:00 02/23/25 09:03 250 MG Losartan Potassium 50 mg DAILY PO 02/22/25 07:15 02/23/25 09:10 50 MG Pantoprazole Sodium 40 mg DAILY@0600 PO 02/22/25 07:15 02/22/25 08:00 40 MG Acetaminophen/ Hydrocodone Bitart 1 tab Q6HPRN PRN PO 02/22/25 07:15 Acetaminophen 500 mg Q8HP PRN PO 02/22/25 07:15 Ondansetron HCl 4 mg Q6HP PRN IV 02/22/25 07:15 02/23/25 04:38 4 MG Piperacillin Sod/ Tazobactam Sod 100 ml @ 25 mls/hr Q8HR IV 02/23/25 14:00 02/23/25 14:17 25 MLS/HR Doxycycline Hyclate 100 ml @ 50 mls/hr Q12H IV 02/23/25 14:30 Laboratory Results Laboratory Tests 02/23/25 01:41 Chemistry Test 02/23/25 01:41 Calcium Level 8.5 mg/dL (8.7-10.4) L Urinalysis Test 02/22/25 02:40 Urine Color Light-yellow (Yellow) Urine Clarity Clear (Clear) Urine pH 8.0 (5.0-9.0) Urine Specific [place] 1.013 (1.001-1.035) Urine Protein Negative (Negative) Urine Ketones Negative (Negative) Urine Blood Trace /uL (Negative) H Urine Nitrite Negative (Negative) Urine Bilirubin Negative (Negative) Urine Urobilinogen Normal mg/dL (Negative) Urine Leukocyte Esterase Negative /uL (Negative) Urine RBC 9 /hpf (0 - 3) Urine Microscopic WBC 2 /HPF (0-3) Urine Squamous Epithelial Cells None seen /hpf (<5) Urine Bacteria None seen /hpf (None Seen) Urine Glucose Trace mg/dL (Normal) Microbiology Microbiology Date/Time Source Procedure Growth Status 02/22/25 20:45 Nose MRSA Screen - Final Complete 02/22/25 02:27 Blood Blood Culture - Preliminary Resulted Labs and/or images reviewed: Labs reviewed by me, Image(s) reviewed by me Assessment/Plan Assessment/Plan Impression: -acute hypoxic respiratory failure -? Bibasilar pneumonia -COPD -diarrhea -hypokalemia -accelerated hypertension -chronic back pain -ruled out pulmonary embolus Plan: Events: No events overnight. Patient did have short run of unifocal PVCs. Hypokalemic. -potassium replacement -IV hydration -patient with positive blood culture Gram-negative rods. Change antibiotic therapy to Zosyn, doxycycline. Z-Aden. Given patient's QT interval -IV hydration with potassium supplementation Nutritional supplementation -stool for FOBT, cultures -continue DuoNebs, Pulmicort -pain management -repeat labs in a.m. Total time spent with patient discussing and formulating plan of care: 35 minutes. This medical document was created using an electronic medical record system with [employer] dictation system. Although this document has been carefully reviewed, there may still be some phonetic and typographical errors. These areas are purely typographical due to imperfections of the software programs, and do not reflect any compromise in the patient's medical care. Plan discussed with: Patient, Other (RN) My Orders Orders - FIDELINA GALEANO NP Procedure Category Date Status Time Piperacillin-Tazob PHA 02/23/25 In Process 3.375gm (Zosyn 3.375g 14:00 Doxycycline PHA 02/23/25 In Process 100mg/100ml 14:30 Basic Metabolic Panel LAB 02/24/25 Verified 04:00 Magnesium LAB 02/24/25 Verified 04:00 Complete Blood Count LAB 02/24/25 Verified 04:00 Date of Service: February 23, 2025 Billing Provider: FIDELINA GALEANO NP Common Visit Codes: [id number] INP/OBS CARE(HIGH) FIDELINA GALEANO NP February 23, 2025 15:13
[2025-02-23] MEDS ORDERED: DIPHENOXYLATE W/ATROPINE 2.5 MG TAB PO PRN (15:15)
[2025-02-23] MEDS: MAGNESIUM SULFATE 1GM/100ML 100 ML IV ONE (16:04)
[2025-02-23] MEDS: SOD CHL 0.9%/ KCL 20MEQ 1,000 ML IV SCH (16:04)
--- NOTE | 2025-02-23 16:56 | DVHINCON2 ---
Date Seen: February 23, 2025 Referring Physician CHRISTEN Gonzalez Reason for Consultation Quadrigeminy History of Present Illness This is a 74-year-old male patient who presents to the emergency room with chief complaint of shortness of breath, nausea, and vomiting for four days prior to emergency room arrival. Cardiology has been consulted at this time for frequent PVCs. Initial twelve lead electrocardiogram done in the emergency room reveals sinus tachycardia with multiple PVCs and prolonged QTc interval at 519. Serial troponin levels have been negative. The patient denies any chest pain. Significant past medical history includes hypertension, COPD, history of pneumonia, and recent right upper chest cellulitis with abscess status post incision and drainage, marijuana and tobacco use. Past Medical History Past medical history reviewed. No other significant than mentioned above. Past Surgical History Incision and drainage of right subclavicular abscess on 01/25/2025 Family History: Diabetes mellitus G8 MOTHER Family History Family history reviewed. Social History Patient has a 10 pack-year history, smokes approximately half pack per day Patient admits to occasional marijuana use Denies any alcohol use Allergies: Coded Allergies: NO KNOWN ALLERGIES (Unverified , 01/23/25) Home Meds Active Scripts Sulfamethoxazole W/Trimethopri (Bactrim Ds Tablet) 1 Tab Tb, 1 TAB PO BID for 10 Days, #20 TAB Prov:ABBEY HopkinsEDWARD RESIDENT 02/03/25 Amoxicillin & Pot Clavulanate (AUGMENTIN TABLET) 875 Mg Tb, 875 MG PO BID for 10 Days, #20 TAB Prov:ABBEY HopkinsEDWARD RESIDENT 02/03/25 Home Meds Home medications reviewed. Current Medications Current Medications Medications (Trade) Dose Ordered Sig/Sobeida Route PRN Reason Start Time Stop Time Status Last Admin Azithromycin (Zithromax Tablet) 500 mg DAILY PO 02/23/25 10:00 02/23/25 14:19 DC Piperacillin Sod/ Tazobactam Sod 100 ml @ 25 mls/hr Q8HR IV 02/23/25 14:00 02/23/25 14:17 Doxycycline Hyclate 100 ml @ 50 mls/hr Q12H IV 02/23/25 14:30 02/23/25 15:39 DC Diphenoxylate HCl/ Atropine (Lomotil Tablet) 2.5 mg PRN PRN PO FOR DIARRHEA 02/23/25 15:15 Enteral Nutritional Formula (Ensure Pudding) 4 oz TIDWM PO 02/23/25 18:00 Potassium Chloride/Sodium Chloride 1,000 ml @ 75 mls/hr [id number] IV 02/23/25 15:15 02/23/25 16:04 Doxycycline Hyclate 100 ml @ 50 mls/hr Q12H IV 02/23/25 19:00 Review of Systems Constitutional: No symptom reported Ears, Nose, & Throat: No symptom reported Eyes: No symptom reported Neurological: No symptoms reported Pulmonary/Respiratory: Shortness of breath Cardiovascular: No symptom reported Gastrointestinal: Nausea, vomiting Genitourinary: No symptom reported Musculoskeletal: No symptom reported Skin: No symptom reported Psychiatric: No symptom reported Endocrine: No symptom reported Hematologic/Lymphatic: No symptom reported Vital Signs Vital Signs Date Time Temp Pulse Resp B/P (MAP) Pulse Ox O2 Delivery O2 Flow Rate FiO2 02/23/25 16:54 98.4 116 16 178/77 (110) 100 98.4 02/23/25 12:15 Nasal Cannula* 1 24 Physical Exam General Appearance: Cooperative. Well-developed. Well-nourished. No acute distress. Pulmonary/Respiratory: Clear, bilateral breaths sounds. Cardiovascular/Chest: Regular rate and rhythm. Peripheral Pulses: 2+ Radial (R). 2+ Radial (L). 2+ Pedal (R). 2+ Pedal (L) Abdominal Exam: Normal bowel sounds. Ankle Exam: Negative ankle edema Lower extremities: Negative lower extremity edema Neuro/Mental Status: A/OX4, coherent. Thoughts/Psych: Normal thought pattern. Appropriate mood and affect. Good judgment and insight. Appearance: No acute distress. Skin Exam: Normal inspection. Normal color. Warm and dry. Labs/Diagnostic Data Labs Test 02/23/25 01:41 02/22/25 07:57 02/22/25 05:14 02/22/25 02:40 Range/Units White Blood Count 7.1 4.4-10.8 10^3/uL Red Blood Count 3.52 L 4.5-5.90 10^6/uL Hemoglobin 12.3 L 13.5-17.5 g/dL Hematocrit 35.6 L 41.0-53.0 % Mean Corpuscular Volume 101.2 H 80.0-100.0 fL Mean Corpuscular Hemoglobin 34.9 H 28.0-32.0 pg Mean Corpuscular Hemoglobin Concent 34.5 32.0-36.0 g/dL Red Cell Distribution Width 17.6 H 11.8-14.3 % Platelet Count 313 140-450 10^3/uL Mean Platelet Volume 5.7 L 6.9-10.8 fL Neutrophils (%) (Auto) 68.0 37.0-80.0 % Lymphocytes (%) (Auto) 24.5 10.0-50.0 % Monocytes (%) (Auto) 6.8 0.0-12.0 % Eosinophils (%) (Auto) 0.2 0.0-7.0 % Basophils (%) (Auto) 0.5 0.0-2.0 % Neutrophils # (Auto) 4.8 1.6-8.6 10 ^3/uL Lymphocytes # (Auto) 1.7 0.4-5.4 10 ^3/uL Monocytes # (Auto) 0.5 0-1.3 10 ^3/uL Eosinophils # (Auto) 0 0-0.8 10 ^3/uL Basophils # (Auto) 0 0-0.2 10 ^3/uL Nucleated Red Blood Cells 0.2 % Sodium Level 137 136-145 mmol/L Potassium Level 3.1 L 3.5-5.1 mmol/L Chloride Level 100 98-107 mmol/L Carbon Dioxide Level 29 20-31 mmol/L Anion Gap 8 5-15 Blood Urea Nitrogen < 5 L 9-23 mg/dL Creatinine 0.50 L 0.700-1.30 mg/dL Glomerular Filtration Rate Calc 106 >90 mL/min BUN/Creatinine Ratio 10.0 10.0-20.0 Serum Glucose 120 H 74-106 mg/dL Calcium Level 8.5 L 8.7-10.4 mg/dL Erythrocyte Sedimentation Rate 64 H 0-20 mm/hr Lactic Acid Level 1.8 0.4-2.0 mmol/L Troponin I High Sensitivity 10 </=54 ng/L C-Reactive Protein High Sensitivity 0.88 <1.0 mg/dL Urine Color Light-yellow Yellow Urine Clarity Clear Clear Urine pH 8.0 5.0-9.0 Urine Specific [place] 1.013 1.001-1.035 Urine Protein Negative Negative Urine Ketones Negative Negative Urine Blood Trace H Negative /uL Urine Nitrite Negative Negative Urine Bilirubin Negative Negative Urine Urobilinogen Normal Negative mg/dL Urine Leukocyte Esterase Negative Negative /uL Urine RBC 9 0 - 3 /hpf Urine Microscopic WBC 2 0-3 /HPF Urine Squamous Epithelial Cells None seen <5 /hpf Urine Bacteria None seen None Seen /hpf Urine Glucose Trace Normal mg/dL Test 02/22/25 02:27 02/22/25 02:13 Range/Units Prothrombin Time 11.7 9.3-11.8 sec Prothrombin Time INR 1.12 0.9-1.15 Activated Partial Thromboplast Time 23.4 L 24.5-34.5 SEC D-Dimer, Quantitative 1.99 H 0.0-0.49 mg/L FEU Magnesium Level 1.7 1.6-2.6 mg/dL Total Bilirubin 0.6 0.2-1.0 mg/dL Aspartate Amino Transferase (AST) 32 13-40 U/L Alanine Aminotransferase (ALT) 26 7-40 U/L Alkaline Phosphatase 91 46-116 U/L B-Type Natriuretic Peptide 226.21 0-100 pg/mL Total Protein 7.2 5.7-8.2 g/dL Albumin 3.7 3.2-4.8 g/dL Microbiology Date/Time Source Procedure Growth Status 02/22/25 20:45 Nose MRSA Screen - Final Complete 02/22/25 02:27 Blood Blood Culture - Preliminary Resulted Assessment Sinus tachycardia with frequent PVCs Hypokalemia History of right upper chest cellulitis with abscess status post I&D Chronic pain Marijuana use Tobacco use Plan/Recommendation We will continue with the following plan/recommendations (Dr. Schmitt): Case discussed with . Transthoracic echocardiogram from 01/24/2025 re veals EF 65%. Patient noted to have frequent PVCs on monitoring manager. Patient came in with hypokalemia and continues to have hypokalemia per latest lab value. Primary care team replenished potassium level, pending new lab draw tomorrow morning. Order for Magnesium replacement and repeat level in AM. Avoid medications that prolong QT interval. Close Cardiac surveillance. No further workup at this point. Please reconsult if needed. Thank you for allowing us to care for this patient. Please call with any questions or concerns. Critical care time spent: 41 minutes This medical document was created using an electronic medical record system with voice recognition software and computerized dictation system. Although this document has been carefully reviewed, there might still be some phonetic and typographical errors. Occasional wrong-word or ``sound-alike substitutions may have occurred due to the inherent limitations of voice recognition software. These areas are purely typographical due to imperfections of the software programs and do not reflect any compromise in the patient's medical care. Please read the chart carefully and recognize, using context, where these substitutions have occurred. Plan discussed with: Patient NYHA Physical activity limitations: NA Date of Service: February 23, 2025 Billing Provider: WOJCIECH CHENEY Cardiology Common Codes: [id number] INP/OBS CARE (High) Cardiology Consultation Codes: [id number] CONSULT <45MIN WOJCIECH CHENEY February 23, 2025 16:56
[2025-02-23] MEDS: DOXYCYCLINE 100MG/100ML 100 ML IV SCH (18:27)
[2025-02-24] VITALS (12 sets, daily range): BP systolic 105–131; BP diastolic 72–91; PULSE 98–111; RESP 15–19; TEMP 96.7–98.4; O2SAT 98–100
[2025-02-24 06:57] LABS: Basophils # (auto) 0 10 ^3/uL (0-0.2); Basophils % (auto) 0.4 % (0.0-2.0); Eosinophils # (auto) 0 10 ^3/uL (0-0.8); Eosinophils % (auto) 0.4 % (0.0-7.0); Hemoglobin 11.7 g/dL (13.5-17.5); Lymphocytes # (auto) 2.4 10 ^3/uL (0.4-5.4); Lymphocytes % (auto) 36.2 % (10.0-50.0); Mean Corpuscular Hemoglobin 35.1 pg (28.0-32.0); Mean Corpuscular Hgb Conc. 34.5 g/dL (32.0-36.0); Mean Corpuscular Volume 101.7 fL (80.0-100.0); Monocytes # (auto) 0.6 10 ^3/uL (0-1.3); Monocytes % (auto) 8.3 % (0.0-12.0); Neutrophils # (auto) 3.6 10 ^3/uL (1.6-8.6); Neutrophils % (auto) 54.7 % (37.0-80.0); Nucleated Red Blood Cells % 0.2 %; Platelet Count (auto) 334 10^3/uL (140-450); Red Blood Cells 3.34 10^6/uL (4.5-5.90); Red Cell Distribution Width 17.2 % (11.8-14.3); White Blood Cell 6.7 10^3/uL (4.4-10.8)
[2025-02-24 07:01] LABS: Anion Gap 8 (5-15); Carbon Dioxide 29 mmol/L (20-31); Chloride 101 mmol/L (98-107); Sodium 138 mmol/L (136-145)
[2025-02-24 07:07] LABS: BUN/Creatinine Ratio 12.1 (10.0-20.0); Blood Urea Nitrogen 7 mg/dL (9-23); Calcium 8.6 mg/dL (8.7-10.4); Glucose 86 mg/dL (74-106); Magnesium 2.1 mg/dL (1.6-2.6); Potassium 3.5 mmol/L (3.5-5.1)
[2025-02-24] MEDS: Ensure Pudding Vanilla 4 oz Cup PO SCH (08:00)
--- NOTE | 2025-02-24 12:42 | DVHPN2 ---
Subjective Patient reports that his weakness has improved. Now reporting having appetite. Denies any fevers or chills. Reviewed: Care Plan, H&P, Labs, Medications Changes from previous H/P or p: Changes General: Per HPI Eyes: No Pain, No Vision change, No Conjunctivae inflammation, No Eyelid inflammation, No Other, No Redness ENT: No Ear pain, No Ear discharge, No Nose pain, No Nose discharge, No Nose congestion, No Mouth pain, No Mouth swelling, No Throat pain, No Throat swelling, No Other Cardiovascular: No Chest Pain, No Palpitations, No Orthopnea, No Paroxysmal Noc. Dyspnea, No Edema, No Lt Headedness, No Other Respiratory: Cough, Shortness of breath Gastrointestinal: Nausea, Vomiting, Diarrhea Genitourinary: No Dysuria, No Frequency, No Incontinence, No Hematuria, No Retention, No Other Musculoskeletal: No other, No neck pain, No shoulder pain, No arm pain, No back pain, No hand pain, No leg pain, No foot pain Skin: No Rash, No Lesions, No Jaundice, No Bruising, No Other Objective Vitals Vital Signs Date Time Temp Pulse Resp B/P (MAP) Pulse Ox O2 Delivery O2 Flow Rate FiO2 02/24/25 09:42 131/91 02/24/25 09:00 98.4 100 15 100 98.4 02/24/25 08:00 Nasal Cannula* 2 28 Intake/Output Intake and Output 02/24/25 07:00 Intake Total 1440 ml Output Total 500 ml Balance 940 ml Intake Oral 340 ml IV Total 1100 ml Output Urine Total 500 ml General Appearance: Alert, Oriented X3, Cooperative, mild distress HEENT: Atraumatic, PERRLA Lungs: Clear to auscultation, Normal air movement Cardiovascular: Normal S1, Normal S2 Abdomen: Normal bowel sounds, Soft Back: Flank Tenderness, Midline Tenderness Neuro: Normal gait, Normal speech Skin: Dry, Intact Psych/Mental Status: Mental status NL, Mood NL Medications Current Medications Medications Dose Ordered Sig/Sobeida Route Start Time Stop Time Status Last Admin Dose Admin Nitroglycerin 0.4 mg Q5MINP PRN SL 02/22/25 07:15 Morphine Sulfate 2 mg Q30M PRN IV 02/22/25 07:15 Albuterol 2.5 mg Q6HWA NEB 02/22/25 12:00 02/24/25 07:11 2.5 MG Ipratropium [place] 0.5 mg Q6HWA NEB 02/22/25 12:00 02/24/25 07:11 0.5 MG Budesonide 0.5 mg BID NEB 02/22/25 10:00 02/23/25 19:55 0.5 MG Saccharomyces Boulardii 250 mg DAILY PO 02/22/25 10:00 02/24/25 09:42 250 MG Losartan Potassium 50 mg DAILY PO 02/22/25 07:15 02/24/25 09:42 50 MG Pantoprazole Sodium 40 mg DAILY@0600 PO 02/22/25 07:15 02/24/25 05:14 40 MG Acetaminophen/ Hydrocodone Bitart 1 tab Q6HPRN PRN PO 02/22/25 07:15 Acetaminophen 500 mg Q8HP PRN PO 02/22/25 07:15 Ondansetron HCl 4 mg Q6HP PRN IV 02/22/25 07:15 02/23/25 04:38 4 MG Piperacillin Sod/ Tazobactam Sod 100 ml @ 25 mls/hr Q8HR IV 02/23/25 14:00 02/24/25 05:10 25 MLS/HR Diphenoxylate HCl/ Atropine 2.5 mg PRN PRN PO 02/23/25 15:15 Enteral Nutritional Formula 4 oz TIDWM PO 02/23/25 18:00 Potassium Chloride/Sodium Chloride 1,000 ml @ 75 mls/hr [id number] IV 02/23/25 15:15 02/24/25 05:13 75 MLS/HR Doxycycline Hyclate 100 ml @ 50 mls/hr Q12H IV 02/23/25 19:00 02/24/25 05:11 50 MLS/HR Laboratory Results Laboratory Tests 02/24/25 04:55 Chemistry Test 02/24/25 04:55 Calcium Level 8.6 mg/dL (8.7-10.4) L Magnesium Level 2.1 mg/dL (1.6-2.6) Urinalysis Test 02/22/25 02:40 Urine Color Light-yellow (Yellow) Urine Clarity Clear (Clear) Urine pH 8.0 (5.0-9.0) Urine Specific [place] 1.013 (1.001-1.035) Urine Protein Negative (Negative) Urine Ketones Negative (Negative) Urine Blood Trace /uL (Negative) H Urine Nitrite Negative (Negative) Urine Bilirubin Negative (Negative) Urine Urobilinogen Normal mg/dL (Negative) Urine Leukocyte Esterase Negative /uL (Negative) Urine RBC 9 /hpf (0 - 3) Urine Microscopic WBC 2 /HPF (0-3) Urine Squamous Epithelial Cells None seen /hpf (<5) Urine Bacteria None seen /hpf (None Seen) Urine Glucose Trace mg/dL (Normal) Microbiology Microbiology Date/Time Source Procedure Growth Status 02/22/25 20:45 Nose MRSA Screen - Final Complete 02/22/25 02:27 Blood Blood Culture - Final Complete Labs and/or images reviewed: Labs reviewed by me, Image(s) reviewed by me Assessment/Plan Assessment/Plan Impression: -acute hypoxic respiratory failure -? Bibasilar pneumonia -COPD -diarrhea -hypokalemia -accelerated hypertension -chronic back pain -ruled out pulmonary embolus Plan: Events: No events overnight. Blood culture with diphtheroids on one set. Repeat blood cultures pending. Ectopy improving. -potassium replacement -IV hydration -IV hydration with potassium supplementation Nutritional supplementation -stool for FOBT, cultures -continue DuoNebs, Pulmicort -pain management -repeat labs in a.m. Total time spent with patient discussing and formulating plan of care: 35 minutes. This medical document was created using an electronic medical record system with [employer] dictation system. Although this document has been carefully reviewed, there may still be some phonetic and typographical errors. These areas are purely typographical due to imperfections of the software programs, and do not reflect any compromise in the patient's medical care. Plan discussed with: Patient, Other (RN) My Orders Orders - FIDELINA GALEANO [employer] Procedure Category Date Status Time Diphenoxylate/Atropine PHA 02/23/25 In Process Tablet (Lomotil T 15:15 Nutritional PHA 02/23/25 In Process Supplements (Ensure 18:00 Sod Chl 0.9%/ Kcl PHA 02/23/25 In Process 20meq 15:15 Doxycycline PHA 02/23/25 In Process 100mg/100ml 19:00 Blood Culture MANA 02/24/25 Logged 11:37 Mechanical Soft Diet DIET 02/24/25 Transmitted Lunch Basic Metabolic Panel LAB 02/25/25 Verified 04:00 Date of Service: February 24, 2025 Billing Provider: FIDELINA GALEANO NP Common Visit Codes: [id number] INP/OBS CARE(HIGH) FIDELINA GALEANO NP February 24, 2025 12:42
[2025-02-25] VITALS (16 sets, daily range): BP systolic 118–140; BP diastolic 68–84; PULSE 82–112; RESP 16–20; TEMP 95.4–98.3; O2SAT 98–100
[2025-02-25 06:18] LABS: Anion Gap 7 (5-15); Carbon Dioxide 29 mmol/L (20-31); Chloride 104 mmol/L (98-107); Sodium 140 mmol/L (136-145)
[2025-02-25 06:24] LABS: BUN/Creatinine Ratio 16.4 (10.0-20.0); Blood Urea Nitrogen 10 mg/dL (9-23); Glucose 82 mg/dL (74-106)
[2025-02-25 06:34] LABS: Calcium 8.4 mg/dL (8.7-10.4); Potassium 3.4 mmol/L (3.5-5.1)
--- NOTE | 2025-02-25 11:17 | DVHPN2 ---
Subjective Patient reports that his weakness has improved. Now reporting having appetite. Denies any fevers or chills. Reviewed: Care Plan, H&P, Labs, Medications Changes from previous H/P or p: No Changes General: Per HPI Eyes: No Pain, No Vision change, No Conjunctivae inflammation, No Eyelid inflammation, No Other, No Redness ENT: No Ear pain, No Ear discharge, No Nose pain, No Nose discharge, No Nose congestion, No Mouth pain, No Mouth swelling, No Throat pain, No Throat swelling, No Other Cardiovascular: No Chest Pain, No Palpitations, No Orthopnea, No Paroxysmal Noc. Dyspnea, No Edema, No Lt Headedness, No Other Respiratory: Cough, Shortness of breath Gastrointestinal: Nausea, Vomiting, Diarrhea Genitourinary: No Dysuria, No Frequency, No Incontinence, No Hematuria, No Retention, No Other Musculoskeletal: No other, No neck pain, No shoulder pain, No arm pain, No back pain, No hand pain, No leg pain, No foot pain Skin: No Rash, No Lesions, No Jaundice, No Bruising, No Other Objective Vitals Vital Signs Date Time Temp Pulse Resp B/P (MAP) Pulse Ox O2 Delivery O2 Flow Rate FiO2 02/25/25 10:00 140/84 02/25/25 09:00 98.1 95 16 100 98.1 02/25/25 08:00 Nasal Cannula* 2 28 Intake/Output Intake and Output 02/25/25 07:00 Intake Total 2400 ml Output Total 1450 ml Balance 950 ml Intake Oral 800 ml IV Total 1600 ml Output Urine Total 1450 ml General Appearance: Alert, Oriented X3, Cooperative, mild distress HEENT: Atraumatic, PERRLA Lungs: Clear to auscultation, Normal air movement Cardiovascular: Normal S1, Normal S2 Abdomen: Normal bowel sounds, Soft Back: Flank Tenderness, Midline Tenderness Neuro: Normal gait, Normal speech Skin: Dry, Intact Psych/Mental Status: Mental status NL, Mood NL Medications Current Medications Medications Dose Ordered Sig/Sobeida Route Start Time Stop Time Status Last Admin Dose Admin Nitroglycerin 0.4 mg Q5MINP PRN SL 02/22/25 07:15 Morphine Sulfate 2 mg Q30M PRN IV 02/22/25 07:15 Albuterol 2.5 mg Q6HWA NEB 02/22/25 12:00 02/25/25 06:10 2.5 MG Ipratropium [place] 0.5 mg Q6HWA NEB 02/22/25 12:00 02/25/25 06:10 0.5 MG Budesonide 0.5 mg BID NEB 02/22/25 10:00 02/25/25 06:10 0.5 MG Saccharomyces Boulardii 250 mg DAILY PO 02/22/25 10:00 02/25/25 09:58 250 MG Losartan Potassium 50 mg DAILY PO 02/22/25 07:15 02/25/25 10:00 50 MG Pantoprazole Sodium 40 mg DAILY@0600 PO 02/22/25 07:15 02/25/25 06:26 40 MG Acetaminophen/ Hydrocodone Bitart 1 tab Q6HPRN PRN PO 02/22/25 07:15 Acetaminophen 500 mg Q8HP PRN PO 02/22/25 07:15 Ondansetron HCl 4 mg Q6HP PRN IV 02/22/25 07:15 02/23/25 04:38 4 MG Piperacillin Sod/ Tazobactam Sod 100 ml @ 25 mls/hr Q8HR IV 02/23/25 14:00 02/25/25 05:28 25 MLS/HR Diphenoxylate HCl/ Atropine 2.5 mg PRN PRN PO 02/23/25 15:15 Enteral Nutritional Formula 4 oz TIDWM PO 02/23/25 18:00 Potassium Chloride/Sodium Chloride 1,000 ml @ 75 mls/hr [id number] IV 02/23/25 15:15 02/25/25 06:27 75 MLS/HR Doxycycline Hyclate 100 ml @ 50 mls/hr Q12H IV 02/23/25 19:00 02/25/25 06:27 50 MLS/HR Laboratory Results Laboratory Tests 02/24/25 04:55 02/25/25 05:35 Chemistry Test 02/25/25 05:35 Calcium Level 8.4 mg/dL (8.7-10.4) L Urinalysis Test 02/22/25 02:40 Urine Color Light-yellow (Yellow) Urine Clarity Clear (Clear) Urine pH 8.0 (5.0-9.0) Urine Specific [place] 1.013 (1.001-1.035) Urine Protein Negative (Negative) Urine Ketones Negative (Negative) Urine Blood Trace /uL (Negative) H Urine Nitrite Negative (Negative) Urine Bilirubin Negative (Negative) Urine Urobilinogen Normal mg/dL (Negative) Urine Leukocyte Esterase Negative /uL (Negative) Urine RBC 9 /hpf (0 - 3) Urine Microscopic WBC 2 /HPF (0-3) Urine Squamous Epithelial Cells None seen /hpf (<5) Urine Bacteria None seen /hpf (None Seen) Urine Glucose Trace mg/dL (Normal) Microbiology Microbiology Date/Time Source Procedure Growth Status 02/22/25 20:45 Nose MRSA Screen - Final Complete 02/22/25 02:27 Blood Blood Culture - Final Complete Labs and/or images reviewed: Labs reviewed by me, Image(s) reviewed by me Assessment/Plan Assessment/Plan Impression: -acute hypoxic respiratory failure -? Bibasilar pneumonia -COPD -diarrhea -hypokalemia -accelerated hypertension -chronic back pain -ruled out pulmonary embolus Plan: Events: No events overnight. Patient clinically improving. Sitting in the chair today. No ectopy. Tolerating oral intake. Continues to be hypokalemic, with potassium replacement. Reassess for discharge tomorrow if blood cultures have no growth. -potassium replacement -IV hydration -IV hydration with potassium supplementation Nutritional supplementation -stool for FOBT, cultures -continue DuoNebs, Pulmicort -pain management -repeat labs in a.m. Total time spent with patient discussing and formulating plan of care: 35 minutes. This medical document was created using an electronic medical record system with [employer] dictation system. Although this document has been carefully reviewed, there may still be some phonetic and typographical errors. These areas are purely typographical due to imperfections of the software programs, and do not reflect any compromise in the patient's medical care. Plan discussed with: Patient, Other (RN) My Orders Orders - FIDELINA GALEANO NP Procedure Category Date Status Time Blood Culture MANA 02/24/25 In Process 11:37 Mechanical Soft Diet DIET 02/24/25 Transmitted Lunch Date of Service: February 25, 2025 Billing Provider: FIDELINA GALEANO NP Common Visit Codes: [id number] INP/OBS CARE(HIGH) FIDELINA GALEANO NP February 25, 2025 11:17
[2025-02-25] MEDS: POTASSIUM EFFERVESENT TAB 25 MEQ PO ONE (12:37)
[2025-02-26] VITALS (7 sets, daily range): BP systolic 125–144; BP diastolic 76–88; PULSE 95–101; RESP 16–20; TEMP 97.4–98; O2SAT 99–100
[2025-02-26 07:34] LABS: Basophils # (auto) 0 10 ^3/uL (0-0.2); Basophils % (auto) 0.1 % (0.0-2.0); Eosinophils # (auto) 0 10 ^3/uL (0-0.8); Eosinophils % (auto) 0.7 % (0.0-7.0); Hematocrit 31.8 % (41.0-53.0); Hemoglobin 10.8 g/dL (13.5-17.5); Lymphocytes # (auto) 2.1 10 ^3/uL (0.4-5.4); Lymphocytes % (auto) 33.3 % (10.0-50.0); Mean Corpuscular Hgb Conc. 33.9 g/dL (32.0-36.0); Mean Corpuscular Volume 103.2 fL (80.0-100.0); Monocytes # (auto) 0.5 10 ^3/uL (0-1.3); Monocytes % (auto) 8.3 % (0.0-12.0); Neutrophils # (auto) 3.6 10 ^3/uL (1.6-8.6); Neutrophils % (auto) 57.6 % (37.0-80.0); Nucleated Red Blood Cells % 0.1 %; Platelet Count (auto) 328 10^3/uL (140-450); Red Blood Cells 3.08 10^6/uL (4.5-5.90); Red Cell Distribution Width 17.7 % (11.8-14.3); White Blood Cell 6.2 10^3/uL (4.4-10.8)
[2025-02-26 07:48] LABS: Chloride 104 mmol/L (98-107); Potassium 3.8 mmol/L (3.5-5.1); Sodium 140 mmol/L (136-145)
[2025-02-26 07:50] LABS: Anion Gap 7 (5-15); Calcium 8.8 mg/dL (8.7-10.4); Carbon Dioxide 29 mmol/L (20-31)
[2025-02-26 07:55] LABS: BUN/Creatinine Ratio 8.6 (10.0-20.0); Glucose 102 mg/dL (74-106)
[2025-02-26 07:56] LABS: Blood Urea Nitrogen 5 mg/dL (9-23)
[2025-02-26] MEDS ORDERED: AUG875T PO (11:19)
--- NOTE | 2025-02-26 12:08 | DVHDS2 ---
Discharge Summary Date of Admission February 22, 2025 at 07:13 Date of Discharge: February 26, 2025 Admitting Diagnosis Acute hypoxic respiratory failure Labs/Diagnostic Data: Laboratory Results Test 02/26/25 07:10 02/24/25 04:55 02/22/25 07:57 02/22/25 05:14 White Blood Count 6.2 10^3/uL (4.4-10.8) Red Blood Count 3.08 10^6/uL (4.5-5.90) Hemoglobin 10.8 g/dL (13.5-17.5) Hematocrit 31.8 % (41.0-53.0) Mean Corpuscular Volume 103.2 fL (80.0-100.0) Mean Corpuscular Hemoglobin 35.0 pg (28.0-32.0) Mean Corpuscular Hemoglobin Concent 33.9 g/dL (32.0-36.0) Red Cell Distribution Width 17.7 % (11.8-14.3) Platelet Count 328 10^3/uL (140-450) Mean Platelet Volume 6.0 fL (6.9-10.8) Neutrophils (%) (Auto) 57.6 % (37.0-80.0) Lymphocytes (%) (Auto) 33.3 % (10.0-50.0) Monocytes (%) (Auto) 8.3 % (0.0-12.0) Eosinophils (%) (Auto) 0.7 % (0.0-7.0) Basophils (%) (Auto) 0.1 % (0.0-2.0) Neutrophils # (Auto) 3.6 10 ^3/uL (1.6-8.6) Lymphocytes # (Auto) 2.1 10 ^3/uL (0.4-5.4) Monocytes # (Auto) 0.5 10 ^3/uL (0-1.3) Eosinophils # (Auto) 0 10 ^3/uL (0-0.8) Basophils # (Auto) 0 10 ^3/uL (0-0.2) Nucleated Red Blood Cells 0.1 % Sodium Level 140 mmol/L (136-145) Potassium Level 3.8 mmol/L (3.5-5.1) Chloride Level 104 mmol/L (98-107) Carbon Dioxide Level 29 mmol/L (20-31) Anion Gap 7 (5-15) Blood Urea Nitrogen 5 mg/dL (9-23) Creatinine 0.58 mg/dL (0.700-1.30) Glomerular Filtration Rate Calc 101 mL/min (>90) BUN/Creatinine Ratio 8.6 (10.0-20.0) Serum Glucose 102 mg/dL (74-106) Calcium Level 8.8 mg/dL (8.7-10.4) Magnesium Level 2.1 mg/dL (1.6-2.6) Erythrocyte Sedimentation Rate 64 mm/hr (0-20) Lactic Acid Level 1.8 mmol/L (0.4-2.0) Troponin I High Sensitivity 10 ng/L (</=54) C-Reactive Protein High Sensitivity 0.88 mg/dL (<1.0) Test 02/22/25 02:40 02/22/25 02:27 02/22/25 02:13 Urine Color Light-yellow (Yellow) Urine Clarity Clear (Clear) Urine pH 8.0 (5.0-9.0) Urine Specific [place] 1.013 (1.001-1.035) Urine Protein Negative (Negative) Urine Ketones Negative (Negative) Urine Blood Trace /uL (Negative) Urine Nitrite Negative (Negative) Urine Bilirubin Negative (Negative) Urine Urobilinogen Normal mg/dL (Negative) Urine Leukocyte Esterase Negative /uL (Negative) Urine RBC 9 /hpf (0 - 3) Urine Microscopic WBC 2 /HPF (0-3) Urine Squamous Epithelial Cells None seen /hpf (<5) Urine Bacteria None seen /hpf (None Seen) Urine Glucose Trace mg/dL (Normal) Prothrombin Time 11.7 sec (9.3-11.8) Prothrombin Time INR 1.12 (0.9-1.15) Activated Partial Thromboplast Time 23.4 SEC (24.5-34.5) D-Dimer, Quantitative 1.99 mg/L FEU (0.0-0.49) Total Bilirubin 0.6 mg/dL (0.2-1.0) Aspartate Amino Transferase (AST) 32 U/L (13-40) Alanine Aminotransferase (ALT) 26 U/L (7-40) Alkaline Phosphatase 91 U/L (46-116) B-Type Natriuretic Peptide 226.21 pg/mL (0-100) Total Protein 7.2 g/dL (5.7-8.2) Albumin 3.7 g/dL (3.2-4.8) Other Laboratory Tests 02/26/25 07:10 Brief Hx & Hospital Course: History of Present Illness The patient is a 74-year-old male presenting to the emergency room complaints of shortness of breaths, cough, nausea/vomiting, and diarrhea. The patient was recently discharged from this facility on 02/03/2025 after being admitted for right upper chest cellulitis/abscess. Patient states he was of normal health after being discharged up until two days ago when he began having the previously a for mentions symptoms. Patient's symptoms have not resolved, for which he seeking treatment in the hospital. While the patient does not wear oxygen at home the patient states he has been short of breath, is currently on 3 L via [employer]. The patient denies having any sputum production, fevers, chills, or body aches. Significant history of the patient includes hypertension, COPD, and vitamin-D deficiency. Course of hospitalization: Patient was started on IV antibiotic therapy with Zosyn and azithromycin for noted pneumonia on chest x-ray. Patient's QTC was noted to be prolonged, for which the patient was transitioned to doxycycline. Patient was also provided bronchodilators. Blood cultures did come back positive with diphtheroids, in one bottle, probable contamination. Repeat blood cultures negative for growth. Patient has been weaned off oxygen and has been ambulating without any difficulty. White blood cell count is normal. Chest x-ray with improvement of opacities. Patient was requesting to be discharged home. Patient will follow up with the discharge Clinic in one week given his PCP is in [place]. He will be continued on antibiotic therapy with Augmentin 875 mg p.o. b.i.d. for additional seven days. He will also continue all previous home medications as ordered. Physical examination General: Alert and Oriented x3. No acute distress. Well-nourished. Eyes: EOMI. Anicteric. HENT: Moist mucous membranes. Lungs: Clear to auscultation bilaterally. No accessory muscle use. Cardiovascular: Regular rate and rhythm. No murmur. No JVD. Abdomen: Soft, non-tender and non-distended. No palpable masses. Extremities: No edema. Non-tender. Skin: No rashes or lesions. Warm. Neurologic: No focal neurological deficits. CN II-XII grossly intact, but not individually tested. Psychiatric: Cooperative. Appropriate mood and affect. Total time spent with patient discussing and formulating plan of care: 35 minutes. This medical document was created using an electronic medical record system with [employer] system. Although this document has been carefully reviewed, there may still be some phonetic and typographical errors. These areas are purely typographical due to imperfections of the software programs, and do not reflect any compromise in the patient's medical care. Condition at Discharge: Fair Final Diagnosis/Problems List Sepsis secondary to pna Secondary diagnosis: -acute hypoxic respiratory failure -COPD -diarrhea -hypokalemia -accelerated hypertension -chronic back pain -ruled out pulmonary embolus Discharge Disposition: Home Discharge Instruct/Medications Diet: Cardiac 2g Na,low cholest Activity: No Restrictions, As Tolerated Follow Up/Referral: DC in 1 weeks Medications: Augmentin 875 mg po bid x 7 days 36 Discharge Statement: "Patient was advised to return to the ER or call 911 if any headaches, dizziness, shortness of breath, chest pain, abdominal pain, bleeding, fevers, or worsening of medical condition. Patient was counseled about treatment plan, medications, possible side effects, patientverbalized understanding. All questions were answered to the best of my ability. This discharge took greater then 30 minutes in planning, reviewing documentation, counseling the patient, and discussing with other team members." ASSESSMENT ASSESSMENT Assessment Sepsis secondary to pna Date of Service: February 26, 2025 Billing Provider: FIDELINA GALEANO NP Common Visit Codes: [id number]/OBS DISCH DAY >30min FIDELINA GALEANO NP February 26, 2025 12:08
[2025-02-26] MEDS ORDERED: ALBUTEROL SULF 2.5 MG/0.5ML(0.5%) NEB SOLN NEB PRN (12:30)
[2025-02-26] MEDS ORDERED: IPRATROPIUM BROM 0.5 MG/2.5ML INH SOL NEB PRN (12:30)
== END 2025-02-26 13:13 | disposition home or self-care (01) | DRG 871 ==
LOC: ER 01:15 → EDBD 01:15 → OVERFLOW 07:13 → TELE-EAST 17:36
PROVIDERS: ADMIT Nurse Practitioner Acute Care; ATTEND Nurse Practitioner Acute Care
DX: A41.50 Gram-negative sepsis, unspecified (principal); J15.69 Pneumonia due to other Gram-negative bacteria; J96.01 Acute respiratory failure with hypoxia; J15.9 Unspecified bacterial pneumonia; J44.0 Chronic obstructive pulmonary disease with (acute) lower respiratory infection; J44.1 Chronic obstructive pulmonary disease with (acute) exacerbation; I49.3 Ventricular premature depolarization; F17.210 Nicotine dependence, cigarettes, uncomplicated; G89.29 Other chronic pain; E87.6 Hypokalemia; I10 Essential (primary) hypertension; F12.90 Cannabis use, unspecified, uncomplicated; Z87.01 Personal history of pneumonia (recurrent); Z83.3 Family history of diabetes mellitus; Z79.899 Other long term (current) drug therapy
CPT/HCPCS: 36415; 71045; 71275; 80048; 80053; 81001; 83605; 83735; 83880; 84484; 85025; 85379; 85610; 85652; 85730; 86141; 87040; 87081; 93005; 94640; 96365; 96375; 99291; G0378; J2405; J2543